=== PATIENT | male | born 1960 | race Native Hawaiian/Other Pacific Islander ===

== ENCOUNTER → 2017-01-10 | Outpatient (CLI) | payer OTHER ==
[2017-01-10 09:11] LABS: Basophils # (A) 0.1 k/uL (0-0.2); Basophils % (A) 1 %; CH 29.6; CHCM 32.8; Eosinophils # (A) 0.1 k/uL (0-0.7); Eosinophils % (A) 1 %; HCT 44.1 % (39.0-53.0); HDW 2.19; HGB 14.7 gm/dL (13.0-17.5); Luc # (Auto) 0.15; Luc % (Auto) 1; Lymphocytes # (A) 1.6 k/uL (1.0-4.8); Lymphocytes % (A) 13 %; MCH 30.2 pg (25.0-35.0); MCHC 33.3 g/dL (31.0-37.0); MCV 90.7 fL (80.0-100.0); Mean Platelet Volume 6.6; Monocytes # (A) 0.6 k/uL (0-1.0); Monocytes % (A) 5 %; Neutrophils # (A) 10.2 k/uL (1.3-7.7); Neutrophils % (A) 80 %; RBC 4.86 m/uL (4.30-5.90); RDW 13.6 % (11.5-15.5); WBC 12.8 k/uL (3.8-10.6); WBC (Perox) 13.84
[2017-01-10 10:08] LABS: ALT 27 U/L (21-72); AST 25 U/L (17-59); Alkaline Phosphatase 64 U/L (38-126); Anion Gap 11 mmol/L; Blood Urea Nitrogen 10 mg/dL (9-20); Calcium 9.9 mg/dL (8.4-10.2); Carbon Dioxide 27 mmol/L (22-30); Chloride 100 mmol/L (98-107); Cholesterol 191 mg/dL (<200); Glucose 92 mg/dL (74-99); HDL Cholesterol 82 mg/dL (40-60); Non-African American GFR(MDRD) >60 (>60 ml/min/1.73 sqM); Potassium 3.9 mmol/L (3.5-5.1); Sodium 138 mmol/L (137-145); Total Bilirubin 0.6 mg/dL (0.2-1.3); Total Protein 6.7 g/dL (6.3-8.2)
[2017-01-10 11:53] LABS: Hemoglobin A1C 6.3 % (4.2-6.1)
[2017-01-10 13:07] LABS: Prostate Specific Antigen 0.34 ng/mL (0.00-4.00)
== END | disposition home or self-care (01) ==
LOC: LABWHC1 08:35
PROVIDERS: ATTEND Family Medicine
DX: Z00.01 Encounter for general adult medical examination with abnormal findings (principal)
CPT/HCPCS: 36415; 80053; 80061; 82306; 83036; 84153; 84443; 85025

== ENCOUNTER → 2017-04-15 | Outpatient (CLI) | payer OTHER ==
[2017-04-15 10:57] LABS: Basophils # (A) 0.1 k/uL (0-0.2); Basophils % (A) 1 %; CH 29.4; CHCM 32.3; Eosinophils # (A) 0.2 k/uL (0-0.7); Eosinophils % (A) 3 %; HCT 43.5 % (39.0-53.0); HGB 13.8 gm/dL (13.0-17.5); Luc # (Auto) 0.07; Luc % (Auto) 1; Lymphocytes # (A) 2.3 k/uL (1.0-4.8); Lymphocytes % (A) 31 %; MCH 29.1 pg (25.0-35.0); MCHC 31.8 g/dL (31.0-37.0); MCV 91.5 fL (80.0-100.0); Mean Platelet Volume 7.3; Monocytes # (A) 0.5 k/uL (0-1.0); Monocytes % (A) 6 %; Neutrophils # (A) 4.2 k/uL (1.3-7.7); Neutrophils % (A) 57 %; RBC 4.76 m/uL (4.30-5.90); RDW 13.7 % (11.5-15.5); WBC 7.3 k/uL (3.8-10.6); WBC (Perox) 7.47
[2017-04-15 11:11] LABS: ALT 46 U/L (21-72); AST 25 U/L (17-59); Alkaline Phosphatase 92 U/L (38-126); Anion Gap 5 mmol/L; Blood Urea Nitrogen 11 mg/dL (9-20); Carbon Dioxide 30 mmol/L (22-30); Chloride 101 mmol/L (98-107); Glucose 99 mg/dL (74-99); Non-African American GFR(MDRD) >60 (>60 ml/min/1.73 sqM); Potassium 5.1 mmol/L (3.5-5.1); Sodium 136 mmol/L (137-145); Total Bilirubin 0.8 mg/dL (0.2-1.3); Total Protein 6.5 g/dL (6.3-8.2)
== END | disposition home or self-care (01) ==
LOC: LABWHC1 10:07
PROVIDERS: ATTEND Family Medicine
DX: E11.9 Type 2 diabetes mellitus without complications (principal)
CPT/HCPCS: 36415; 80053; 83036; 85025

== ENCOUNTER → 2017-08-12 | Outpatient (CLI) | payer OTHER ==
[2017-08-12 11:10] LABS: Basophils # (A) 0.1 k/uL (0-0.2); Basophils % (A) 1 %; Eosinophils # (A) 0.2 k/uL (0-0.7); Eosinophils % (A) 4 %; HCT 39.5 % (39.0-53.0); Lymphocytes # (A) 1.9 k/uL (1.0-4.8); Lymphocytes % (A) 30 %; MCH 28.8 pg (25.0-35.0); MCHC 32.9 g/dL (31.0-37.0); MCV 87.7 fL (80.0-100.0); Mean Platelet Volume 7.6; Monocytes # (A) 0.5 k/uL (0-1.0); Monocytes % (A) 7 %; Neutrophils # (A) 3.6 k/uL (1.3-7.7); Neutrophils % (A) 56 %; Platelet Count 183 k/uL (150-450); RBC 4.51 m/uL (4.30-5.90); RDW 13.2 % (11.5-15.5); WBC 6.4 k/uL (3.8-10.6)
[2017-08-12 11:17] LABS: ALT 39 U/L (21-72); AST 45 U/L (17-59); Alkaline Phosphatase 67 U/L (38-126); Anion Gap 11 mmol/L; Blood Urea Nitrogen 11 mg/dL (9-20); Calcium 9.5 mg/dL (8.4-10.2); Carbon Dioxide 31 mmol/L (22-30); Chloride 99 mmol/L (98-107); Cholesterol 177 mg/dL (<200); Glucose 121 mg/dL (74-99); HDL Cholesterol 75 mg/dL (40-60); LDL Cholesterol,Calculated 76 mg/dL (0-99); Potassium 4.5 mmol/L (3.5-5.1); Sodium 141 mmol/L (137-145); Total Bilirubin 0.6 mg/dL (0.2-1.3); Total Protein 6.5 g/dL (6.3-8.2); Triglycerides 128 mg/dL (<150)
[2017-08-12 11:45] LABS: Prostate Specific Antigen 0.43 ng/mL (0.00-4.00)
== END | disposition home or self-care (01) ==
LOC: LABWHC1 10:32
PROVIDERS: ATTEND Family Medicine
DX: Z00.01 Encounter for general adult medical examination with abnormal findings (principal)
CPT/HCPCS: 36415; 80053; 80061; 82306; 84153; 85025

== ENCOUNTER 2018-04-11 09:41 | Inpatient (IN) | payer MEDICARE, OTHER ==
[2018-04-11] MEDS ORDERED: SODIUM CHLORIDE 0.9% 1,000 ML IV ONE ×3 (09:49→11:18)
[2018-04-11] MEDS ORDERED: LORazepam 2 MG/ML INJ IV STA ×3 (09:59→16:08)
--- NOTE | 2018-04-11 10:14 | ED ---
Altered Mental Status HPI - General Source: patient, EMS, RN notes reviewed Mode of arrival: EMS Limitations: altered mental status <Brian Humphreys - Last Filed: 04/11/18 11:19> <Alejandro Melgoza - Last Filed: 04/12/18 07:34> - General Stated Complaint: altered Time Seen by Provider: 04/11/18 09:48 - History of Present Illness Initial Comments: This a 57-year-old male presents emergency department via EMS for altered mental status. Information is very limited in primary given by EMS. They were called to his residency by family for mL behavior. Patient is repetitive stating that he needs air he does have a history of diabetes, alcoholism. Patient denies any areas or complaint including pain. Patient has had no recent illnesses. No obvious injuries. Unclear patient takes any medications currently unclear if he has meant drugs or alcohol on board. After being in the ER for shortness the time. Patient decided be more responsive. Patient states that he's been sick for last few days with he goes the flu. Patient states that nausea vomiting diarrhea. He complains of abdominal pain. Patient states has not drank alcohol in one month. It no history of seizures. Patient states that his family called 911. (Brian Humphreys) - Related Data Home Medications Medication Instructions Recorded Confirmed Omeprazole [PriLOSEC] 20 mg PO AC-BID 01/20/14 04/11/18 Escitalopram [Lexapro] 20 mg PO BID 04/11/18 04/11/18 Gabapentin [Neurontin] 200 mg PO TID 04/11/18 04/11/18 Metoprolol Tartrate [Lopressor] 50 mg PO BID 04/11/18 04/11/18 Pioglitazone HCl [Actos] 15 mg PO DAILY 04/11/18 04/11/18 metFORMIN HCL [Glucophage] 1,000 mg PO AC-BID 04/11/18 04/11/18 Allergies Allergy/AdvReac Type Severity Reaction Status Date / Time codeine AdvReac Nausea & Verified 08/05/15 09:25 Vomiting Review of Systems ROS Other: All systems not noted in ROS Statement are negative. <Brian Humphreys - Last Filed: 04/11/18 11:19> ROS Other: All systems not noted in ROS Statement are negative. <Alejandro Melgoza - Last Filed: 04/12/18 07:34> ROS Statement: Those systems with pertinent positive or pertinent negative responses have been documented in the HPI. Past Medical History Past Medical History: Diabetes Mellitus, GERD/Reflux, Hypertension History of Any Multi-Drug Resistant Organisms: None Reported Past Surgical History: No Surgical Hx Reported Past Anesthesia/Blood Transfusion Reactions: No Reported Reaction Past Psychological History: Anxiety, Depression Smoking Status: Current every day smoker Past Alcohol Use History: None Reported Past Drug Use History: None Reported <Brian Humphreys - Last Filed: 04/11/18 11:19> - Past Family History Father Family Medical History: Cancer, Diabetes Mellitus, Eye Disorder Additional Family Medical History / Comment(s): Father had stomach cancer. He was a diabetic and was blind. He had amputations. Mother Family Medical History: Musculoskeletal Disorder, Neurologic Disorder Additional Family Medical History / Comment(s): Mother is . She had parkinson's and neuropathies. <Alejandro Melgoza - Last Filed: 04/12/18 07:34> General Exam Limitations: altered mental status General appearance: alert, in no apparent distress Head exam: Present: atraumatic, normocephalic, normal inspection Eye exam: Present: normal appearance, PERRL, EOMI. Absent: scleral icterus, conjunctival injection, periorbital swelling ENT exam: Present: normal exam, normal oropharynx, mucous membranes moist, TM's normal bilaterally Neck exam: Present: normal inspection, full ROM. Absent: tenderness, meningismus, lymphadenopathy Respiratory exam: Present: normal lung sounds bilaterally. Absent: respiratory distress, wheezes, rales, rhonchi, stridor Cardiovascular Exam: Present: regular rate, normal rhythm, normal heart sounds. Absent: systolic murmur, diastolic murmur, rubs, gallop, clicks GI/Abdominal exam: Present: soft, tenderness, normal bowel sounds. Absent: distended, guarding, rebound, rigid Neurological exam: Present: alert, oriented X3 Skin exam: Present: warm, dry, intact, normal color. Absent: rash <Brian Humphreys - Last Filed: 04/11/18 11:19> Limitations: altered mental status General appearance: alert, appears intoxicated, anxious, in distress Head exam: Present: atraumatic, normocephalic, normal inspection Eye exam: Present: normal appearance, PERRL, EOMI. Absent: scleral icterus, conjunctival injection, periorbital swelling ENT exam: Present: normal exam, mucous membranes moist Neck exam: Present: normal inspection. Absent: tenderness, meningismus, lymphadenopathy Respiratory exam: Present: normal lung sounds bilaterally. Absent: respiratory distress, wheezes, rales, rhonchi, stridor Cardiovascular Exam: Present: regular rate, normal rhythm, normal heart sounds. Absent: systolic murmur, diastolic murmur, rubs, gallop, clicks GI/Abdominal exam: Present: soft, normal bowel sounds. Absent: distended, tenderness, guarding, rebound, rigid Extremities exam: Present: normal inspection, full ROM, normal capillary refill. Absent: tenderness, pedal edema, joint swelling, calf tenderness Back exam: Present: normal inspection Neurological exam: Present: alert, oriented X3, CN II-XII intact Psychiatric exam: Present: normal affect, agitated, anxious Skin exam: Present: warm, dry, intact, normal color. Absent: rash <Alejandro Melgoza - Last Filed: 04/12/18 07:34> Course <Brian Humphreys - Last Filed: 04/11/18 11:19> <Alejandro Melgoza - Last Filed: 04/12/18 07:34> Vital Signs 04/11/18 04/11/18 04/11/18 09:50 10:00 10:10 Temperature Pulse Rate 60 62 Respiratory 22 24 Rate Blood Pressure 156/76 95/77 80/65 O2 Sat by Pulse 95 Oximetry 04/11/18 04/11/18 04/11/18 10:20 10:30 10:40 Temperature Pulse Rate 63 64 Respiratory 24 24 Rate Blood Pressure 80/65 48/31 58/40 O2 Sat by Pulse Oximetry 04/11/18 04/11/18 04/11/18 10:50 11:00 11:30 Temperature Pulse Rate 66 64 66 Respiratory 24 21 15 Rate Blood Pressure 59/41 58/38 53/31 O2 Sat by Pulse 69 L 97 Oximetry 04/11/18 04/11/18 04/11/18 11:40 11:50 12:00 Temperature Pulse Rate 64 64 66 Respiratory 14 14 14 Rate Blood Pressure 56/36 73/51 89/59 O2 Sat by Pulse Oximetry 04/11/18 04/11/18 04/11/18 12:10 12:30 12:40 Temperature Pulse Rate 69 69 69 Respiratory 14 20 20 Rate Blood Pressure 95/61 93/61 94/66 O2 Sat by Pulse Oximetry 04/11/18 04/11/18 04/11/18 12:50 13:00 13:10 Temperature Pulse Rate 74 72 72 Respiratory 20 20 20 Rate Blood Pressure 112/92 100/65 95/62 O2 Sat by Pulse Oximetry 04/11/18 04/11/18 04/11/18 13:20 14:00 14:10 Temperature Pulse Rate 72 73 73 Respiratory 20 22 20 Rate Blood Pressure 93/61 93/61 93/61 O2 Sat by Pulse Oximetry 04/11/18 04/11/18 04/11/18 14:20 14:30 14:40 Temperature Pulse Rate 73 76 Respiratory 20 20 20 Rate Blood Pressure 93/61 88/62 83/61 O2 Sat by Pulse Oximetry 04/11/18 04/11/18 04/11/18 14:50 15:00 15:10 Temperature Pulse Rate 73 73 77 Respiratory 20 20 20 Rate Blood Pressure 96/64 94/60 92/55 O2 Sat by Pulse Oximetry 04/11/18 04/11/18 04/11/18 15:20 15:30 15:40 Temperature Pulse Rate 75 80 Respiratory 20 20 20 Rate Blood Pressure 91/57 93/60 97/63 O2 Sat by Pulse Oximetry 04/11/18 04/11/18 04/11/18 15:50 16:00 16:10 Temperature Pulse Rate 78 78 84 Respiratory 20 23 20 Rate Blood Pressure 95/61 87/58 112/72 O2 Sat by Pulse 100 100 Oximetry 04/11/18 04/11/18 04/11/18 16:20 16:30 16:45 Temperature Pulse Rate 82 79 78 Respiratory 21 20 20 Rate Blood Pressure 97/62 90/62 89/54 O2 Sat by Pulse Oximetry 04/11/18 04/11/18 04/11/18 17:00 17:15 17:30 Temperature Pulse Rate 78 78 84 Respiratory 20 20 20 Rate Blood Pressure 86/55 92/62 94/58 O2 Sat by Pulse Oximetry 04/11/18 04/11/18 04/11/18 17:45 18:00 18:01 Temperature 95.6 F L Pulse Rate 89 81 81 Respiratory 27 H 30 H 20 Rate Blood Pressure 123/88 88/51 95/59 O2 Sat by Pulse 99 100 Oximetry 04/11/18 18:15 Temperature Pulse Rate 81 Respiratory 30 H Rate Blood Pressure 90/60 O2 Sat by Pulse 100 Oximetry - Reevaluation(s) Reevaluation #1: 04/11/18 10:38 Upon initial vitals unable to obtain temp rectal temp was attempted with no success. Patient is cool to the touch. Warming will be started at this time. Concern as he is hypotensive which is worsening. Patient is given 2 L of IV fluids. Second peripheral line was ordered though central line will be placed secondary to hypotension. Celeste was ordered to assess urinary output. Labs were obtained. Rocephin will be ordered for concerns for infection causing hypotension. (Brian Humphreys) Reevaluation #2: 04/11/18 11:19 Critical labs were reported at this time with lactic acidosis 22.5, white count 25, critically low CO2 with an elevated ammonia. 30 mL/kg fluid bolus is initiated on 3 L. (Brian Humphreys) Reevaluation #3: 04/11/18 13:06 Patient significantly low blood pressure low temperature and bradycardic, central line was placed, patient does have blood pressure medication added, left -sided, patient given significant fluid bolus, multiple antibiotics, patient intubated for airway and sedation as well as patient safety, (Alejandro Melgoza) Reevaluation #4: 04/11/18 17:[address] Peace for nephrology after Dr. Casey for she was evaluated patient, patient will be scheduled for dialysis, we will obtain vascular consult by Dr. Harvey for emergent dialysis. 04/11/18 17:05 (Alejandro Melgoza) Reevaluation #5: 04/11/18 17:01 Patient is still not made urine despite significant amounts of IV fluid, pressure control drugs, patient will continue on IV antibiotics, started on bicarb drip secondary severe acidosis (Alejandro Melgoza) Procedures - Central Line Placement Right IJ Consent Obtained: emergent situation Time Out Performed: Yes Patient Placed on Monitor/Pulse Ox: Yes MD Prep: mask, gown, gloves Central Line Prep: Chlorhexidine scrub Ultrasound Used for Placement: Yes Central Line Lumen Inserted: triple Bloods Obtained for Lab: Yes Central Line Position: good blood return Dressing Applied: Tegaderm Post Procedure X-Ray: tip of catheter in good position Patient Tolerated Procedure: well Complications: none <Alejandro Melgoza - Last Filed: 04/12/18 07:34> Medical Decision Making - Lab Data Result diagrams: 04/11/18 10:29 <Brian Humphreys - Last Filed: 04/11/18 11:19> - Lab Data Result diagrams: 04/12/18 03:18 04/12/18 03:18 - EKG Data -: EKG Interpreted by Me (EKG shows sinus rhythm rate of 74, AR 240, QRS 06, QTc 621) - Radiology Data Radiology results: report reviewed (CT brain negative chest x-rays negative), image reviewed <Alejandro Melgoza - Last Filed: 04/12/18 07:34> - Medical Decision Making 57 male the ER with altered mental status, multifactorial cardiopulmonary collapse, patient bradycardic hypotensive hypothermic, placed on antibiotics central line in abated secondary to acute respiratory failure. Patient be admitted for ICU treatment and care (Alejandro Melgoza) - Lab Data Lab Results 04/11/18 04/11/18 04/11/18 Range/Units 10:29 10:29 10:29 WBC 25.6 H (3.8-10.6) k/uL RBC 4.16 L (4.30-5.90) m/uL Hgb 12.5 L (13.0-17.5) gm/dL Hct 38.8 L (39.0-53.0) % MCV 93.3 (80.0-100.0) fL MCH 30.0 (25.0-35.0) pg MCHC 32.1 (31.0-37.0) g/dL RDW 13.2 (11.5-15.5) % Plt Count 382 (150-450) k/uL Neutrophils % 83 % Lymphocytes % 13 % Monocytes % 3 % Eosinophils % 0 % Basophils % 0 % Neutrophils # 21.2 H (1.3-7.7) k/uL Lymphocytes # 3.2 (1.0-4.8) k/uL Monocytes # 0.8 (0-1.0) k/uL Eosinophils # 0.0 (0-0.7) k/uL Basophils # 0.1 (0-0.2) k/uL Manual Slide Review Performed PT (9.0-12.0) sec INR (<1.2) APTT (22.0-30.0) sec Sample Site ABG pH (7.35-7.45) ABG pCO2 (35-45) mmHg ABG pO2 (83-108) mmHg ABG HCO3 (21-25) mmol/L ABG Total CO2 (19-24) mmol/L ABG O2 Saturation (94-97) % ABG Base Excess mmol/L Tyler Test FiO2 % Sodium (137-145) mmol/L Potassium (3.5-5.1) mmol/L Chloride (98-107) mmol/L Carbon Dioxide (22-30) mmol/L Anion Gap mmol/L BUN (9-20) mg/dL Creatinine (0.66-1.25) mg/dL Est GFR (CKD-EPI)AfAm (>60 ml/min/1.73 sqM) Est GFR (CKD-EPI)NonAf (>60 ml/min/1.73 sqM) Glucose (74-99) mg/dL POC Glucose (mg/dL) (75-99) mg/dL POC Glu Head Of Loss Prevention ID Estimated Ave Glu mg/dL Hemoglobin A1c (4.0-6.0) % Lactic Ac Sepsis Rflx Plasma Lactic Acid Marvin 22.5 H* (0.7-2.0) mmol/L Calcium (8.4-10.2) mg/dL Total Bilirubin (0.2-1.3) mg/dL AST (17-59) U/L ALT (21-72) U/L Alkaline Phosphatase (38-126) U/L Ammonia 71 H (<30) umol/L Total Creatine Kinase 50 L (55-170) U/L CK-MB (CK-2) 1.4 (0.0-2.4) ng/mL CK-MB (CK-2) Rel Index 2.8 Troponin I 0.019 (0.000-0.034) ng/mL Total Protein (6.3-8.2) g/dL Albumin (3.5-5.0) g/dL Serum Alcohol mg/dL 04/11/18 04/11/18 04/11/18 Range/Units 10:29 10:29 10:29 WBC (3.8-10.6) k/uL RBC (4.30-5.90) m/uL Hgb (13.0-17.5) gm/dL Hct (39.0-53.0) % MCV (80.0-100.0) fL MCH (25.0-35.0) pg MCHC (31.0-37.0) g/dL RDW (11.5-15.5) % Plt Count (150-450) k/uL Neutrophils % % Lymphocytes % % Monocytes % % Eosinophils % % Basophils % % Neutrophils # (1.3-7.7) k/uL Lymphocytes # (1.0-4.8) k/uL Monocytes # (0-1.0) k/uL Eosinophils # (0-0.7) k/uL Basophils # (0-0.2) k/uL Manual Slide Review PT 11.0 (9.0-12.0) sec INR 1.1 (<1.2) APTT 33.0 H (22.0-30.0) sec Sample Site ABG pH (7.35-7.45) ABG pCO2 (35-45) mmHg ABG pO2 (83-108) mmHg ABG HCO3 (21-25) mmol/L ABG Total CO2 (19-24) mmol/L ABG O2 Saturation (94-97) % ABG Base Excess mmol/L Tyler Test FiO2 % Sodium 120 L (137-145) mmol/L Potassium 3.4 L (3.5-5.1) mmol/L Chloride 72 L* (98-107) mmol/L Carbon Dioxide <5 L* (22-30) mmol/L Anion Gap mmol/L BUN 56 H (9-20) mg/dL Creatinine 9.37 H* (0.66-1.25) mg/dL Est GFR (CKD-EPI)AfAm 6 (>60 ml/min/1.73 sqM) Est GFR (CKD-EPI)NonAf 6 (>60 ml/min/1.73 sqM) Glucose 222 H (74-99) mg/dL POC Glucose (mg/dL) (75-99) mg/dL POC Glu Head Of Loss Prevention ID Estimated Ave Glu mg/dL 151 Hemoglobin A1c 6.9 H (4.0-6.0) % Lactic Ac Sepsis Rflx Plasma Lactic Acid Marvin (0.7-2.0) mmol/L Calcium 8.9 (8.4-10.2) mg/dL Total Bilirubin 0.5 (0.2-1.3) mg/dL AST 58 (17-59) U/L ALT 56 (21-72) U/L Alkaline Phosphatase 60 (38-126) U/L Ammonia (<30) umol/L Total Creatine Kinase (55-170) U/L CK-MB (CK-2) (0.0-2.4) ng/mL CK-MB (CK-2) Rel Index Troponin I (0.000-0.034) ng/mL Total Protein 6.2 L (6.3-8.2) g/dL Albumin 3.9 (3.5-5.0) g/dL Serum Alcohol <10 mg/dL 04/11/18 04/11/18 04/11/18 Range/Units 11:16 11:55 12:42 WBC (3.8-10.6) k/uL RBC (4.30-5.90) m/uL Hgb (13.0-17.5) gm/dL Hct (39.0-53.0) % MCV (80.0-100.0) fL MCH (25.0-35.0) pg MCHC (31.0-37.0) g/dL RDW (11.5-15.5) % Plt Count (150-450) k/uL Neutrophils % % Lymphocytes % % Monocytes % % Eosinophils % % Basophils % % Neutrophils # (1.3-7.7) k/uL Lymphocytes # (1.0-4.8) k/uL Monocytes # (0-1.0) k/uL Eosinophils # (0-0.7) k/uL Basophils # (0-0.2) k/uL Manual Slide Review PT (9.0-12.0) sec INR (<1.2) APTT (22.0-30.0) sec Sample Site rbrach ABG pH 7.01 L* (7.35-7.45) ABG pCO2 18 L* (35-45) mmHg ABG pO2 >400 H (83-108) mmHg ABG HCO3 5 L* (21-25) mmol/L ABG Total CO2 5 L (19-24) mmol/L ABG O2 Saturation 100.0 H (94-97) % ABG Base Excess -26.7 mmol/L Tyler Test Yes FiO2 100 % Sodium (137-145) mmol/L Potassium (3.5-5.1) mmol/L Chloride (98-107) mmol/L Carbon Dioxide (22-30) mmol/L Anion Gap mmol/L BUN (9-20) mg/dL Creatinine (0.66-1.25) mg/dL Est GFR (CKD-EPI)AfAm (>60 ml/min/1.73 sqM) Est GFR (CKD-EPI)NonAf (>60 ml/min/1.73 sqM) Glucose (74-99) mg/dL POC Glucose (mg/dL) 250 H (75-99) mg/dL POC Glu Head Of Loss Prevention ID Jorge Kirkland Estimated Ave Glu mg/dL Hemoglobin A1c (4.0-6.0) % Lactic Ac Sepsis Rflx Y Plasma Lactic Acid Marvin (0.7-2.0) mmol/L Calcium (8.4-10.2) mg/dL Total Bilirubin (0.2-1.3) mg/dL AST (17-59) U/L ALT (21-72) U/L Alkaline Phosphatase (38-126) U/L Ammonia (<30) umol/L Total Creatine Kinase (55-170) U/L CK-MB (CK-2) (0.0-2.4) ng/mL CK-MB (CK-2) Rel Index Troponin I (0.000-0.034) ng/mL Total Protein (6.3-8.2) g/dL Albumin (3.5-5.0) g/dL Serum Alcohol mg/dL Critical Care Time Critical Care Time: Yes Total Critical Care Time: 95 <Alejandro Melgoza - Last Filed: 04/12/18 07:34> Disposition <Brian Humphreys - Last Filed: 04/11/18 11:19> Is patient prescribed a controlled substance at d/c from ED?: No <Alejandro Melgoza - Last Filed: 04/12/18 07:34> Clinical Impression: Altered mental status, Delirium due to general medical condition, Lactic acidosis, Acute renal failure, Alcohol abuse, Hyperglycemia, Acute respiratory failure, Drug overdose, Hypovolemic shock Disposition: ADMITTED IP TO THIS HOSP Condition: Critical
[2018-04-11] MEDS ORDERED: NALOXONE 0.4 MG/ML 1 ML VIAL IV STA (10:38)
[2018-04-11] MEDS ORDERED: HYDROCORTISONE SUCCINATE 100 MG/2 ML VIAL IV STA (10:41)
[2018-04-11 10:47] LABS: Basophils # (A) 0.1 k/uL (0-0.2); Basophils % (A) 0 %; Eosinophils % (A) 0 %; HCT 38.8 % (39.0-53.0); HGB 12.5 gm/dL (13.0-17.5); Lymphocytes # (A) 3.2 k/uL (1.0-4.8); Lymphocytes % (A) 13 %; MCHC 32.1 g/dL (31.0-37.0); MCV 93.3 fL (80.0-100.0); Mean Platelet Volume 7.1; Monocytes # (A) 0.8 k/uL (0-1.0); Monocytes % (A) 3 %; Neutrophils # (A) 21.2 k/uL (1.3-7.7); Neutrophils % (A) 83 %; Platelet Count 382 k/uL (150-450); RBC 4.16 m/uL (4.30-5.90); RDW 13.2 % (11.5-15.5); WBC 25.6 k/uL (3.8-10.6)
[2018-04-11] MEDS ORDERED: fentaNYL (PF) 50 MCG/ML 2 ML AMP IV STA ×2 (10:50→13:45)
[2018-04-11 10:57] LABS: INR 1.1 (<1.2)
[2018-04-11 11:02] LABS: ALT 56 U/L (21-72); AST 58 U/L (17-59); Albumin 3.9 g/dL (3.5-5.0); Alcohol <10 mg/dL; Alkaline Phosphatase 60 U/L (38-126); Blood Urea Nitrogen 56 mg/dL (9-20); Calcium 8.9 mg/dL (8.4-10.2); Glucose 222 mg/dL (74-99); Potassium 3.4 mmol/L (3.5-5.1); Sodium 120 mmol/L (137-145); Total Bilirubin 0.5 mg/dL (0.2-1.3); Total Protein 6.2 g/dL (6.3-8.2)
[2018-04-11] MEDS ORDERED: MIDAZOLAM 1 MG/ML 5 ML VIAL IV STA ×5 (11:13→16:21)
[2018-04-11 11:16] LABS: Lactic Acid, Venous 22.5 mmol/L (0.7-2.0)
[2018-04-11 11:22] LABS: Creatine Kinase MB 1.4 ng/mL (0.0-2.4); Troponin I 0.019 ng/mL (0.000-0.034)
[2018-04-11] MEDS ORDERED: SUCCINYLCHOLINE CHLORIDE VIAL 200 MG/10 ML VIAL IV STA (11:23)
[2018-04-11 11:28] LABS: Carbon Dioxide <5 mmol/L (22-30)
[2018-04-11 11:31] LABS: Chloride 72 mmol/L (98-107)
[2018-04-11] MEDS: NOREPINEPHRINE 4 MG in SODIUM CHLORIDE 0.9% 250 ML IV ONE ×2 (11:45→19:51)
[2018-04-11] MEDS ORDERED: SODIUM CHLORIDE 0.9% 1,000 ML IV STA ×2 (11:52)
[2018-04-11] MEDS ORDERED: PIPERACILLIN-TAZOBACTAM 3.375 GM in SODIUM CHLORIDE 0.9% 100 ML IVPB STA (11:52)
[2018-04-11] MEDS ORDERED: VANCOMYCIN IV PER PHARMACY 1 EACH MISC MISCELLANE PRN (11:52)
[2018-04-11] MEDS ORDERED: SODIUM CHLORIDE 0.9% 500 ML 500 ML IV STA (11:52)
[2018-04-11] MEDS ORDERED: SODIUM BICARB 8.4% 50 ML SYR (1 MEQ/ML) IV ONE ×2 (11:53)
[2018-04-11 11:58] LABS: ABG Base Excess -26.7 mmol/L; ABG PO2 >400 mmHg (83-108); ABG TCO2 5 mmol/L (19-24)
[2018-04-11] MEDS ORDERED: VANCOMYCIN 1,750 MG in SODIUM CHLORIDE 0.9% 500 ML 500 ML IVPB STA (12:01)
[2018-04-11 12:04] LABS: ABG HCO3 5 mmol/L (21-25); ABG PCO2 18 mmHg (35-45); ABG PH 7.01 (7.35-7.45)
--- NOTE | 2018-04-11 12:46 | XR ---
EXAMINATION TYPE: XR chest 1V portable DATE OF EXAM: 04/11/2018 COMPARISON: 02/12/2011 INDICATION: Pain, line placement TECHNIQUE: Single frontal view of the chest is obtained. FINDINGS: The heart size is normal. The pulmonary vasculature is normal. The lungs are clear. There is placement of a right central venous catheter with tip in the proximal right atrium. No pneum othorax. Endotracheal tube tip above dasha. Nasogastric tube present with tip in the proximal the ab domen. IMPRESSION: 1. No pneumothorax post line placement. Tip is in the proximal right atrium. 2. Additional lines and catheters discussed above. Nasogastric tube could be advanced approximately 3 cm for more typical for placement.
[2018-04-11 12:58] LABS: Glucose,Whole Blood 250 mg/dL (75-99)
[2018-04-11] MEDS ORDERED: NALOXONE 0.4 MG/ML 1 ML VIAL IV PRN (13:08)
[2018-04-11] MEDS ORDERED: LACTATED RINGERS 1,000 ML IV SCH (13:15)
--- NOTE | 2018-04-11 13:58 | CT ---
EXAMINATION TYPE: CT brain wo con DATE OF EXAM: 04/11/2018 COMPARISON: NONE HISTORY: Altered mental status changes CT DLP: 1179.4 mGycm. Automated Exposure Control for Dose Reduction was Utilized. TECHNIQUE: CT scan of the head is performed without contrast. FINDINGS: Punctate basal ganglia calcification is seen on the left. There is no acute intracranial h emorrhage or midline shift identified. There is diffuse ventricular and sulcal prominence consistent with diffuse age-related cerebral atrophy. There are a few patchy areas of hypoattenuation in the pe riventricular white matter most commonly related to chronic small vessel ischemic change. The globes are intact and the visualized sinuses are clear. IMPRESSION: No acute intracranial hemorrhage, mass effect, or midline shift is seen. No acute intrac ranial process.
[2018-04-11] MEDS ORDERED: MORPHINE SULFATE 2 MG/ML SYRINGE IVP PRN (14:08)
[2018-04-11] MEDS ORDERED: ONDANSETRON 4 MG/2 ML VIAL IVP PRN (14:08)
[2018-04-11 14:26] LABS: ABG Base Excess -23.6 mmol/L; ABG Oxygen Saturation 99.6 % (94-97); ABG PO2 208 mmHg (83-108); ABG TCO2 7 mmol/L (19-24)
[2018-04-11 14:46] LABS: ABG HCO3 6 mmol/L (21-25); ABG PCO2 19 mmHg (35-45); ABG PH 7.11 (7.35-7.45)
[2018-04-11] MEDS ORDERED: MIDAZOLAM HCL 100 MG in SODIUM CHLORIDE 0.9% 80 ML IV SCH (15:00)
[2018-04-11] MEDS ORDERED: fentaNYL (PF) 50 MCG/ML 2 ML AMP IV PRN (15:12)
[2018-04-11] MEDS ORDERED: DEXTROSE 5% IN WATER 1,000 ML with SODIUM BICARB (1 MEQ/ML) 150 ML IV SCH (15:15)
[2018-04-11] MEDS: DEXTROSE 5% IN WATER 1,000 ML with SODIUM BICARB (1 MEQ/ML) 100 ML IV SCH (15:22)
--- NOTE | 2018-04-11 16:00 | P.HPIM ---
History of Present Illness H&P Date: 04/11/18 Chief Complaint: Altered mental status Patient was seen and evaluated by me in the emergency room. Patient is intubated and unable to provide any history. Most of the history was obtained by chart review and nursing staff report. This is a 57-year-old male was brought into the emergency room by EMS today for altered mental status and confusion. Apparently patient lives by himself and was found by his relatives today when they went to check on him on the floor confused and was saying that he needs air. EMS were called and patient was brought into the emergency room. Patient was awake and very agitated on presentation. He denies any alcohol abuse. Patient was noted to be hypothermic on presentation with temperature of 92.5. He was also tachycardic with a blood pressure of 70/40. Patient had multiple IV fluid boluses. Initial lab work showed evidence of acute kidney failure with acute metabolic acidosis. Patient was eventually started on IV pressors and was intubated and started on mechanical ventilation. Computed tomography scan of the brain in the emergency room showed no acute findings. When I saw him, patient has just returned from computed tomography scan of the brain. He was intubated but not sedated. He was very agitated. He already received 3 L of fluid with normal saline 0.9. Patient is currently anuric. He has a bear hugger and his temperature is 90.3. Broad-spectrum antibiotic ordered. Review of Systems Unable to review other systems as patient is intubated Past Medical History Past Medical History: Diabetes Mellitus, GERD/Reflux, GI Bleed, Hypertension, Liver Disease, Skin Disorder Additional Past Medical History / Comment(s): Barretts esophagus, gastritis, upper GI bleed, ETOH abuse, alcoholic hepatitis, pancytopenia, NIDDM type II, neuropathy bilateral feet, chronic low back pain, bulging disces, gout bilateral knees and ankles, UTI History of Any Multi-Drug Resistant Organisms: None Reported Past Surgical History: Orthopedic Surgery Additional Past Surgical History / Comment(s): EGDs, colonoscopies, R knee arthroscopy Past Anesthesia/Blood Transfusion Reactions: No Reported Reaction Smoking Status: Current every day smoker - Past Family History Father Family Medical History: Cancer, Diabetes Mellitus, Eye Disorder Additional Family Medical History / Comment(s): Father had stomach cancer. He was a diabetic and was blind. He had amputations. Mother Family Medical History: Musculoskeletal Disorder, Neurologic Disorder Additional Family Medical History / Comment(s): Mother is . She had parkinson's and neuropathies. Medications and Allergies Home Medications Medication Instructions Recorded Confirmed Type Omeprazole [PriLOSEC] 20 mg PO AC-BID 01/20/14 04/11/18 History Escitalopram [Lexapro] 20 mg PO BID 04/11/18 04/11/18 History Gabapentin [Neurontin] 200 mg PO TID 04/11/18 04/11/18 History Metoprolol Tartrate [Lopressor] 50 mg PO BID 04/11/18 04/11/18 History Pioglitazone HCl [Actos] 15 mg PO DAILY 04/11/18 04/11/18 History metFORMIN HCL [Glucophage] 1,000 mg PO AC-BID 04/11/18 04/11/18 History Allergies Allergy/AdvReac Type Severity Reaction Status Date / Time codeine AdvReac Nausea & Verified 08/05/15 09:25 Vomiting Physical Exam Vitals: Vital Signs Pulse Resp BP Pulse Ox 04/11/18 12:10 69 14 95/61 04/11/18 12:00 66 14 89/59 04/11/18 11:50 64 14 73/51 04/11/18 11:40 64 14 56/36 04/11/18 11:30 66 15 53/31 04/11/18 11:00 64 21 58/38 97 04/11/18 10:50 66 24 59/41 69 L 04/11/18 10:40 58/40 04/11/18 10:30 64 24 48/31 04/11/18 10:20 63 24 80/65 04/11/18 10:10 62 24 80/65 04/11/18 10:00 60 22 95/77 95 04/11/18 09:50 156/76 Intake and Output 04/11/18 04/11/18 04/11/18 06:59 14:59 22:59 Intake Total 1.875 1.061 Balance 1.875 1.061 Intake: Intake, IV Titration 1.875 1.061 Amount Midazolam HCl 100 mg In 1.061 Sodium Chloride 0.9% 80 ml @ 0.02 MG/KG/HR 1.99 mls/hr IV .Q24H [facility] Rx#: [id number] Norepinephrine 4 mg In 1.875 Sodium Chloride 0.9% 250 ml @ Titrate IV .Q0M ONE Rx#:[id number] Other: Weight 86.636 kg General: The patient is intubated. He appeared agitated and uncomfortable Eye: there is normal conjunctiva bilaterally. Cardiovascular: Normal S1-S2, no S3-S4, no murmurs. Respiratory: Lungs clear to anterior chest auscultation bilaterally With ventilator sounds Gastrointestinal: Abdomen is soft, nontender Musculoskeletal: There is no pedal edema. Skin: Skin is warm and dry Results CBC & Chem 7: 04/11/18 10:29 04/11/18 10:29 Labs: Abnormal Lab Results - Last 24 Hours (Table) 04/11/18 04/11/18 04/11/18 Range/Units 10:29 10:29 10:29 WBC 25.6 H (3.8-10.6) k/uL RBC 4.16 L (4.30-5.90) m/uL Hgb 12.5 L (13.0-17.5) gm/dL Hct 38.8 L (39.0-53.0) % Neutrophils # 21.2 H (1.3-7.7) k/uL APTT (22.0-30.0) sec ABG pH (7.35-7.45) ABG pCO2 (35-45) mmHg ABG pO2 (83-108) mmHg ABG HCO3 (21-25) mmol/L ABG Total CO2 (19-24) mmol/L ABG O2 Saturation (94-97) % Sodium (137-145) mmol/L Potassium (3.5-5.1) mmol/L Chloride (98-107) mmol/L Carbon Dioxide (22-30) mmol/L BUN (9-20) mg/dL Creatinine (0.66-1.25) mg/dL Glucose (74-99) mg/dL POC Glucose (mg/dL) (75-99) mg/dL Plasma Lactic Acid Marvin 22.5 H* (0.7-2.0) mmol/L Ammonia 71 H (<30) umol/L Total Creatine Kinase 50 L (55-170) U/L Total Protein (6.3-8.2) g/dL 04/11/18 04/11/1804/11/18 Range/Units 10:29 10:29 11:55 WBC (3.8-10.6) k/uL RBC (4.30-5.90) m/uL Hgb (13.0-17.5) gm/dL Hct (39.0-53.0) % Neutrophils # (1.3-7.7) k/uL APTT 33.0 H (22.0-30.0) sec ABG pH 7.01 L* (7.35-7.45) ABG pCO2 18 L* (35-45) mmHg ABG pO2 >400 H (83-108) mmHg ABG HCO3 5 L* (21-25) mmol/L ABG Total CO2 5 L (19-24) mmol/L ABG O2 Saturation 100.0 H (94-97) % Sodium 120 L (137-145) mmol/L Potassium 3.4 L (3.5-5.1) mmol/L Chloride 72 L* (98-107) mmol/L Carbon Dioxide <5 L* (22-30) mmol/L BUN 56 H (9-20) mg/dL Creatinine 9.37 H* (0.66-1.25) mg/dL Glucose 222 H (74-99) mg/dL POC Glucose (mg/dL) (75-99) mg/dL Plasma Lactic Acid Marvin (0.7-2.0) mmol/L Ammonia (<30) umol/L Total Creatine Kinase (55-170) U/L Total Protein 6.2 L (6.3-8.2) g/dL 04/11/18 04/11/18 04/11/18 Range/Units 12:42 14:22 14:27 WBC (3.8-10.6) k/uL RBC (4.30-5.90) m/uL Hgb (13.0-17.5) gm/dL Hct (39.0-53.0) % Neutrophils # (1.3-7.7) k/uL APTT (22.0-30.0) sec ABG pH 7.11 L* (7.35-7.45) ABG pCO2 19 L* (35-45) mmHg ABG pO2 208 H (83-108) mmHg ABG HCO3 6 L* (21-25) mmol/L ABG Total CO2 7 L (19-24) mmol/L ABG O2 Saturation 99.6 H (94-97) % Sodium (137-145) mmol/L Potassium (3.5-5.1) mmol/L Chloride (98-107) mmol/L Carbon Dioxide (22-30) mmol/L BUN (9-20) mg/dL Creatinine (0.66-1.25) mg/dL Glucose (74-99) mg/dL POC Glucose (mg/dL) 250 H (75-99) mg/dL Plasma Lactic Acid Marvin 15.9 H* (0.7-2.0) mmol/L Ammonia (<30) umol/L Total Creatine Kinase (55-170) U/L Total Protein (6.3-8.2) g/dL Thrombosis Risk Factor Assmnt - Choose All That Apply Any of the Below Risk Factors Present?: Yes Each Factor Represents 1 point: Age 41-60 years, Medical pt on bed rest, Serious lung disease incl. pneumonia (< 1month) Other Risk Factors: Yes Each Risk Factor Represents 2 Points: Patient confined to bed Other congenital or acquired thrombophilia - If yes, enter type in comment: No Thrombosis Risk Factor Assessment Total Risk Factor Score: 5 Thrombosis Risk Factor Assessment Level: High Risk Assessment and Plan Assessment: 1. Acute metabolic acidosis: PH of 7.0. I ordered a bicarb drip. Nephrology consulted to evaluate if patient may require acute dialysis. Case discussed by ER staff with nephrology awaiting recommendations. 2. Hypovolemic shock: Lactic acid of 22 on presentation. Patient received 3 L of IV fluid with normal saline. He is currently on levophed 20 g per hour. There is a fourth liter ordered. 3. Acute kidney injury, anuric: We'll continue aggressive IV fluid hydration. Celeste catheter in place for strict urine output measurement 4. History of alcohol abuse. Patient denies any alcohol use on presentation. Alcohol level was negative 5. Significant dehydration 6. Systemic inflammatory response syndrome with no established source of infection This is a 57-year-old male who presented to the emergency room with hypothermia and multiorgan failure. The history is not clear. Apparently he was found at home. It is unclear to me if his house was warm. It is unclear when the patient was last seen normal. No family members at bedside to provide further history. Today, I reviewed his lab work results and medication list. As patient was significantly agitated with the ET tube in place I ordered sedation with IV potassium one time dose and then a drip as well as IV fentanyl when necessary. I started him on a bicarb drip. I ordered repeat ABG that showed slight improvement in his pH. Awaiting recommendation from nephrology regarding possible dialysis as tolerated. Patient will be admitted to the ICU. Tube Closing Machine Operator has been consulted. Central line established. Patient was started on broad-spectrum antibiotic with no established source of infection. Patient's overall prognosis is critical. Time with Patient: Greater than 30
[2018-04-11] MEDS ORDERED: MIDAZOLAM 2 MG/2 ML VIAL IV STA (16:11)
[2018-04-11 16:14] LABS: Calcium 7.3 mg/dL (8.4-10.2); Potassium 3.3 mmol/L (3.5-5.1)
--- NOTE | 2018-04-11 16:52 | P.CNPUL ---
History of Present Illness Consult date: 04/11/18 Requesting physician: Walker Mckeon Reason for consult: other (Acute respiratory failure) Chief complaint: Altered mental status and shortness of breath History of present illness: This is a 57-year-old white male supposedly has history of hypertension, diabetes, liver disease, and previous history of GI bleeding, history of Asencio esophagus, gastritis, alcoholic hepatitis, neuropathy related to diabetes, chronic back pain, gouty arthritis, patient presented to the ER by EMS were in he was found to have altered mental status and confusion. Patient apparently lives by himself, and he was found by his relatives confused, and complaining of shortness of breath asking for more air. Upon arrival to the ER , patient was in extreme respiratory distress, he was hypothermic, temperature was 92.5, tachycardic, blood pressure was 70/40, patient was basically intubated upon arrival to the ER, multiple fluid boluses were given, patient was also started on norepinephrine, presently at 20 mcg/m, patient was given multiple fluid boluses, he was found to have profound severe metabolic acidosis , and acute kidney injury. Celeste catheter was placed and there was no urine output whatsoever. Patient was seen by the ER physician, some of the workup is still pending, I saw the patient in the ER, and I recommended immediate stat nephrology consultation, patient may have a presentation of acute ethylene glycol toxicity. Patient may require hemodialysis, and nephrology will be notified by the ER physician. CT of the brain was unremarkable. Patient is presently on Versed drip, dose was adjusted to 5 mg per hour, he was noted to be agitated, and trying to pull out his endotracheal tube. Initial ABG showed a pO2 of 400 pCO2 of 18 pH of 7.01 follow-up ABG showed a pO2 of 28 pCO2 of 19 pH of 7.11 his initial lactic acid was 15.9. BUN was 54 creatinine 7.80 bicarb was 6. Sodium was 124. Patient was also noted to have leukocytosis with WBC count of 25.6, hemoglobin is 12.5. Chest x-ray was noted to have adequate placement of right central line, no evidence of acute pulmonary process noted. Review of Systems ROS unobtainable: due to endotracheal tube Past Medical History Past Medical History: Diabetes Mellitus, GERD/Reflux, GI Bleed, Hypertension, Liver Disease, Skin Disorder Additional Past Medical History / Comment(s): Barretts esophagus, gastritis, upper GI bleed, ETOH abuse, alcoholic hepatitis, pancytopenia, NIDDM type II, neuropathy bilateral feet, chronic low back pain, bulging disces, gout bilateral knees and ankles, UTI History of Any Multi-Drug Resistant Organisms: None Reported Past Surgical History: Orthopedic Surgery Additional Past Surgical History / Comment(s): EGDs, colonoscopies, R knee arthroscopy Past Anesthesia/Blood Transfusion Reactions: No Reported Reaction Smoking Status: Current every day smoker - Past Family History Father Family Medical History: Cancer, Diabetes Mellitus, Eye Disorder Additional Family Medical History / Comment(s): Father had stomach cancer. He was a diabetic and was blind. He had amputations. Mother Family Medical History: Musculoskeletal Disorder, Neurologic Disorder Additional Family Medical History / Comment(s): Mother is . She had parkinson's and neuropathies. Medications and Allergies Home Medications Medication Instructions Recorded Confirmed Type Omeprazole [PriLOSEC] 20 mg PO AC-BID 01/20/14 04/11/18 History Escitalopram [Lexapro] 20 mg PO BID 04/11/18 04/11/18 History Gabapentin [Neurontin] 200 mg PO TID 04/11/18 04/11/18 History Metoprolol Tartrate [Lopressor] 50 mg PO BID 04/11/18 04/11/18 History Pioglitazone HCl [Actos] 15 mg PO DAILY 04/11/18 04/11/18 History metFORMIN HCL [Glucophage] 1,000 mg PO AC-BID 04/11/18 04/11/18 History Allergies Allergy/AdvReac Type Severity Reaction Status Date / Time codeine AdvReac Nausea & Verified 08/05/15 09:25 Vomiting Physical Exam Vitals: Vital Signs Pulse Resp BP Pulse Ox 04/11/18 16:30 79 20 90/62 04/11/18 16:20 82 21 97/62 04/11/18 16:10 84 20 112/72 04/11/18 16:00 78 23 87/58 100 04/11/18 15:50 78 20 95/61 100 04/11/18 15:40 80 20 97/63 04/11/18 15:30 20 93/60 04/11/18 15:20 75 20 91/57 04/11/18 15:10 77 20 92/55 04/11/18 15:00 73 20 94/60 04/11/18 14:50 73 20 96/64 04/11/18 14:40 20 83/61 04/11/18 14:30 76 20 88/62 04/11/18 14:20 73 20 93/61 04/11/18 14:10 73 20 93/61 04/11/18 14:00 73 22 93/61 04/11/18 13:20 72 20 93/61 04/11/18 13:10 72 20 95/62 04/11/18 13:00 72 20 100/65 04/11/18 12:50 74 20 112/92 04/11/18 12:40 69 20 94/66 04/11/18 12:30 69 20 93/61 04/11/18 12:10 69 14 95/61 04/11/18 12:00 66 14 89/59 04/11/18 11:50 64 14 73/51 04/11/18 11:40 64 14 56/36 04/11/18 11:30 66 15 53/31 04/11/18 11:00 64 21 58/38 97 04/11/18 10:50 66 24 59/41 69 L 04/11/18 10:40 58/40 04/11/18 10:30 64 24 48/31 04/11/18 10:20 63 24 80/65 04/11/18 10:10 62 24 80/65 04/11/18 10:00 60 22 95/77 95 04/11/18 09:50 156/76 Intake and Output 04/11/18 04/11/18 04/11/18 06:59 14:59 22:59 Intake Total 1.875 2.706 Balance 1.875 2.706 Intake: Intake, IV Titration 1.875 2.706 Amount Midazolam HCl 100 mg In 2.706 Sodium Chloride 0.9% 80 ml @ 0.02 MG/KG/HR 1.99 mls/hr IV .Q24H [facility] Rx#: [id number] Norepinephrine 4 mg In 1.875 Sodium Chloride 0.9% 250 ml @ Titrate IV .Q0M [facility] Rx#:[id number] Other: Weight 86.636 kg Physical Exam: Revealed a 57-year-old white male on mechanical ventilation, restless agitated on the ventilator. Hence more Versed was given. Head: Atraumatic, normocephalic. HEENT:[Neck is supple.] [No neck masses.] [No thyromegaly.] [No JVD.] Chest: [Clear throughout, no crackles, no rhonchi, no wheezes.] Cardiac Exam: [Normal S1 and S2, no S3 gallop, no murmur.] Abdomen: [Soft, nontender, no megaly, no rebound, no guarding, normal bowel sounds.] Extremities: [No clubbing, no edema, no cyanosis.] Neurological Exam: Cannot be assessed, patient is agitated, but seems to follow simple instructions. Psychiatric could not be assessed. Skin: No rashes. Warm and dry. No cyanosis. Results - Laboratory Findings CBC and BMP: 04/11/18 10:29 04/11/18 15:37 ABG ABG pH 7.11 (7.35-7.45) L* 04/11/18 14:22 ABG pCO2 19 mmHg (35-45) L* 04/11/18 14:22 ABG pO2 208 mmHg (83-108) H 04/11/18 14:22 ABG O2 Saturation 99.6 % (94-97) H 04/11/18 14:22 PT/INR, D-dimer PT 11.0 sec (9.0-12.0) 04/11/18 10:29 INR 1.1 (<1.2) 04/11/18 10:29 Abnormal lab findings: Abnormal Labs 04/11/18 04/11/18 04/11/18 10:29 10:29 10:29 WBC 25.6 H RBC 4.16 L Hgb 12.5 L Hct 38.8 L Neutrophils # 21.2 H APTT ABG pH ABG pCO2 ABG pO2 ABG HCO3 ABG Total CO2 ABG O2 Saturation Sodium Potassium Chloride Carbon Dioxide BUN Creatinine Glucose POC Glucose (mg/dL) Plasma Lactic Acid Marvin 22.5 H* Calcium Ammonia 71 H Creatine Kinase Total Creatine Kinase 50 L Total Protein 04/11/18 04/11/18 04/11/18 10:29 10:29 11:55 WBC RBC Hgb Hct Neutrophils # APTT 33.0 H ABG pH 7.01 L* ABG pCO2 18 L* ABG pO2 >400 H ABG HCO3 5 L* ABG Total CO2 5 L ABG O2 Saturation 100.0 H Sodium 120 L Potassium 3.4 L Chloride 72 L* Carbon Dioxide <5 L* BUN 56 H Creatinine 9.37 H* Glucose 222 H POC Glucose (mg/dL) Plasma Lactic Acid Marvin Calcium Ammonia Creatine Kinase Total Creatine Kinase Total Protein 6.2 L 04/11/18 04/11/18 04/11/18 12:42 14:22 14:27 WBC RBC Hgb Hct Neutrophils # APTT ABG pH 7.11 L* ABG pCO2 19 L* ABG pO2 208 H ABG HCO3 6 L* ABG Total CO2 7 L ABG O2 Saturation 99.6 H Sodium Potassium Chloride Carbon Dioxide BUN Creatinine Glucose POC Glucose (mg/dL) 250 H Plasma Lactic Acid Marvin 15.9 H* Calcium Ammonia Creatine Kinase Total Creatine Kinase Total Protein 04/11/18 15:37 WBC RBC Hgb Hct Neutrophils # APTT ABG pH ABG pCO2 ABG pO2 ABG HCO3 ABG Total CO2 ABG O2 Saturation Sodium 124 L Potassium 3.3 L Chloride 83 L Carbon Dioxide 6 L* BUN 54 H Creatinine 7.80 H* Glucose 214 H POC Glucose (mg/dL) Plasma Lactic Acid Marvin Calcium 7.3 L Ammonia Creatine Kinase 351 H Total Creatine Kinase Total Protein - Diagnostic Findings Chest x-ray: image reviewed Assessment and Plan Assessment: Impression: 1 acute respiratory failure, not hypoxic and not hypercapnic in nature however it is mostly related to severe profound metabolic acidosis. Considering the presentation and considering the patient has known history of alcoholism with negative alcohol level in the blood, I'm strongly suspecting that we may be dealing with acute acid and glycol toxicity. Hence I recommended a stat immediate consultation with nephrology, patient may require immediate hemodialysis. If not the patient could be placed on fomipazole, in the meantime I recommended continuation of sodium bicarb, continue mechanical ventilation, ordered serum osmolality, urine and check for calcium oxalate crystals, apparently no urine output when the Celeste catheter was placed, 2 acute septic shock is not entirely ruled out, but felt to be less likely. 3 severe acute lactic acidosis 4 acute kidney injury and renal failure. 5 history of alcoholism. 6 hypothermia on presentation, being addressed accordingly. Recommendation: Continue present supportive care measures, again I recommended immediate stat nephrology consultation, in the meantime we'll continue antibiotics empirically, will add serum cortisol and possibly start the patient on hydrocortisone continue pressors, continue IV fluids, will follow closely. Patient is critically ill, and I evaluated the patient in the ER. Discussed his condition with the ER physician on the case. Time with Patient: Greater than 30
[2018-04-11 17:48] LABS: T4, Free (Free Thyroxine) 1.69 ng/dL (0.78-2.19)
[2018-04-11 19:04] LABS: Glucose,Whole Blood 229 mg/dL (75-99)
[2018-04-11] MEDS: IPRATROPIUM-ALBUTEROL 3 ML NEB INHALATION SCH ×2 (19:23→20:35)
[2018-04-11 19:55] LABS: ABG Base Excess -19.7 mmol/L; ABG Oxygen Saturation 99.3 % (94-97); ABG PCO2 20 mmHg (35-45); ABG PH 7.21 (7.35-7.45); ABG PO2 145 mmHg (83-108); ABG TCO2 9 mmol/L (19-24)
[2018-04-11 19:57] LABS: ABG HCO3 8 mmol/L (21-25)
[2018-04-11] MEDS: SODIUM CHLORIDE 0.9% 1,000 ML IV SCH ×2 (20:16→20:26)
[2018-04-11 20:24] LABS: Glucose,Whole Blood 228 mg/dL (75-99)
[2018-04-11] MEDS: LACTATED RINGERS 500 ML IV SCH ×2 (20:27→20:28)
[2018-04-11] MEDS: PIPERACILLIN-TAZOBACTAM 3.375 GM in SODIUM CHLORIDE 0.9% 100 ML IVPB SCH (20:31)
[2018-04-11] MEDS ORDERED: SODIUM BICARB 8.4% 50 ML SYR (1 MEQ/ML) IV STA (20:41)
[2018-04-11] MEDS: INSULIN ASPART 100 UNIT/ML 1 ML 10 ML VIAL SQ SCH ×2 (20:57→22:33)
[2018-04-11] MEDS: HYDROCORTISONE SUCCINATE 100 MG/2 ML VIAL IV SCH (20:59)
[2018-04-11] MEDS ORDERED: fentaNYL (PF) 2,500 MCG in SODIUM CHLORIDE 0.9% 200 ML IV SCH (21:00)
[2018-04-11] MEDS: PROPOFOL 1,000 MG in EMPTY BAG 1 BAG IV SCH (21:04)
--- NOTE | 2018-04-11 21:46 | CONS ---
CONSULTATION REASON FOR CONSULT: Renal failure and acidosis. HISTORY OF PRESENT ILLNESS: Patient is a 57-year-old male who has a previous history of alcohol abuse. He was admitted to the hospital. He also has a history of hypertension, type 2 diabetes. When patient initially came in, he was in respiratory distress. He was hypothermic with a temperature of 92.5 degrees Fahrenheit, he was also hypotensive. The patient was intubated and he was started on Levophed which was up to about 20 mcg. LABS: Revealed a serum creatinine of 9.3 mg/dL. CO2 of less than 5 and serum sodium of 120. The alcohol level was less than 10. Blood sugar was not significantly elevated. The patient has been started on bicarb drip and toxicology for alcohol poisoning, currently pending. Plasma lactic acid was elevated at 22.5 and it is down to 9.9 now. There is concern for possible ingestion of ethylene glycol. Patient's anion gap was as high as 35. The vascular surgery has been consulted and patient will be dialyzed tonight. PAST MEDICAL HISTORY: Obtained from chart review, significant for type 2 diabetes, gastroesophageal reflux disease, hypertension, chronic liver disease, history of Asencio's esophagus, chronic back pain. Osteoarthritis. PAST SURGICAL HISTORY: EGD, colonoscopy, knee arthroscopy. SOCIAL HISTORY: Positive for alcohol abuse and the patient is a smoker. MEDICATIONS: Medications at home prior to admission include Prilosec, Lexapro, Neurontin, Lopressor, Actos, Glucophage. ALLERGIES: INCLUDE CODEINE WHICH CAUSES NAUSEA AND VOMITING. REVIEW OF SYSTEMS: As per HPI. Other systems negative. There was no ongoing bleeding noted. No fever is noted. EXAMINATION: Patient is currently sedated. He is on the vent. Blood pressure was 94/60, heart rate 83 per minute, temperature is up to 95.7. Examination of the heart S1, S2. Examination of the lungs bilateral breath sounds are heard. Abdomen is soft, nontender. Examination of lower extremities shows no evidence of edema. CAMP COOK exam cannot be performed. LABORATORY DATA: Labs show sodium 124, potassium 3.3, chloride 83, CO2 was 6, creatinine 7.8, and lactic acid was down to 9.9. Cortisol more than 123, TSH 0.369, CK 351. Alcohol level less than 10. A uric acid of 6.8. ASSESSMENT: 1. Acute kidney injury, acute tubular necrosis, currently oliguric with evidence of uremia and mental status changes, we will proceed with hemodialysis given the severe acidosis. 2. Metabolic acidosis and anion gap multifactorial secondary to lactic acidosis, which could be also related to Glucophage and secondary to hypotension and hypoperfusion. Need to rule out other alcohol poisoning. The toxicology screen is currently pending. We will proceed with dialysis. Continue with bicarb drip. 3. Hypokalemia, which is unexpected given the severe acidosis and the advanced renal failure. Need to rule out hypomagnesemia as patient has history of EtOH abuse as well as the fact that he has been on proton pump inhibitors. 4. Mental status changes, multifactorial. Expect improvement with improvement in metabolic derangements. 5. Hyponatremia, which is mainly hypovolemic. Expect improvement with the saline resuscitation and dialysis. 6. Lactic acidosis secondary to the hypotension hypoperfusion as well as metformin. PLAN: Aggressive IV hydration, hemodialysis tonight. Await toxicology screen. Check magnesium levels. Continue with the bicarb drip for now and repeat labs in a.m. Avoid nephrotoxic agents. Thank you for this consultation. We will continue to follow the patient with you during his hospitalization. MMODL / IJN: [id number] /
[2018-04-11] MEDS: CHLORHEXIDINE GLUCONATE 15 ML CUP MUCOUS MEM SCH (21:48)
[2018-04-11 22:00] LABS: Glucose,Whole Blood 268 mg/dL (75-99)
[2018-04-11 23:24] LABS: Glucose,Whole Blood 204 mg/dL (75-99)
[2018-04-12 00:02] LABS: Glucose,Whole Blood 147 mg/dL (75-99)
[2018-04-12] MEDS: DEXTROSE 5% IN WATER 1,000 ML with SODIUM BICARB (1 MEQ/ML) 100 ML IV SCH ×2 (02:17→09:43)
[2018-04-12] MEDS: NOREPINEPHRINE 16 MG in SODIUM CHLORIDE 0.9% 250 ML IV SCH ×2 (02:17→12:00)
[2018-04-12] MEDS: HYDROCORTISONE SUCCINATE 100 MG/2 ML VIAL IV SCH ×3 (02:25→20:19)
[2018-04-12 02:43] LABS: Hemoglobin A1C 6.9 % (4.0-6.0)
[2018-04-12 03:34] LABS: MCH 30.8 pg (25.0-35.0)
[2018-04-12 03:45] LABS: HCT 32.7 % (39.0-53.0); HGB 11.7 gm/dL (13.0-17.5); MCHC 35.7 g/dL (31.0-37.0); Mean Platelet Volume 6.5; Platelet Count 325 k/uL (150-450); RBC 3.79 m/uL (4.30-5.90); RDW 13.1 % (11.5-15.5); WBC 34.1 k/uL (3.8-10.6)
[2018-04-12 03:47] LABS: MCV 86.2 fL (80.0-100.0)
[2018-04-12 03:56] LABS: Albumin 2.8 g/dL (3.5-5.0); Calcium 7.2 mg/dL (8.4-10.2); Magnesium 1.5 mg/dL (1.6-2.3); Phosphorus 3.8 mg/dL (2.5-4.5); Total Bilirubin 0.5 mg/dL (0.2-1.3)
[2018-04-12 04:19] LABS: Potassium 2.6 mmol/L (3.5-5.1)
[2018-04-12 04:30] LABS: Lymphocytes # (M) 2.39 k/uL (1.0-4.8); Monocytes # (M) 0.34 k/uL (0-1.0); Neutrophils # (M) 31.37 k/uL (1.3-7.7); Neutrophils % (M) 92 %; Nucleated Red Blood Cells 0 /100 WBC (0-0); Total Cells Counted 100
[2018-04-12] MEDS: POTASSIUM CHLORIDE 20 MEQ in WATER FOR INJECTION 1 100ML.BAG IVPB SCH ×4 (04:51→16:52)
[2018-04-12 07:05] LABS: ABG HCO3 22 mmol/L (21-25); ABG Oxygen Saturation 98.9 % (94-97); ABG PCO2 33 mmHg (35-45); ABG PH 7.44 (7.35-7.45); ABG PO2 124 mmHg (83-108); ABG TCO2 23 mmol/L (19-24)
[2018-04-12] MEDS: IPRATROPIUM-ALBUTEROL 3 ML NEB INHALATION SCH ×4 (07:08→20:47)
[2018-04-12] MEDS: INSULIN ASPART 100 UNIT/ML 1 ML 10 ML VIAL SQ SCH ×3 (07:08→20:21)
[2018-04-12 07:10] LABS: Glucose,Whole Blood 119 mg/dL (75-99)
--- NOTE | 2018-04-12 07:27 | XR ---
EXAMINATION TYPE: XR chest 1V DATE OF EXAM: 04/12/2018 CLINICAL HISTORY: Difficulty breathing progress study. TECHNIQUE: Single AP portable upright view of the chest is obtained. COMPARISON: Chest x-ray from one day earlier. FINDINGS: An endotracheal tube, orogastric tube, and right internal jugular central venous catheter are stable in appearance. Lungs remain clear without pneumothorax seen bilaterally. Suspect small to tiny left pleural effusion. Cardiac silhouette size is stable and upper limits of normal. Osseous str uctures are intact. IMPRESSION: Small to tiny left pleural effusion is suspected.
[2018-04-12 07:29] LABS: Ethylene Glycol Negative (Negative)
[2018-04-12] MEDS: ENOXAPARIN 30 MG/0.3 ML SYRINGE SQ SCH (08:10)
[2018-04-12] MEDS: PIPERACILLIN-TAZOBACTAM 3.375 GM in SODIUM CHLORIDE 0.9% 100 ML IVPB SCH ×2 (08:14→20:20)
[2018-04-12] MEDS: CHLORHEXIDINE GLUCONATE 15 ML CUP MUCOUS MEM SCH ×2 (08:14→20:20)
[2018-04-12] MEDS: PANTOPRAZOLE 40 MG/10 ML VIAL IV SCH (08:15)
[2018-04-12] MEDS: PROPOFOL 1,000 MG in EMPTY BAG 1 BAG IV SCH ×3 (08:15→19:47)
[2018-04-12 09:03] LABS: Ethanol Negative (Negative); Isopropanol Negative (Negative)
--- NOTE | 2018-04-12 09:59 | CONS ---
DATE OF CONSULTATION: 04/12/2018 This is a 57 -year-old gentleman. I was called in the emergency room for urgent placement of dialysis catheter. The patient has acute kidney failure and acute metabolic acidosis. The patient has been intubated. The patient had a stroke workup. CT scan of the brain was negative. MEDICAL HISTORY: Diabetes mellitus, hypertension, and liver disease. PHYSICAL EXAMINATION: Patient is seen in the room. Patient has been intubated. NECK: Supple. The patient has a bilateral of the lung bases. ABDOMEN: Soft, nontender. VASCULAR: Brachial, radial femoral pulses are present. PLAN: Placement of urgent dialysis catheter. Risks and complications discussed. Thank you for this consultation. MMODL / IJN: [id number] / EMMA
--- NOTE | 2018-04-12 10:08 | PCN ---
PROCEDURE NOTE PREOP DIAGNOSIS: Acute on chronic renal failure. PROCEDURE PERFORMED: Placement of dialysis catheter, right femoral approach. DESCRIPTION OF PROCEDURE: The patient was seen in the emergency room. Right groin was prepped and drapes applied in a sterile manner. 1% lidocaine infiltrated into the right groin area. Micropuncture introduced into the right common femoral vein. Micropuncture guidewire was passed and 4 Georgian dilator advanced on the top of the guidewire. After that, we passed a regular guidewire and then we placed the dilator and then placed a 15 cm dialysis catheter on top of the guidewire. The guidewire was removed, flushed with heparin saline and secured with 3-0 nylon. Hep-Lock was placed and dressing applied. Patient tolerated the procedure well. MMISRAL / VIRGENN: [id number] /
[2018-04-12 11:20] LABS: Hepatitis B Surface AB- Quant 3.5 mIU/mL
[2018-04-12 11:53] LABS: Glucose,Whole Blood 243 mg/dL (75-99)
[2018-04-12] MEDS ORDERED: INSULIN ASPART 100 UNIT/ML 1 ML 10 ML VIAL SQ SCH (12:00)
[2018-04-12 12:28] LABS: Amphetamine Screen,Urine Not Detected (NotDetected); Barbiturate Screen,Urine Not Detected (NotDetected); Benzodiazepines Screen,Urine Not Detected (NotDetected); Cocaine Screen,Urine Not Detected (NotDetected); Methadone Screen, Urine Not Detected (NotDetected); Opiate Screen,Urine Not Detected (NotDetected); Oxycodone Screen, Urine Not Detected (NotDetected); Phencyclidine Screen,Urine Not Detected (NotDetected); Tricyclic Antidepressant,Urine Not Detected (NotDetected); Urn Cannabinoid Scrn Not Detected (NotDetected)
--- NOTE | 2018-04-12 12:35 | P.PN ---
Subjective Progress Note Date: 04/12/18 Principal diagnosis: Acute respiratory failure not hypoxic and not hypercapnic, however it secondary to severe and profound metabolic acidosis, exact etiology is unclear at this point. This is a 57-year-old white male supposedly has history of hypertension, diabetes, liver disease, and previous history of GI bleeding, history of Asencio esophagus, gastritis, alcoholic hepatitis, neuropathy related to diabetes, chronic back pain, gouty arthritis, patient presented to the ER by EMS were in he was found to have altered mental status and confusion. Patient apparently lives by himself, and he was found by his relatives confused, and complaining of shortness of breath asking for more air. Upon arrival to the ER , patient was in extreme respiratory distress, he was hypothermic, temperature was 92.5, tachycardic, blood pressure was 70/40, patient was basically intubated upon arrival to the ER, multiple fluid boluses were given, patient was also started on norepinephrine, presently at 20 mcg/m, patient was given multiple fluid boluses, he was found to have profound severe metabolic acidosis , and acute kidney injury. Celeste catheter was placed and there was no urine output whatsoever. Patient was seen by the ER physician, some of the workup is still pending, I saw the patient in the ER, and I recommended immediate stat nephrology consultation, patient may have a presentation of acute ethylene glycol toxicity. Patient may require hemodialysis, and nephrology will be notified by the ER physician. CT of the brain was unremarkable. Patient is presently on Versed drip, dose was adjusted to 5 mg per hour, he was noted to be agitated, and trying to pull out his endotracheal tube. Initial ABG showed a pO2 of 400 pCO2 of 18 pH of 7.01 follow-up ABG showed a pO2 of 28 pCO2 of 19 pH of 7.11 his initial lactic acid was 15.9. BUN was 54 creatinine 7.80 bicarb was 6. Sodium was 124. Patient was also noted to have leukocytosis with WBC count of 25.6, hemoglobin is 12.5. Chest x-ray was noted to have adequate placement of right central line, no evidence of acute pulmonary process noted. Patient was reevaluated today on 04/12/2018, remains on mechanical ventilation, his tidal volume is 500 assist control rate is 20 PEEP is 5 and FiO2 is 40%. His drips include norepinephrine at 19 mcg/m, propofol at 20 mcg/kg/m, and fentanyl at 25 g per hour. He is also on a sodium bicarb drip which I cut down today because of improvement in his metabolic acidosis. Patient underwent hemodialysis yesterday, and he may be hemodialyzed again depending on the welding pantograph operator recommendation. Patient is arousable, opens eyes, but does not seem to follow instructions. ABG today showed a pO2 of 124 pCO2 of 33 pH of 7.44. His electrolytes were reviewed potassium is low being corrected as per protocol. Sodium is up to 128. WBC count is 34.1 hemoglobin is 11.7. Cultures remain nondiagnostic at this point. Patient is empirically on antibiotics. Family is at bedside, and the information I was able to get from the family that the patient is a heavy alcoholic, and he drinks most of the time throughout the whole day. However on this admission the patient had a negative alcohol level in his system. Objective - Vital Signs Vital signs: Vital Signs Temp 98.0 F 04/12/18 12:00 Pulse 68 04/12/18 12:00 Resp 20 04/12/18 12:00 BP 103/62 04/12/18 12:00 Pulse Ox 99 04/12/18 12:00 Intake & Output 04/11/18 04/12/18 04/12/18 18:59 06:59 18:59 Intake Total 188.239 9387.763 862.214 Output Total 27 5 Balance 504.339 8202.763 857.214 Weight 86.636 kg 91.7 kg 91.7 kg Intake: IV 4460 625 Dextrose 5% in Water 1, 1660 525 000 ml @ 75 mls/hr IV . [id number] GREG with Sodium Bicarb (1 Meq/ml) 100 ml Rx#:[id number] Piperacillin-Tazobactam 3 100 100 .375 gm In Sodium Chloride 0.9% 100 ml @ 25 mls/hr IVPB ONCE STA Rx# :[id number] Potassium Chloride 20 meq 200 In Water For Injection 1 100ml.bag @ 50 mls/hr IVPB Q2H GREG Rx#: [id number] Sodium Chloride 0.9% 1, 2000 000 ml @ 999 mls/hr IV . Q1H1M ONE Rx#:[id number] Vancomycin 1,750 mg In 500 Sodium Chloride 0.9% 500 ml 500 ml @ 167 mls/hr IVPB ONCE STA Rx#: [id number] Intake, IV Titration 512.411 3811.763 237.214 Amount Dextrose 5% in Water 1, 80 000 ml @ 75 mls/hr IV . [id number] GREG with Sodium Bicarb (1 Meq/ml) 100 ml Rx#:[id number] Midazolam HCl 100 mg In 9.927 Sodium Chloride 0.9% 80 ml @ 0.02 MG/KG/HR 1.99 mls/hr IV .Q24H GREG Rx#: [id number] Norepinephrine 16 mg In 50.938 124.122 Sodium Chloride 0.9% 250 ml @ Titrate IV .Q0M GREG Rx#:[id number] Norepinephrine 4 mg In 250.000 Sodium Chloride 0.9% 250 ml @ Titrate IV .Q0M ONE Rx#:[id number] Propofol 1,000 mg In 10.742 113.092 Empty Bag 1 bag @ Titrate IV .Q0M GREG Rx#: [id number] Sodium Chloride 0.9% 1, 1000 000 ml @ 999 mls/hr IV . Q1H1M GREG Rx#:[id number] Sodium Chloride 0.9% 1, 100 000 ml @ 999 mls/hr IV . Q1H1M STA Rx#:[id number] Vancomycin 1,750 mg In 500 Sodium Chloride 0.9% 500 ml 500 ml @ 167 mls/hr IVPB ONCE STA Rx#: [id number] fentaNYL (PF) 2,500 mcg 0.083 In Sodium Chloride 0.9% 200 ml @ 100 MCG/HR 10 mls/hr IV .Q24H GREG Rx#: [id number] Output: Urine 27 5 Other: Voiding Method Indwelling Catheter Indwelling Catheter - Exam Physical Exam: Revealed a 57-year-old white male on mechanical ventilation, calm however he is on propofol and he is on fentanyl drip. Head: Atraumatic, normocephalic. HEENT:[Neck is supple.] [No neck masses.] [No thyromegaly.] [No JVD.] Chest: [Clear throughout, no crackles, no rhonchi, no wheezes.] Cardiac Exam: [Normal S1 and S2, no S3 gallop, no murmur.] Abdomen: [Soft, nontender, no megaly, no rebound, no guarding, normal bowel sounds.] Extremities: [No clubbing, no edema, no cyanosis.] Neurological Exam: Opens eyes, but does not follow any instructions. Psychiatric could not be assessed. Skin: No rashes. Warm and dry. No cyanosis. - Labs CBC & Chem 7: 04/12/18 03:18 04/12/18 03:18 Labs: Abnormal Lab Results - Last 24 Hours (Table) 04/11/18 04/11/18 04/11/18 Range/Units 10:29 12:42 14:22 WBC (3.8-10.6) k/uL RBC (4.30-5.90) m/uL Hgb (13.0-17.5) gm/dL Hct (39.0-53.0) % Neutrophils # (Manual) (1.3-7.7) k/uL ABG pH 7.11 L* (7.35-7.45) ABG pCO2 19 L* (35-45) mmHg ABG pO2 208 H (83-108) mmHg ABG HCO3 6 L* (21-25) mmol/L ABG Total CO2 7 L (19-24) mmol/L ABG O2 Saturation 99.6 H (94-97) % Sodium (137-145) mmol/L Potassium (3.5-5.1) mmol/L Chloride (98-107) mmol/L Carbon Dioxide (22-30) mmol/L BUN (9-20) mg/dL Creatinine (0.66-1.25) mg/dL Glucose (74-99) mg/dL POC Glucose (mg/dL) 250 H (75-99) mg/dL Hemoglobin A1c 6.9 H (4.0-6.0) % Plasma Lactic Acid Marvin (0.7-2.0) mmol/L Calcium (8.4-10.2) mg/dL Magnesium (1.6-2.3) mg/dL Creatine Kinase (55-170) U/L Total Protein (6.3-8.2) g/dL Albumin (3.5-5.0) g/dL TSH (0.465-4.680) mIU/L 04/11/18 04/11/18 04/11/18 Range/Units 14:27 15:37 15:37 WBC (3.8-10.6) k/uL RBC (4.30-5.90) m/uL Hgb (13.0-17.5) gm/dL Hct (39.0-53.0) % Neutrophils # (Manual) (1.3-7.7) k/uL ABG pH (7.35-7.45) ABG pCO2 (35-45) mmHg ABG pO2 (83-108) mmHg ABG HCO3 (21-25) mmol/L ABG Total CO2 (19-24) mmol/L ABG O2 Saturation (94-97) % Sodium 124 L (137-145) mmol/L Potassium 3.3 L (3.5-5.1) mmol/L Chloride 83 L (98-107) mmol/L Carbon Dioxide 6 L* (22-30) mmol/L BUN 54 H (9-20) mg/dL Creatinine 7.80 H* (0.66-1.25) mg/dL Glucose 214 H (74-99) mg/dL POC Glucose (mg/dL) (75-99) mg/dL Hemoglobin A1c (4.0-6.0) % Plasma Lactic Acid Marvin 15.9 H* (0.7-2.0) mmol/L Calcium 7.3 L (8.4-10.2) mg/dL Magnesium (1.6-2.3) mg/dL Creatine Kinase 351 H (55-170) U/L Total Protein (6.3-8.2) g/dL Albumin (3.5-5.0) g/dL TSH 0.369 L (0.465-4.680) mIU/L 04/11/18 04/11/18 04/11/18 Range/Units 18:44 19:15 19:50 WBC (3.8-10.6) k/uL RBC (4.30-5.90) m/uL Hgb (13.0-17.5) gm/dL Hct (39.0-53.0) % Neutrophils # (Manual) (1.3-7.7) k/uL ABG pH 7.21 L (7.35-7.45) ABG pCO2 20 L (35-45) mmHg ABG pO2 145 H (83-108) mmHg ABG HCO3 8 L* (21-25) mmol/L ABG Total CO2 9 L (19-24) mmol/L ABG O2 Saturation 99.3 H (94-97) % Sodium (137-145) mmol/L Potassium (3.5-5.1) mmol/L Chloride (98-107) mmol/L Carbon Dioxide (22-30) mmol/L BUN (9-20) mg/dL Creatinine (0.66-1.25) mg/dL Glucose (74-99) mg/dL POC Glucose (mg/dL) 229 H (75-99) mg/dL Hemoglobin A1c (4.0-6.0) % Plasma Lactic Acid Marvin 9.9 H* (0.7-2.0) mmol/L Calcium (8.4-10.2) mg/dL Magnesium (1.6-2.3) mg/dL Creatine Kinase (55-170) U/L Total Protein (6.3-8.2) g/dL Albumin (3.5-5.0) g/dL TSH (0.465-4.680) mIU/L 04/11/18 04/11/18 04/11/18 Range/Units 20:11 21:56 22:16 WBC (3.8-10.6) k/uL RBC (4.30-5.90) m/uL Hgb (13.0-17.5) gm/dL Hct (39.0-53.0) % Neutrophils # (Manual) (1.3-7.7) k/uL ABG pH (7.35-7.45) ABG pCO2 (35-45) mmHg ABG pO2 (83-108) mmHg ABG HCO3 (21-25) mmol/L ABG Total CO2 (19-24) mmol/L ABG O2 Saturation (94-97) % Sodium (137-145) mmol/L Potassium (3.5-5.1) mmol/L Chloride (98-107) mmol/L Carbon Dioxide (22-30) mmol/L BUN (9-20) mg/dL Creatinine (0.66-1.25) mg/dL Glucose (74-99) mg/dL POC Glucose (mg/dL) 228 H 268 H (75-99) mg/dL Hemoglobin A1c (4.0-6.0) % Plasma Lactic Acid Marvni 6.9 H* (0.7-2.0) mmol/L Calcium (8.4-10.2) mg/dL Magnesium (1.6-2.3) mg/dL Creatine Kinase (55-170) U/L Total Protein (6.3-8.2) g/dL Albumin (3.5-5.0) g/dL TSH (0.465-4.680) mIU/L 04/11/18 04/11/18 04/12/18 Range/Units 22:59 23:59 03:18 WBC 34.1 H (3.8-10.6) k/uL RBC 3.79 L (4.30-5.90) m/uL Hgb 11.7 L (13.0-17.5) gm/dL Hct 32.7 L (39.0-53.0) % Neutrophils # (Manual) 31.37 H (1.3-7.7) k/uL ABG pH (7.35-7.45) ABG pCO2 (35-45) mmHg ABG pO2 (83-108) mmHg ABG HCO3 (21-25) mmol/L ABG Total CO2 (19-24) mmol/L ABG O2 Saturation (94-97) % Sodium (137-145) mmol/L Potassium (3.5-5.1) mmol/L Chloride (98-107) mmol/L Carbon Dioxide (22-30) mmol/L BUN (9-20) mg/dL Creatinine (0.66-1.25) mg/dL Glucose (74-99) mg/dL POC Glucose (mg/dL) 204 H 147 H (75-99) mg/dL Hemoglobin A1c (4.0-6.0) % Plasma Lactic Acid Marvin (0.7-2.0) mmol/L Calcium (8.4-10.2) mg/dL Magnesium (1.6-2.3) mg/dL Creatine Kinase (55-170) U/L Total Protein (6.3-8.2) g/dL Albumin (3.5-5.0) g/dL TSH (0.465-4.680) mIU/L 04/12/18 04/12/18 04/12/18 Range/Units 03:18 06:59 07:07 WBC (3.8-10.6) k/uL RBC (4.30-5.90) m/uL Hgb (13.0-17.5) gm/dL Hct (39.0-53.0) % Neutrophils # (Manual) (1.3-7.7) k/uL ABG pH (7.35-7.45) ABG pCO2 33 L (35-45) mmHg ABG pO2 124 H (83-108) mmHg ABG HCO3 (21-25) mmol/L ABG Total CO2 (19-24) mmol/L ABG O2 Saturation 98.9 H (94-97) % Sodium 128 L (137-145) mmol/L Potassium 2.6 L* (3.5-5.1) mmol/L Chloride 93 L (98-107) mmol/L Carbon Dioxide 17 L (22-30) mmol/L BUN 34 H (9-20) mg/dL Creatinine 5.31 H (0.66-1.25) mg/dL Glucose (74-99) mg/dL POC Glucose (mg/dL) 119 H (75-99) mg/dL Hemoglobin A1c (4.0-6.0) % Plasma Lactic Acid Marvin (0.7-2.0) mmol/L Calcium 7.2 L (8.4-10.2) mg/dL Magnesium 1.5 L (1.6-2.3) mg/dL Creatine Kinase (55-170) U/L Total Protein 5.0 L (6.3-8.2) g/dL Albumin 2.8 L (3.5-5.0) g/dL TSH (0.465-4.680) mIU/L 04/12/18 Range/Units 11:39 WBC (3.8-10.6) k/uL RBC (4.30-5.90) m/uL Hgb (13.0-17.5) gm/dL Hct (39.0-53.0) % Neutrophils # (Manual) (1.3-7.7) k/uL ABG pH (7.35-7.45) ABG pCO2 (35-45) mmHg ABG pO2 (83-108) mmHg ABG HCO3 (21-25) mmol/L ABG Total CO2 (19-24) mmol/L ABG O2 Saturation (94-97) % Sodium (137-145) mmol/L Potassium (3.5-5.1) mmol/L Chloride (98-107) mmol/L Carbon Dioxide (22-30) mmol/L BUN (9-20) mg/dL Creatinine (0.66-1.25) mg/dL Glucose (74-99) mg/dL POC Glucose (mg/dL) 243 H (75-99) mg/dL Hemoglobin A1c (4.0-6.0) % Plasma Lactic Acid Marvin (0.7-2.0) mmol/L Calcium (8.4-10.2) mg/dL Magnesium (1.6-2.3) mg/dL Creatine Kinase (55-170) U/L Total Protein (6.3-8.2) g/dL Albumin (3.5-5.0) g/dL TSH (0.465-4.680) mIU/L Microbiology - Last 24 Hours (Table) 04/11/18 22:42 Urine Culture - Preliminary Urine,Voided 04/12/18 00:48 Sputum Culture - Preliminary Sputum Assessment and Plan Assessment: Impression: 1 acute respiratory failure, not hypoxic and not hypercapnic in nature however it is mostly related to severe profound metabolic acidosis. Considering the presentation and considering the patient has known history of alcoholism with negative alcohol level in the blood, I'm strongly suspecting that we may be dealing with acute ethylene glycol toxicity. Hence I recommended a stat immediate consultation with nephrology, patient may require immediate hemodialysis. Patient was dialyzed yesterday, and his numbers are looking a lot better, however the major concern is whether his renal functioning will improve and his kidneys will function again. Apparently the patient used to be on metformin, clearly that metabolic acidosis could be metformin related. Family is not aware of any history of him drinking any windshield fluid, but according to them it would not surprise him if he does. Again no previous history of such thing. 2 acute septic shock is not entirely ruled out, but felt to be less likely. Continue empiric antibiotics until all the cultures become available and negative. 3 severe acute lactic acidosis, again it could be related to a combination of things including metformin, seizures, sepsis, and of course I'm still concerned about the possibility of ethylene glycol toxicity. 4 acute kidney injury and renal failure. 5 history of alcoholism. 6 hypothermia on presentation, being addressed accordingly. Cortisol level was normal hence I will go ahead and cut down on his Solu-Cortef. Recommendation: Continue present supportive care measures, continue ventilatory support, hemodynamic support, nutritional support, renal support and dialysis, close monitoring of his renal status, continue GI and DVT prophylaxis, discussed his condition with a lot of family members available at bedside. All their questions were answered to their satisfaction, and they would likely addressed the same questions with the welding pantograph operator who is supposed to be seeing the patient today. We'll continue to follow. Critical care time is 40 minutes. Time with Patient: Greater than 30
[2018-04-12 12:36] LABS: Amorphous Sediment,Urine Rare /hpf; Appearance,Urine Cloudy (Clear); Bilirubin,Urine Negative (Negative); Blood,Urine Moderate (Negative); Color,Urine Yellow; Glucose,Urine (UA) Negative (Negative); Ketones,Urine Negative (Negative); Leukocyte Esterase,Urine Large (Negative); Nitrite,Urine Negative (Negative); PH, Urine 5.5 (5.0-8.0); Protein,Urine 1+ (Negative); RBC,Urine 139 /hpf (0-5); Specific Gravity,Urine 1.008 (1.001-1.035); Squamous Epithelial Cell,Urine <1 /hpf (0-4); Urobilinogen,Urine <2.0 mg/dL (<2.0); WBC,Urine 51 /hpf (0-5)
--- NOTE | 2018-04-12 13:03 | P.PN ---
Subjective Progress Note Date: 04/12/18 Seen and examined for the follow-up of acute kidney injury. Admitted with elevated creatinine severe metabolic acidosis and oliguria. He was also hypotensive started on levofloxacin drip yesterday. He had dialysis yesterday and still oliguric. Still on bicarb drip. Objective - Vital Signs Vital signs: Vital Signs Temp 98.0 F 04/12/18 12:00 Pulse 68 04/12/18 12:00 Resp 20 04/12/18 12:00 BP 103/62 04/12/18 12:00 Pulse Ox 99 04/12/18 12:00 Intake & Output 04/11/18 04/12/18 04/12/18 18:59 06:59 18:59 Intake Total 048.837 3913.763 862.214 Output Total 27 5 Balance 602.571 4835.763 857.214 Weight 86.636 kg 91.7 kg 91.7 kg Intake: IV 4460 625 Dextrose 5% in Water 1, 1660 525 000 ml @ 75 mls/hr IV . [id number] GREG with Sodium Bicarb (1 Meq/ml) 100 ml Rx#:[id number] Piperacillin-Tazobactam 3 100 100 .375 gm In Sodium Chloride 0.9% 100 ml @ 25 mls/hr IVPB ONCE STA Rx# :[id number] Potassium Chloride 20 meq 200 In Water For Injection 1 100ml.bag @ 50 mls/hr IVPB Q2H GREG Rx#: [id number] Sodium Chloride 0.9% 1, 2000 000 ml @ 999 mls/hr IV . Q1H1M ONE Rx#:[id number] Vancomycin 1,750 mg In 500 Sodium Chloride 0.9% 500 ml 500 ml @ 167 mls/hr IVPB ONCE STA Rx#: [id number] Intake, IV Titration 279.928 4557.763 237.214 Amount Dextrose 5% in Water 1, 80 000 ml @ 75 mls/hr IV . [id number] GREG with Sodium Bicarb (1 Meq/ml) 100 ml Rx#:[id number] Midazolam HCl 100 mg In 9.927 Sodium Chloride 0.9% 80 ml @ 0.02 MG/KG/HR 1.99 mls/hr IV .Q24H GREG Rx#: [id number] Norepinephrine 16 mg In 50.938 124.122 Sodium Chloride 0.9% 250 ml @ Titrate IV .Q0M GREG Rx#:[id number] Norepinephrine 4 mg In 250.000 Sodium Chloride 0.9% 250 ml @ Titrate IV .Q0M ONE Rx#:[id number] Propofol 1,000 mg In 10.742 113.092 Empty Bag 1 bag @ Titrate IV .Q0M GREG Rx#: [id number] Sodium Chloride 0.9% 1, 1000 000 ml @ 999 mls/hr IV . Q1H1M GREG Rx#:[id number] Sodium Chloride 0.9% 1, 100 000 ml @ 999 mls/hr IV . Q1H1M STA Rx#:[id number] Vancomycin 1,750 mg In 500 Sodium Chloride 0.9% 500 ml 500 ml @ 167 mls/hr IVPB ONCE STA Rx#: [id number] fentaNYL (PF) 2,500 mcg 0.083 In Sodium Chloride 0.9% 200 ml @ 100 MCG/HR 10 mls/hr IV .Q24H GREG Rx#: [id number] Output: Urine 27 5 Other: Voiding Method Indwelling Catheter Indwelling Catheter - Exam Intubated on a ventilator S1 S2 heard No edema - Labs CBC & Chem 7: 04/12/18 03:18 04/12/18 03:18 Labs: Abnormal Lab Results - Last 24 Hours (Table) 04/11/18 04/11/18 04/11/18 Range/Units 10:29 12:42 14:22 WBC (3.8-10.6) k/uL RBC (4.30-5.90) m/uL Hgb (13.0-17.5) gm/dL Hct (39.0-53.0) % Neutrophils # (Manual) (1.3-7.7) k/uL ABG pH 7.11 L* (7.35-7.45) ABG pCO2 19 L* (35-45) mmHg ABG pO2 208 H (83-108) mmHg ABG HCO3 6 L* (21-25) mmol/L ABG Total CO2 7 L (19-24) mmol/L ABG O2 Saturation 99.6 H (94-97) % Sodium (137-145) mmol/L Potassium (3.5-5.1) mmol/L Chloride (98-107) mmol/L Carbon Dioxide (22-30) mmol/L BUN (9-20) mg/dL Creatinine (0.66-1.25) mg/dL Glucose (74-99) mg/dL POC Glucose (mg/dL) 250 H (75-99) mg/dL Hemoglobin A1c 6.9 H (4.0-6.0) % Plasma Lactic Acid Marvin (0.7-2.0) mmol/L Calcium (8.4-10.2) mg/dL Magnesium (1.6-2.3) mg/dL Creatine Kinase (55-170) U/L Total Protein (6.3-8.2) g/dL Albumin (3.5-5.0) g/dL TSH (0.465-4.680) mIU/L Urine Protein (Negative) Urine Blood (Negative) Ur Leukocyte Esterase (Negative) Urine RBC (0-5) /hpf Urine WBC (0-5) /hpf Urine WBC Clumps (None) /hpf Amorphous Sediment (None) /hpf 04/11/18 04/11/18 04/11/18 Range/Units 14:27 15:37 15:37 WBC (3.8-10.6) k/uL RBC (4.30-5.90) m/uL Hgb (13.0-17.5) gm/dL Hct (39.0-53.0) % Neutrophils # (Manual) (1.3-7.7) k/uL ABG pH (7.35-7.45) ABG pCO2 (35-45) mmHg ABG pO2 (83-108) mmHg ABG HCO3 (21-25) mmol/L ABG Total CO2 (19-24) mmol/L ABG O2 Saturation (94-97) % Sodium 124 L (137-145) mmol/L Potassium 3.3 L (3.5-5.1) mmol/L Chloride 83 L (98-107) mmol/L Carbon Dioxide 6 L* (22-30) mmol/L BUN 54 H (9-20) mg/dL Creatinine 7.80 H* (0.66-1.25) mg/dL Glucose 214 H (74-99) mg/dL POC Glucose (mg/dL) (75-99) mg/dL Hemoglobin A1c (4.0-6.0) % Plasma Lactic Acid Marvin 15.9 H* (0.7-2.0) mmol/L Calcium 7.3 L (8.4-10.2) mg/dL Magnesium (1.6-2.3) mg/dL Creatine Kinase 351 H (55-170) U/L Total Protein (6.3-8.2) g/dL Albumin (3.5-5.0) g/dL TSH 0.369 L (0.465-4.680) mIU/L Urine Protein (Negative) Urine Blood (Negative) Ur Leukocyte Esterase (Negative) Urine RBC (0-5) /hpf Urine WBC (0-5) /hpf Urine WBC Clumps (None) /hpf Amorphous Sediment (None) /hpf 04/11/18 04/11/18 04/11/18 Range/Units 18:44 19:15 19:50 WBC (3.8-10.6) k/uL RBC (4.30-5.90) m/uL Hgb (13.0-17.5) gm/dL Hct (39.0-53.0) % Neutrophils # (Manual) (1.3-7.7) k/uL ABG pH 7.21 L (7.35-7.45) ABG pCO2 20 L (35-45) mmHg ABG pO2 145 H (83-108) mmHg ABG HCO3 8 L* (21-25) mmol/L ABG Total CO2 9 L (19-24) mmol/L ABG O2 Saturation 99.3 H (94-97) % Sodium (137-145) mmol/L Potassium (3.5-5.1) mmol/L Chloride (98-107) mmol/L Carbon Dioxide (22-30) mmol/L BUN (9-20) mg/dL Creatinine (0.66-1.25) mg/dL Glucose (74-99) mg/dL POC Glucose (mg/dL) 229 H (75-99) mg/dL Hemoglobin A1c (4.0-6.0) % Plasma Lactic Acid Marvin 9.9 H* (0.7-2.0) mmol/L Calcium (8.4-10.2) mg/dL Magnesium (1.6-2.3) mg/dL Creatine Kinase (55-170) U/L Total Protein (6.3-8.2) g/dL Albumin (3.5-5.0) g/dL TSH (0.465-4.680) mIU/L Urine Protein (Negative) Urine Blood (Negative) Ur Leukocyte Esterase (Negative) Urine RBC (0-5) /hpf Urine WBC (0-5) /hpf Urine WBC Clumps (None) /hpf Amorphous Sediment (None) /hpf 04/11/18 04/11/18 04/11/18 Range/Units 20:11 21:56 22:16 WBC (3.8-10.6) k/uL RBC (4.30-5.90) m/uL Hgb (13.0-17.5) gm/dL Hct (39.0-53.0) % Neutrophils # (Manual) (1.3-7.7) k/uL ABG pH (7.35-7.45) ABG pCO2 (35-45) mmHg ABG pO2 (83-108) mmHg ABG HCO3 (21-25) mmol/L ABG Total CO2 (19-24) mmol/L ABG O2 Saturation (94-97) % Sodium (137-145) mmol/L Potassium (3.5-5.1) mmol/L Chloride (98-107) mmol/L Carbon Dioxide (22-30) mmol/L BUN (9-20) mg/dL Creatinine (0.66-1.25) mg/dL Glucose (74-99) mg/dL POC Glucose (mg/dL) 228 H 268 H (75-99) mg/dL Hemoglobin A1c (4.0-6.0) % Plasma Lactic Acid Marvin 6.9 H* (0.7-2.0) mmol/L Calcium (8.4-10.2) mg/dL Magnesium (1.6-2.3) mg/dL Creatine Kinase (55-170) U/L Total Protein (6.3-8.2) g/dL Albumin (3.5-5.0) g/dL TSH (0.465-4.680) mIU/L Urine Protein (Negative) Urine Blood (Negative) Ur Leukocyte Esterase (Negative) Urine RBC (0-5) /hpf Urine WBC (0-5) /hpf Urine WBC Clumps (None) /hpf Amorphous Sediment (None) /hpf 04/11/18 04/11/18 04/12/18 Range/Units 22:59 23:59 03:18 WBC 34.1 H (3.8-10.6) k/uL RBC 3.79 L (4.30-5.90) m/uL Hgb 11.7 L (13.0-17.5) gm/dL Hct 32.7 L (39.0-53.0) % Neutrophils # (Manual) 31.37 H (1.3-7.7) k/uL ABG pH (7.35-7.45) ABG pCO2 (35-45) mmHg ABG pO2 (83-108) mmHg ABG HCO3 (21-25) mmol/L ABG Total CO2 (19-24) mmol/L ABG O2 Saturation (94-97) % Sodium (137-145) mmol/L Potassium (3.5-5.1) mmol/L Chloride (98-107) mmol/L Carbon Dioxide (22-30) mmol/L BUN (9-20) mg/dL Creatinine (0.66-1.25) mg/dL Glucose (74-99) mg/dL POC Glucose (mg/dL) 204 H 147 H (75-99) mg/dL Hemoglobin A1c (4.0-6.0) % Plasma Lactic Acid Marvin (0.7-2.0) mmol/L Calcium (8.4-10.2) mg/dL Magnesium (1.6-2.3) mg/dL Creatine Kinase (55-170) U/L Total Protein (6.3-8.2) g/dL Albumin (3.5-5.0) g/dL TSH (0.465-4.680) mIU/L Urine Protein (Negative) Urine Blood (Negative) Ur Leukocyte Esterase (Negative) Urine RBC (0-5) /hpf Urine WBC (0-5) /hpf Urine WBC Clumps (None) /hpf Amorphous Sediment (None) /hpf 04/12/18 04/12/18 04/12/18 Range/Units 03:18 06:59 07:07 WBC (3.8-10.6) k/uL RBC (4.30-5.90) m/uL Hgb (13.0-17.5) gm/dL Hct (39.0-53.0) % Neutrophils # (Manual) (1.3-7.7) k/uL ABG pH (7.35-7.45) ABG pCO2 33 L (35-45) mmHg ABG pO2 124 H (83-108) mmHg ABG HCO3 (21-25) mmol/L ABG Total CO2 (19-24) mmol/L ABG O2 Saturation 98.9 H (94-97) % Sodium 128 L (137-145) mmol/L Potassium 2.6 L* (3.5-5.1) mmol/L Chloride 93 L (98-107) mmol/L Carbon Dioxide 17 L (22-30) mmol/L BUN 34 H (9-20) mg/dL Creatinine 5.31 H (0.66-1.25) mg/dL Glucose (74-99) mg/dL POC Glucose (mg/dL) 119 H (75-99) mg/dL Hemoglobin A1c (4.0-6.0) % Plasma Lactic Acid Marvin (0.7-2.0) mmol/L Calcium 7.2 L (8.4-10.2) mg/dL Magnesium 1.5 L (1.6-2.3) mg/dL Creatine Kinase (55-170) U/L Total Protein 5.0 L (6.3-8.2) g/dL Albumin 2.8 L (3.5-5.0) g/dL TSH (0.465-4.680) mIU/L Urine Protein (Negative) Urine Blood (Negative) Ur Leukocyte Esterase (Negative) Urine RBC (0-5) /hpf Urine WBC (0-5) /hpf Urine WBC Clumps (None) /hpf Amorphous Sediment (None) /hpf 04/12/18 04/12/18 Range/Units 11:39 11:58 WBC (3.8-10.6) k/uL RBC (4.30-5.90) m/uL Hgb (13.0-17.5) gm/dL Hct (39.0-53.0) % Neutrophils # (Manual) (1.3-7.7) k/uL ABG pH (7.35-7.45) ABG pCO2 (35-45) mmHg ABG pO2 (83-108) mmHg ABG HCO3 (21-25) mmol/L ABG Total CO2 (19-24) mmol/L ABG O2 Saturation (94-97) % Sodium (137-145) mmol/L Potassium (3.5-5.1) mmol/L Chloride (98-107) mmol/L Carbon Dioxide (22-30) mmol/L BUN (9-20) mg/dL Creatinine (0.66-1.25) mg/dL Glucose (74-99) mg/dL POC Glucose (mg/dL) 243 H (75-99) mg/dL Hemoglobin A1c (4.0-6.0) % Plasma Lactic Acid Marvin (0.7-2.0) mmol/L Calcium (8.4-10.2) mg/dL Magnesium (1.6-2.3) mg/dL Creatine Kinase (55-170) U/L Total Protein (6.3-8.2) g/dL Albumin (3.5-5.0) g/dL TSH (0.465-4.680) mIU/L Urine Protein 1+ H (Negative) Urine Blood Moderate H (Negative) Ur Leukocyte Esterase Large H (Negative) Urine RBC 139 H (0-5) /hpf Urine WBC 51 H (0-5) /hpf Urine WBC Clumps Moderate H (None) /hpf Amorphous Sediment Rare H (None) /hpf Microbiology - Last 24 Hours (Table) 04/12/18 00:48 Gram Stain - Preliminary Sputum Sputum Culture - Preliminary 04/11/18 22:42 Urine Culture - Preliminary Urine,Voided Assessment and Plan Assessment: #1 oliguric acute kidney jury secondary to hemodynamic ATN. Currently on the Levophed drip. #2 severe metabolic acidosis secondary to acute kidney injury #3 hypokalemia #4 hyponatremia #5 vent-dependent respiratory failure #6 lactic acidosis Plan: #1 plan hemodialysis today with 0 UF 4K bath. r/o toxic alcohol ingestion. #2 check serology with hematuria on urine analysis #3 strict ins and outs. #4 replace potassium #5 labs in the morning Discussed plan of care with the son.
--- NOTE | 2018-04-12 13:35 | P.PN ---
Subjective Progress Note Date: 04/12/18 Patient is sedated and intubated. No acute events overnight. Patient had hemodialysis yesterday and scheduled for today. Objective - Vital Signs Vital signs: Vital Signs Temp 98.0 F 04/12/18 12:00 Pulse 67 04/12/18 13:00 Resp 20 04/12/18 13:00 BP 102/64 04/12/18 13:00 Pulse Ox 99 04/12/18 13:00 Intake & Output 04/11/18 04/12/18 04/12/18 18:59 06:59 18:59 Intake Total 969.476 3734.763 862.214 Output Total 27 5 Balance 603.976 1901.763 857.214 Weight 86.636 kg 91.7 kg 91.7 kg Intake: IV 4460 625 Dextrose 5% in Water 1, 1660 525 000 ml @ 75 mls/hr IV . [id number] GREG with Sodium Bicarb (1 Meq/ml) 100 ml Rx#:[id number] Piperacillin-Tazobactam 3 100 100 .375 gm In Sodium Chloride 0.9% 100 ml @ 25 mls/hr IVPB ONCE STA Rx# :[id number] Potassium Chloride 20 meq 200 In Water For Injection 1 100ml.bag @ 50 mls/hr IVPB Q2H GREG Rx#: [id number] Sodium Chloride 0.9% 1, 2000 000 ml @ 999 mls/hr IV . Q1H1M ONE Rx#:[id number] Vancomycin 1,750 mg In 500 Sodium Chloride 0.9% 500 ml 500 ml @ 167 mls/hr IVPB ONCE STA Rx#: [id number] Intake, IV Titration 088.232 0455.763 237.214 Amount Dextrose 5% in Water 1, 80 000 ml @ 75 mls/hr IV . [id number] GREG with Sodium Bicarb (1 Meq/ml) 100 ml Rx#:[id number] Midazolam HCl 100 mg In 9.927 Sodium Chloride 0.9% 80 ml @ 0.02 MG/KG/HR 1.99 mls/hr IV .Q24H GREG Rx#: [id number] Norepinephrine 16 mg In 50.938 124.122 Sodium Chloride 0.9% 250 ml @ Titrate IV .Q0M GREG Rx#:[id number] Norepinephrine 4 mg In 250.000 Sodium Chloride 0.9% 250 ml @ Titrate IV .Q0M ONE Rx#:[id number] Propofol 1,000 mg In 10.742 113.092 Empty Bag 1 bag @ Titrate IV .Q0M GREG Rx#: [id number] Sodium Chloride 0.9% 1, 1000 000 ml @ 999 mls/hr IV . Q1H1M GREG Rx#:[id number] Sodium Chloride 0.9% 1, 100 000 ml @ 999 mls/hr IV . Q1H1M STA Rx#:[id number] Vancomycin 1,750 mg In 500 Sodium Chloride 0.9% 500 ml 500 ml @ 167 mls/hr IVPB ONCE STA Rx#: [id number] fentaNYL (PF) 2,500 mcg 0.083 In Sodium Chloride 0.9% 200 ml @ 100 MCG/HR 10 mls/hr IV .Q24H GREG Rx#: [id number] Output: Urine 27 5 Other: Voiding Method Indwelling Catheter Indwelling Catheter - Exam General: The patient is sedated and intubated Eye: there is normal conjunctiva bilaterally. Cardiovascular: Normal S1-S2, no S3-S4, no murmurs. Respiratory: Lungs with mechanical ventilator sounds Gastrointestinal: Abdomen is soft, and nondistended Musculoskeletal: There is no pedal edema. Skin: Skin is warm and dry - Labs CBC & Chem 7: 04/12/18 03:18 04/12/18 03:18 Labs: Abnormal Lab Results - Last 24 Hours (Table) 04/11/18 04/11/18 04/11/18 Range/Units 10:29 14:22 14:27 WBC (3.8-10.6) k/uL RBC (4.30-5.90) m/uL Hgb (13.0-17.5) gm/dL Hct (39.0-53.0) % Neutrophils # (Manual) (1.3-7.7) k/uL ABG pH 7.11 L* (7.35-7.45) ABG pCO2 19 L* (35-45) mmHg ABG pO2 208 H (83-108) mmHg ABG HCO3 6 L* (21-25) mmol/L ABG Total CO2 7 L (19-24) mmol/L ABG O2 Saturation 99.6 H (94-97) % Sodium (137-145) mmol/L Potassium (3.5-5.1) mmol/L Chloride (98-107) mmol/L Carbon Dioxide (22-30) mmol/L BUN (9-20) mg/dL Creatinine (0.66-1.25) mg/dL Glucose (74-99) mg/dL POC Glucose (mg/dL) (75-99) mg/dL Hemoglobin A1c 6.9 H (4.0-6.0) % Plasma Lactic Acid Marvin 15.9 H* (0.7-2.0) mmol/L Calcium (8.4-10.2) mg/dL Magnesium (1.6-2.3) mg/dL Creatine Kinase (55-170) U/L Total Protein (6.3-8.2) g/dL Albumin (3.5-5.0) g/dL TSH (0.465-4.680) mIU/L Urine Protein (Negative) Urine Blood (Negative) Ur Leukocyte Esterase (Negative) Urine RBC (0-5) /hpf Urine WBC (0-5) /hpf Urine WBC Clumps (None) /hpf Amorphous Sediment (None) /hpf 04/11/18 04/11/18 04/11/18 Range/Units 15:37 15:37 18:44 WBC (3.8-10.6) k/uL RBC (4.30-5.90) m/uL Hgb (13.0-17.5) gm/dL Hct (39.0-53.0) % Neutrophils # (Manual) (1.3-7.7) k/uL ABG pH (7.35-7.45) ABG pCO2 (35-45) mmHg ABG pO2 (83-108) mmHg ABG HCO3 (21-25) mmol/L ABG Total CO2 (19-24) mmol/L ABG O2 Saturation (94-97) % Sodium 124 L (137-145) mmol/L Potassium 3.3 L (3.5-5.1) mmol/L Chloride 83 L (98-107) mmol/L Carbon Dioxide 6 L* (22-30) mmol/L BUN 54 H (9-20) mg/dL Creatinine 7.80 H* (0.66-1.25) mg/dL Glucose 214 H (74-99) mg/dL POC Glucose (mg/dL) 229 H (75-99) mg/dL Hemoglobin A1c (4.0-6.0) % Plasma Lactic Acid Marvin (0.7-2.0) mmol/L Calcium 7.3 L (8.4-10.2) mg/dL Magnesium (1.6-2.3) mg/dL Creatine Kinase 351 H (55-170) U/L Total Protein (6.3-8.2) g/dL Albumin (3.5-5.0) g/dL TSH 0.369 L (0.465-4.680) mIU/L Urine Protein (Negative) Urine Blood (Negative) Ur Leukocyte Esterase (Negative) Urine RBC (0-5) /hpf Urine WBC (0-5) /hpf Urine WBC Clumps (None) /hpf Amorphous Sediment (None) /hpf 04/11/18 04/11/18 04/11/18 Range/Units 19:15 19:50 20:11 WBC (3.8-10.6) k/uL RBC (4.30-5.90) m/uL Hgb (13.0-17.5) gm/dL Hct (39.0-53.0) % Neutrophils # (Manual) (1.3-7.7) k/uL ABG pH 7.21 L (7.35-7.45) ABG pCO2 20 L (35-45) mmHg ABG pO2 145 H (83-108) mmHg ABG HCO3 8 L* (21-25) mmol/L ABG Total CO2 9 L (19-24) mmol/L ABG O2 Saturation 99.3 H (94-97) % Sodium (137-145) mmol/L Potassium (3.5-5.1) mmol/L Chloride (98-107) mmol/L Carbon Dioxide (22-30) mmol/L BUN (9-20) mg/dL Creatinine (0.66-1.25) mg/dL Glucose (74-99) mg/dL POC Glucose (mg/dL) 228 H (75-99) mg/dL Hemoglobin A1c (4.0-6.0) % Plasma Lactic Acid Marvin 9.9 H* (0.7-2.0) mmol/L Calcium (8.4-10.2) mg/dL Magnesium (1.6-2.3) mg/dL Creatine Kinase (55-170) U/L Total Protein (6.3-8.2) g/dL Albumin (3.5-5.0) g/dL TSH (0.465-4.680) mIU/L Urine Protein (Negative) Urine Blood (Negative) Ur Leukocyte Esterase (Negative) Urine RBC (0-5) /hpf Urine WBC (0-5) /hpf Urine WBC Clumps (None) /hpf Amorphous Sediment (None) /hpf 04/11/18 04/11/18 04/11/18 Range/Units 21:56 22:16 22:59 WBC (3.8-10.6) k/uL RBC (4.30-5.90) m/uL Hgb (13.0-17.5) gm/dL Hct (39.0-53.0) % Neutrophils # (Manual) (1.3-7.7) k/uL ABG pH (7.35-7.45) ABG pCO2 (35-45) mmHg ABG pO2 (83-108) mmHg ABG HCO3 (21-25) mmol/L ABG Total CO2 (19-24) mmol/L ABG O2 Saturation (94-97) % Sodium (137-145) mmol/L Potassium (3.5-5.1) mmol/L Chloride (98-107) mmol/L Carbon Dioxide (22-30) mmol/L BUN (9-20) mg/dL Creatinine (0.66-1.25) mg/dL Glucose (74-99) mg/dL POC Glucose (mg/dL) 268 H 204 H (75-99) mg/dL Hemoglobin A1c (4.0-6.0) % Plasma Lactic Acid Marvin 6.9 H* (0.7-2.0) mmol/L Calcium (8.4-10.2) mg/dL Magnesium (1.6-2.3) mg/dL Creatine Kinase (55-170) U/L Total Protein (6.3-8.2) g/dL Albumin (3.5-5.0) g/dL TSH (0.465-4.680) mIU/L Urine Protein (Negative) Urine Blood (Negative) Ur Leukocyte Esterase (Negative) Urine RBC (0-5) /hpf Urine WBC (0-5) /hpf Urine WBC Clumps (None) /hpf Amorphous Sediment (None) /hpf 04/11/18 04/12/18 04/12/18 Range/Units 23:59 03:18 03:18 WBC 34.1 H (3.8-10.6) k/uL RBC 3.79 L (4.30-5.90) m/uL Hgb 11.7 L (13.0-17.5) gm/dL Hct 32.7 L (39.0-53.0) % Neutrophils # (Manual) 31.37 H (1.3-7.7) k/uL ABG pH (7.35-7.45) ABG pCO2 (35-45) mmHg ABG pO2 (83-108) mmHg ABG HCO3 (21-25) mmol/L ABG Total CO2 (19-24) mmol/L ABG O2 Saturation (94-97) % Sodium 128 L (137-145) mmol/L Potassium 2.6 L* (3.5-5.1) mmol/L Chloride 93 L (98-107) mmol/L Carbon Dioxide 17 L (22-30) mmol/L BUN 34 H (9-20) mg/dL Creatinine 5.31 H (0.66-1.25) mg/dL Glucose (74-99) mg/dL POC Glucose (mg/dL) 147 H (75-99) mg/dL Hemoglobin A1c (4.0-6.0) % Plasma Lactic Acid Marvin (0.7-2.0) mmol/L Calcium 7.2 L (8.4-10.2) mg/dL Magnesium 1.5 L (1.6-2.3) mg/dL Creatine Kinase (55-170) U/L Total Protein 5.0 L (6.3-8.2) g/dL Albumin 2.8 L (3.5-5.0) g/dL TSH (0.465-4.680) mIU/L Urine Protein (Negative) Urine Blood (Negative) Ur Leukocyte Esterase (Negative) Urine RBC (0-5) /hpf Urine WBC (0-5) /hpf Urine WBC Clumps (None) /hpf Amorphous Sediment (None) /hpf 04/12/18 04/12/18 04/12/18 Range/Units 06:59 07:07 11:39 WBC (3.8-10.6) k/uL RBC (4.30-5.90) m/uL Hgb (13.0-17.5) gm/dL Hct (39.0-53.0) % Neutrophils # (Manual) (1.3-7.7) k/uL ABG pH (7.35-7.45) ABG pCO2 33 L (35-45) mmHg ABG pO2 124 H (83-108) mmHg ABG HCO3 (21-25) mmol/L ABG Total CO2 (19-24) mmol/L ABG O2 Saturation 98.9 H (94-97) % Sodium (137-145) mmol/L Potassium (3.5-5.1) mmol/L Chloride (98-107) mmol/L Carbon Dioxide (22-30) mmol/L BUN (9-20) mg/dL Creatinine (0.66-1.25) mg/dL Glucose (74-99) mg/dL POC Glucose (mg/dL) 119 H 243 H (75-99) mg/dL Hemoglobin A1c (4.0-6.0) % Plasma Lactic Acid Marvin (0.7-2.0) mmol/L Calcium (8.4-10.2) mg/dL Magnesium (1.6-2.3) mg/dL Creatine Kinase (55-170) U/L Total Protein (6.3-8.2) g/dL Albumin (3.5-5.0) g/dL TSH (0.465-4.680) mIU/L Urine Protein (Negative) Urine Blood (Negative) Ur Leukocyte Esterase (Negative) Urine RBC (0-5) /hpf Urine WBC (0-5) /hpf Urine WBC Clumps (None) /hpf Amorphous Sediment (None) /hpf 04/12/18 Range/Units 11:58 WBC (3.8-10.6) k/uL RBC (4.30-5.90) m/uL Hgb (13.0-17.5) gm/dL Hct (39.0-53.0) % Neutrophils # (Manual) (1.3-7.7) k/uL ABG pH (7.35-7.45) ABG pCO2 (35-45) mmHg ABG pO2 (83-108) mmHg ABG HCO3 (21-25) mmol/L ABG Total CO2 (19-24) mmol/L ABG O2 Saturation (94-97) % Sodium (137-145) mmol/L Potassium (3.5-5.1) mmol/L Chloride (98-107) mmol/L Carbon Dioxide (22-30) mmol/L BUN (9-20) mg/dL Creatinine (0.66-1.25) mg/dL Glucose (74-99) mg/dL POC Glucose (mg/dL) (75-99) mg/dL Hemoglobin A1c (4.0-6.0) % Plasma Lactic Acid Marvin (0.7-2.0) mmol/L Calcium (8.4-10.2) mg/dL Magnesium (1.6-2.3) mg/dL Creatine Kinase (55-170) U/L Total Protein (6.3-8.2) g/dL Albumin (3.5-5.0) g/dL TSH (0.465-4.680) mIU/L Urine Protein 1+ H (Negative) Urine Blood Moderate H (Negative) Ur Leukocyte Esterase Large H (Negative) Urine RBC 139 H (0-5) /hpf Urine WBC 51 H (0-5) /hpf Urine WBC Clumps Moderate H (None) /hpf Amorphous Sediment Rare H (None) /hpf Microbiology - Last 24 Hours (Table) 04/12/18 00:48 Gram Stain - Preliminary Sputum Sputum Culture - Preliminary 04/11/18 22:42 Urine Culture - Preliminary Urine,Voided Assessment and Plan Assessment: 1. Acute metabolic acidosis 2. Hypovolemic shock: Lactic acid of 22 on presentation. Still requiring vasopressors 3. Acute kidney injury, anuric: Secondary to ATN 4. History of alcohol abuse. Patient denies any alcohol use on presentation. Alcohol level was negative. Toxic alcohol screen was negative 5. Significant dehydration 6. Systemic inflammatory response syndrome with no established source of infection 7. Electrolyte derangement with hypokalemia and hyponatremia 8. Acute respiratory failure requiring intubation and mechanical ventilation This is a 57-year-old male who presented to the emergency room with hypothermia and multiorgan failure. The history is not clear. Apparently he was found at home. It is unclear to me if his house was warm. It is unclear when the patient was last seen normal. Patient has a history of alcohol abuse but alcohol level on presentation was negative. Toxic alcohol ingestion screening test was negative. Today, I reviewed his lab work results and medication list. Patient's lab work results is improving gradually. PH is back to normal. Scheduled for dialysis again today. Deepak roa. Appreciate [employer] consultant's recommendations. Patient was seen by the layer out plate glass and nephrology. We will replace his potassium. Continue strict urine output monitoring. Celeste catheter in place. Wean off pressors as tolerated for MAP > 60-65. Continue ICU care. Repeat lab work in the morning
[2018-04-12] MEDS ORDERED: VANCOMYCIN 1,500 MG in SODIUM CHLORIDE 0.9% 250 ML IVPB ONE (16:00)
[2018-04-12 17:18] LABS: Glucose,Whole Blood 103 mg/dL (75-99)
[2018-04-12 20:13] LABS: Glucose,Whole Blood 152 mg/dL (75-99)
[2018-04-12] MEDS: SENNOSIDES 8.6 MG TAB PO SCH (20:20)
[2018-04-13 00:26] LABS: Glucose,Whole Blood 169 mg/dL (75-99)
[2018-04-13] MEDS: PROPOFOL 1,000 MG in EMPTY BAG 1 BAG IV SCH (00:43)
[2018-04-13 01:54] LABS: Glucose,Whole Blood 238 mg/dL (75-99)
[2018-04-13] MEDS: INSULIN ASPART 100 UNIT/ML 1 ML 10 ML VIAL SQ SCH ×6 (01:54→21:29)
[2018-04-13] MEDS: DEXTROSE 5% IN WATER 1,000 ML with SODIUM BICARB (1 MEQ/ML) 100 ML IV SCH ×2 (01:54→12:45)
[2018-04-13 04:10] LABS: Glucose,Whole Blood 191 mg/dL (75-99)
[2018-04-13 04:21] LABS: Glucose,Whole Blood 215 mg/dL (75-99)
[2018-04-13 04:30] LABS: Basophils % (A) 0 %; Eosinophils % (A) 0 %; HCT 31.5 % (39.0-53.0); HGB 10.9 gm/dL (13.0-17.5); Lymphocytes # (A) 1.4 k/uL (1.0-4.8); Lymphocytes % (A) 8 %; MCH 30.4 pg (25.0-35.0); MCHC 34.5 g/dL (31.0-37.0); MCV 88.2 fL (80.0-100.0); Mean Platelet Volume 7.2; Monocytes % (A) 6 %; Neutrophils # (A) 14.1 k/uL (1.3-7.7); Neutrophils % (A) 85 %; Platelet Count 300 k/uL (150-450); RBC 3.57 m/uL (4.30-5.90); RDW 13.8 % (11.5-15.5); WBC 16.6 k/uL (3.8-10.6)
[2018-04-13] MEDS: HYDROCORTISONE SUCCINATE 100 MG/2 ML VIAL IV SCH ×3 (04:32→21:29)
[2018-04-13 04:58] LABS: Calcium 7.7 mg/dL (8.4-10.2); Magnesium 1.5 mg/dL (1.6-2.3); Phosphorus 3.1 mg/dL (2.5-4.5); Potassium 3.2 mmol/L (3.5-5.1)
[2018-04-13 05:03] LABS: Vancomycin,Random 27.3 ug/mL
[2018-04-13] MEDS: POTASSIUM CHLORIDE 20 MEQ in WATER FOR INJECTION 1 100ML.BAG IVPB SCH ×2 (07:08→09:43)
[2018-04-13 07:23] LABS: ABG Base Excess 0.6 mmol/L; ABG HCO3 24 mmol/L (21-25); ABG PCO2 32 mmHg (35-45); ABG PH 7.49 (7.35-7.45); ABG PO2 171 mmHg (83-108); ABG TCO2 25 mmol/L (19-24)
[2018-04-13] MEDS: IPRATROPIUM-ALBUTEROL 3 ML NEB INHALATION SCH ×4 (07:28→19:31)
--- NOTE | 2018-04-13 07:38 | OP ---
OPERATIVE REPORT OPERATION: Placement of a left radial arterial line. PREOPERATIVE DIAGNOSIS: Acute respiratory failure and hypotension. POSTOPERATIVE DIAGNOSIS: Acute respiratory failure and hypotension. ANESTHESIA: None deployed. PROCEDURE: The patient was placed in a supine position, the left wrist was placed on a table and prepared in a sterile fashion, drapes were applied. The left radial artery was palpated, cannulated, and a guidewire was placed. A Cook catheter was inserted over the guidewire, and the guidewire was removed. Good blood flow, and good waveform were noted, no evidence of any immediate complications. The line was secured using 3.0 silk sutures. MMODL / IJN: [id number] /
--- NOTE | 2018-04-13 07:41 | XR ---
EXAMINATION TYPE: XR chest 1V DATE OF EXAM: 04/13/2018 COMPARISON: 04/12/2018 HISTORY: SOB, Follow Up FINDINGS: Indwelling tubes and catheters are unchanged. No change in bibasilar opacities. Stable appearance of the cardio-mediastinal structures at this time. IMPRESSION: 1. Stable portable chest. Clinical correlation and follow up until resolution is recommended.
[2018-04-13 08:34] LABS: Glucose,Whole Blood 126 mg/dL (75-99)
[2018-04-13] MEDS: CHLORHEXIDINE GLUCONATE 15 ML CUP MUCOUS MEM SCH (08:44)
[2018-04-13] MEDS: PANTOPRAZOLE 40 MG/10 ML VIAL IV SCH (08:44)
[2018-04-13] MEDS: ENOXAPARIN 30 MG/0.3 ML SYRINGE SQ SCH (08:44)
[2018-04-13] MEDS: PIPERACILLIN-TAZOBACTAM 3.375 GM in SODIUM CHLORIDE 0.9% 100 ML IVPB SCH ×2 (08:46→16:32)
[2018-04-13 12:04] LABS: Glucose,Whole Blood 193 mg/dL (75-99)
--- NOTE | 2018-04-13 12:15 | P.PN ---
Subjective Progress Note Date: 04/13/18 Patient is awake and alert today. Sedation was turned off earlier. Patient is sitting up in the bed. He is still intubated. Urine output is not improving and is still minimal 5 ml per hour. His son is at bedside. Objective - Vital Signs Vital signs: Vital Signs Temp 97.9 F 04/13/18 04:00 Pulse 74 04/13/18 11:29 Resp 18 04/13/18 11:00 BP 99/74 04/13/18 10:00 Pulse Ox 99 04/13/18 11:00 Intake & Output 04/12/18 04/13/18 04/13/18 18:59 06:59 18:59 Intake Total 2366.006 6905.230 4640.426 Output Total 13 30 38 Balance 2353.006 0902.288 3402.426 Weight 91.7 kg 95.9 kg Intake: IV 1781 936 365 Dextrose 5% in Water 1, 975 900 350 000 ml @ 50 mls/hr IV . Q22H [facility] with Sodium Bicarb (1 Meq/ml) 100 ml Rx#:[id number] Piperacillin-Tazobactam 3 100 .375 gm In Sodium Chloride 0.9% 100 ml @ 25 mls/hr IVPB ONCE STA Rx# :[id number] Potassium Chloride 20 meq 200 In Water For Injection 1 100ml.bag @ 50 mls/hr IVPB Q2H [facility] Rx#: [id number] Vancomycin 1,750 mg In 500 Sodium Chloride 0.9% 500 ml 500 ml @ 167 mls/hr IVPB ONCE STA Rx#: [id number] pressure bag 6 36 15 Intake, IV Titration 415.006 253.948 494.426 Amount Norepinephrine 16 mg In 225.748 53.948 94.426 Sodium Chloride 0.9% 250 ml @ Titrate IV .Q0M [facility] Rx#:[id number] Piperacillin-Tazobactam 3 100 .375 gm In Sodium Chloride 0.9% 100 ml @ 25 mls/hr IVPB Q12HR [facility] Rx #:[id number] Potassium Chloride 20 meq 200 In Water For Injection 1 100ml.bag @ 62.5 mls/hr IVPB Q2H [facility] Rx#: [id number] Propofol 1,000 mg In 189.258 200 100 Empty Bag 1 bag @ Titrate IV .Q0M [facility] Rx#: [id number] Tube Feeding 140 420 200 Other 30 90 30 Output: Urine 13 30 38 Other: Voiding Method Indwelling Catheter Indwelling Catheter # Voids 0 ABP, PAP, CO, CI - Last Documented Arterial Blood Pressure 91/55 - Exam General: The patient is awake and intubated Eye: there is normal conjunctiva bilaterally. Cardiovascular: Normal S1-S2, no S3-S4, no murmurs. Respiratory: Lungs with mechanical ventilator sounds Gastrointestinal: Abdomen is soft, and nondistended Musculoskeletal: There is no pedal edema. Skin: Skin is warm and dry - Labs CBC & Chem 7: 04/13/18 04:20 04/13/18 04:20 Labs: Abnormal Lab Results - Last 24 Hours (Table) 04/12/18 04/12/18 04/12/18 Range/Units 11:58 13:00 17:15 WBC (3.8-10.6) k/uL RBC (4.30-5.90) m/uL Hgb (13.0-17.5) gm/dL Hct (39.0-53.0) % Neutrophils # (1.3-7.7) k/uL ABG pH (7.35-7.45) ABG pCO2 (35-45) mmHg ABG pO2 (83-108) mmHg ABG Total CO2 (19-24) mmol/L ABG O2 Saturation (94-97) % Sodium (137-145) mmol/L Potassium 2.7 L* (3.5-5.1) mmol/L Chloride (98-107) mmol/L Creatinine (0.66-1.25) mg/dL Glucose (74-99) mg/dL POC Glucose (mg/dL) 103 H (75-99) mg/dL Calcium (8.4-10.2) mg/dL Magnesium (1.6-2.3) mg/dL Urine Protein 1+ H (Negative) Urine Blood Moderate H (Negative) Ur Leukocyte Esterase Large H (Negative) Urine RBC 139 H (0-5) /hpf Urine WBC 51 H (0-5) /hpf Urine WBC Clumps Moderate H (None) /hpf Amorphous Sediment Rare H (None) /hpf 04/12/18 04/12/18 04/13/18 Range/Units 20:00 20:00 00:13 WBC (3.8-10.6) k/uL RBC (4.30-5.90) m/uL Hgb (13.0-17.5) gm/dL Hct (39.0-53.0) % Neutrophils # (1.3-7.7) k/uL ABG pH (7.35-7.45) ABG pCO2 (35-45) mmHg ABG pO2 (83-108) mmHg ABG Total CO2 (19-24) mmol/L ABG O2 Saturation (94-97) % Sodium (137-145) mmol/L Potassium 3.3 L (3.5-5.1) mmol/L Chloride (98-107) mmol/L Creatinine (0.66-1.25) mg/dL Glucose (74-99) mg/dL POC Glucose (mg/dL) 152 H 169 H (75-99) mg/dL Calcium (8.4-10.2) mg/dL Magnesium (1.6-2.3) mg/dL Urine Protein (Negative) Urine Blood (Negative) Ur Leukocyte Esterase (Negative) Urine RBC (0-5) /hpf Urine WBC (0-5) /hpf Urine WBC Clumps (None) /hpf Amorphous Sediment (None) /hpf 04/13/18 04/13/18 04/13/18 Range/Units 01:51 03:57 04:19 WBC (3.8-10.6) k/uL RBC (4.30-5.90) m/uL Hgb (13.0-17.5) gm/dL Hct (39.0-53.0) % Neutrophils # (1.3-7.7) k/uL ABG pH (7.35-7.45) ABG pCO2 (35-45) mmHg ABG pO2 (83-108) mmHg ABG Total CO2 (19-24) mmol/L ABG O2 Saturation (94-97) % Sodium (137-145) mmol/L Potassium (3.5-5.1) mmol/L Chloride (98-107) mmol/L Creatinine (0.66-1.25) mg/dL Glucose (74-99) mg/dL POC Glucose (mg/dL) 238 H 191 H 215 H (75-99) mg/dL Calcium (8.4-10.2) mg/dL Magnesium (1.6-2.3) mg/dL Urine Protein (Negative) Urine Blood (Negative) Ur Leukocyte Esterase (Negative) Urine RBC (0-5) /hpf Urine WBC (0-5) /hpf Urine WBC Clumps (None) /hpf Amorphous Sediment (None) /hpf 04/13/18 04/13/18 04/13/18 Range/Units 04:20 04:20 07:19 WBC 16.6 H (3.8-10.6) k/uL RBC 3.57 L (4.30-5.90) m/uL Hgb 10.9 L (13.0-17.5) gm/dL Hct 31.5 L (39.0-53.0) % Neutrophils # 14.1 H (1.3-7.7) k/uL ABG pH 7.49 H (7.35-7.45) ABG pCO2 32 L (35-45) mmHg ABG pO2 171 H (83-108) mmHg ABG Total CO2 25 H (19-24) mmol/L ABG O2 Saturation 100.0 H (94-97) % Sodium 128 L (137-145) mmol/L Potassium 3.2 L (3.5-5.1) mmol/L Chloride 94 L (98-107) mmol/L Creatinine 3.61 H (0.66-1.25) mg/dL Glucose 195 H (74-99) mg/dL POC Glucose (mg/dL) (75-99) mg/dL Calcium 7.7 L (8.4-10.2) mg/dL Magnesium 1.5 L (1.6-2.3) mg/dL Urine Protein (Negative) Urine Blood (Negative) Ur Leukocyte Esterase (Negative) Urine RBC (0-5) /hpf Urine WBC (0-5) /hpf Urine WBC Clumps (None) /hpf Amorphous Sediment (None) /hpf 04/13/18 04/13/18 Range/Units 08:21 12:02 WBC (3.8-10.6) k/uL RBC (4.30-5.90) m/uL Hgb (13.0-17.5) gm/dL Hct (39.0-53.0) % Neutrophils # (1.3-7.7) k/uL ABG pH (7.35-7.45) ABG pCO2 (35-45) mmHg ABG pO2 (83-108) mmHg ABG Total CO2 (19-24) mmol/L ABG O2 Saturation (94-97) % Sodium (137-145) mmol/L Potassium (3.5-5.1) mmol/L Chloride (98-107) mmol/L Creatinine (0.66-1.25) mg/dL Glucose (74-99) mg/dL POC Glucose (mg/dL) 126 H 193 H (75-99) mg/dL Calcium (8.4-10.2) mg/dL Magnesium (1.6-2.3) mg/dL Urine Protein (Negative) Urine Blood (Negative) Ur Leukocyte Esterase (Negative) Urine RBC (0-5) /hpf Urine WBC (0-5) /hpf Urine WBC Clumps (None) /hpf Amorphous Sediment (None) /hpf Microbiology - Last 24 Hours (Table) 04/12/18 08:06 Blood Culture - Preliminary Blood No Growth after 24 hours 04/11/18 22:42 Urine Culture - Final Urine,Voided 04/12/18 00:48 Gram Stain - Preliminary Sputum Sputum Culture - Preliminary 04/12/18 11:58 Urine Culture - Preliminary Urine,Catheterized 04/11/18 10:29 Blood Culture - Preliminary Blood No Growth after 24 hours Assessment and Plan Assessment: This is a 57-year-old male who presented to the emergency room with hypothermia and multiorgan failure. The history is not clear. Apparently he was found confused at home. It is unclear to me if his house was warm. It is unclear when the patient was last seen normal. Patient has a history of alcohol abuse but alcohol level on presentation was negative. Toxic alcohol ingestion screening test was negative. Patient was admitted to the ICU and has been treated aggressively for the below mentioned medical problems 1. Acute metabolic acidosis: Improved significantly. Now on bicarb drip at 50 mL per hour 2. Hypovolemic shock: Lactic acid of 22 on presentation. Still requiring vasopressors added low-dose 3. Acute kidney injury, anuric: Secondary to ATN. Requiring hemodialysis. Nephrology following closely. Minimal urine output at 5 mL per hour 4. History of alcohol abuse. Patient denies any alcohol use on presentation. Alcohol level was negative. Toxic alcohol screen was negative 5. Significant dehydration 6. Systemic inflammatory response syndrome with no established source of infection: Maintained on broad-spectrum antibiotic. Culture negative to date. 7. Electrolyte derangement with hypokalemia and hyponatremia: Being replaced 8. Acute respiratory failure requiring intubation and mechanical ventilation Today, I reviewed his lab work results and medication list. Patient's lab work results is improving gradually. PH is back to normal. Continue bicarb drip at 50 per hour and add normal saline at 50 mL per hour to improve fluid status. Magnesium sulfate 2 g 1 time dose ordered. Appreciate ent consultant's recommendations. Dialysis per nephrology. Patient was seen by the cold roller and nephrology. Continue strict urine output monitoring. Celeste catheter in place. Wean off pressors as tolerated for MAP > 60-65. Continue ICU care. Repeat lab work in the morning Patient and his son at bedside were updated about current critical condition. All of their questions answered to their satisfaction.
[2018-04-13] MEDS: SODIUM CHLORIDE 0.9% 1,000 ML IV SCH (12:45)
[2018-04-13] MEDS: MAGNESIUM SULFATE-D5W PMX 1 GM in DEXTROSE/WATER 1 100ML.BAG IVPB SCH ×2 (12:46→14:04)
[2018-04-13] MEDS ORDERED: POTASSIUM CHLORIDE 20 MEQ in WATER FOR INJECTION 1 100ML.BAG IVPB SCH (13:00)
[2018-04-13] MEDS: NOREPINEPHRINE 16 MG in SODIUM CHLORIDE 0.9% 250 ML IV SCH (14:03)
--- NOTE | 2018-04-13 14:10 | P.PN ---
Subjective Progress Note Date: 04/13/18 Seen and examined for the follow-up of acute kidney injury. Admitted with elevated creatinine severe metabolic acidosis and oliguria. He was also hypotensive started on levophed. He had dialysis for the last 2 days and still oliguric, on bicarb drip. Extubated. Objective - Vital Signs Vital signs: Vital Signs Temp 97.9 F 04/13/18 12:00 Pulse 72 04/13/18 13:45 Resp 22 04/13/18 13:45 BP 77/52 04/13/18 12:30 Pulse Ox 98 04/13/18 13:45 Intake & Output 04/12/18 04/13/18 04/13/18 18:59 06:59 18:59 Intake Total 2366.006 3294.176 2872.426 Output Total 13 30 57 Balance 2353.006 5150.937 5965.426 Weight 91.7 kg 95.9 kg Intake: IV 1781 936 571 Dextrose 5% in Water 1, 975 900 450 000 ml @ 50 mls/hr IV . Q22H [facility] with Sodium Bicarb (1 Meq/ml) 100 ml Rx#:[id number] Piperacillin-Tazobactam 3 100 .375 gm In Sodium Chloride 0.9% 100 ml @ 25 mls/hr IVPB ONCE STA Rx# :[id number] Potassium Chloride 20 meq 200 In Water For Injection 1 100ml.bag @ 50 mls/hr IVPB Q2H [facility] Rx#: [id number] Sodium Chloride 0.9% 1, 100 000 ml @ 50 mls/hr IV . Q20H [facility] Rx#:[id number] Vancomycin 1,750 mg In 500 Sodium Chloride 0.9% 500 ml 500 ml @ 167 mls/hr IVPB ONCE STA Rx#: [id number] pressure bag 6 36 21 Intake, IV Titration 415.006 253.948 494.426 Amount Norepinephrine 16 mg In 225.748 53.948 94.426 Sodium Chloride 0.9% 250 ml @ Titrate IV .Q0M [facility] Rx#:[id number] Piperacillin-Tazobactam 3 100 .375 gm In Sodium Chloride 0.9% 100 ml @ 25 mls/hr IVPB Q12HR [facility] Rx #:[id number] Potassium Chloride 20 meq 200 In Water For Injection 1 100ml.bag @ 62.5 mls/hr IVPB Q2H [facility] Rx#: [id number] Propofol 1,000 mg In 189.258 200 100 Empty Bag 1 bag @ Titrate IV .Q0M [facility] Rx#: [id number] Tube Feeding 140 420 250 Other 30 90 30 Output: Urine 13 30 57 Other: Voiding Method Indwelling Catheter Indwelling Catheter # Voids 0 ABP, PAP, CO, CI - Last Documented Arterial Blood Pressure 104/63 - Exam Sitting comfortable in no acute distress S1 S2 heard No edema - Labs CBC & Chem 7: 04/13/18 04:20 04/13/18 12:35 Labs: Abnormal Lab Results - Last 24 Hours (Table) 04/12/18 04/12/18 04/12/18 Range/Units 13:00 17:15 20:00 WBC (3.8-10.6) k/uL RBC (4.30-5.90) m/uL Hgb (13.0-17.5) gm/dL Hct (39.0-53.0) % Neutrophils # (1.3-7.7) k/uL ABG pH (7.35-7.45) ABG pCO2 (35-45) mmHg ABG pO2 (83-108) mmHg ABG Total CO2 (19-24) mmol/L ABG O2 Saturation (94-97) % Sodium (137-145) mmol/L Potassium 2.7 L* (3.5-5.1) mmol/L Chloride (98-107) mmol/L Creatinine (0.66-1.25) mg/dL Glucose (74-99) mg/dL POC Glucose (mg/dL) 103 H 152 H (75-99) mg/dL Plasma Lactic Acid Marvin (0.7-2.0) mmol/L Calcium (8.4-10.2) mg/dL Magnesium (1.6-2.3) mg/dL 04/12/18 04/13/18 04/13/18 Range/Units 20:00 00:13 01:51 WBC (3.8-10.6) k/uL RBC (4.30-5.90) m/uL Hgb (13.0-17.5) gm/dL Hct (39.0-53.0) % Neutrophils # (1.3-7.7) k/uL ABG pH (7.35-7.45) ABG pCO2 (35-45) mmHg ABG pO2 (83-108) mmHg ABG Total CO2 (19-24) mmol/L ABG O2 Saturation (94-97) % Sodium (137-145) mmol/L Potassium 3.3 L (3.5-5.1) mmol/L Chloride (98-107) mmol/L Creatinine (0.66-1.25) mg/dL Glucose (74-99) mg/dL POC Glucose (mg/dL) 169 H 238 H (75-99) mg/dL Plasma Lactic Acid Marvin (0.7-2.0) mmol/L Calcium (8.4-10.2) mg/dL Magnesium (1.6-2.3) mg/dL 04/13/18 04/13/18 04/13/18 Range/Units 03:57 04:19 04:20 WBC 16.6 H (3.8-10.6) k/uL RBC 3.57 L (4.30-5.90) m/uL Hgb 10.9 L (13.0-17.5) gm/dL Hct 31.5 L (39.0-53.0) % Neutrophils # 14.1 H (1.3-7.7) k/uL ABG pH (7.35-7.45) ABG pCO2 (35-45) mmHg ABG pO2 (83-108) mmHg ABG Total CO2 (19-24) mmol/L ABG O2 Saturation (94-97) % Sodium (137-145) mmol/L Potassium (3.5-5.1) mmol/L Chloride (98-107) mmol/L Creatinine (0.66-1.25) mg/dL Glucose (74-99) mg/dL POC Glucose (mg/dL) 191 H 215 H (75-99) mg/dL Plasma Lactic Acid Marvin (0.7-2.0) mmol/L Calcium (8.4-10.2) mg/dL Magnesium (1.6-2.3) mg/dL 04/13/18 04/13/18 04/13/18 Range/Units 04:20 07:19 08:21 WBC (3.8-10.6) k/uL RBC (4.30-5.90) m/uL Hgb (13.0-17.5) gm/dL Hct (39.0-53.0) % Neutrophils # (1.3-7.7) k/uL ABG pH 7.49 H (7.35-7.45) ABG pCO2 32 L (35-45) mmHg ABG pO2 171 H (83-108) mmHg ABG Total CO2 25 H (19-24) mmol/L ABG O2 Saturation 100.0 H (94-97) % Sodium 128 L (137-145) mmol/L Potassium 3.2 L (3.5-5.1) mmol/L Chloride 94 L (98-107) mmol/L Creatinine 3.61 H (0.66-1.25) mg/dL Glucose 195 H (74-99) mg/dL POC Glucose (mg/dL) 126 H (75-99) mg/dL Plasma Lactic Acid Marvin (0.7-2.0) mmol/L Calcium 7.7 L (8.4-10.2) mg/dL Magnesium 1.5 L (1.6-2.3) mg/dL 04/13/18 04/13/18 Range/Units 12:02 12:35 WBC (3.8-10.6) k/uL RBC (4.30-5.90) m/uL Hgb (13.0-17.5) gm/dL Hct (39.0-53.0) % Neutrophils # (1.3-7.7) k/uL ABG pH (7.35-7.45) ABG pCO2 (35-45) mmHg ABG pO2 (83-108) mmHg ABG Total CO2 (19-24) mmol/L ABG O2 Saturation (94-97) % Sodium (137-145) mmol/L Potassium (3.5-5.1) mmol/L Chloride (98-107) mmol/L Creatinine (0.66-1.25) mg/dL Glucose (74-99) mg/dL POC Glucose (mg/dL) 193 H (75-99) mg/dL Plasma Lactic Acid Marvin 4.1 H* (0.7-2.0) mmol/L Calcium (8.4-10.2) mg/dL Magnesium (1.6-2.3) mg/dL Microbiology - Last 24 Hours (Table) 04/12/18 08:06 Blood Culture - Preliminary Blood No Growth after 24 hours 04/11/18 22:42 Urine Culture - Final Urine,Voided 04/12/18 00:48 Gram Stain - Preliminary Sputum Sputum Culture - Preliminary 04/12/18 11:58 Urine Culture - Preliminary Urine,Catheterized 04/11/18 10:29 Blood Culture - Preliminary Blood No Growth after 24 hours Assessment and Plan Assessment: #1 oliguric acute kidney jury secondary to hemodynamic ATN. Currently on the Levophed drip. #2 severe metabolic acidosis secondary to acute kidney injury #3 hypokalemia #4 hyponatremia secondary to hypervolemia #5 vent-dependent respiratory failure status post extubation #6 lactic acidosis Plan: #1 had hemodialysis [id number] for 2 days. Still oliguric around 10-15 ML's an hour. #2 toxic alcohol levels were negative.serology was sent out yesterday to rule out vasculitis. #3 strict ins and outs. #4 replace potassium #5 plan dialysis again tomorrow. Monitor closely for ins and outs for renal recovery.
--- NOTE | 2018-04-13 14:15 | P.PN ---
Subjective Progress Note Date: 04/13/18 Principal diagnosis: Acute respiratory failure secondary to severe and profound metabolic acidosis, exact etiology is unclear at this point. This is a 57-year-old white male supposedly has history of hypertension, diabetes, liver disease, and previous history of GI bleeding, history of Asencio esophagus, gastritis, alcoholic hepatitis, neuropathy related to diabetes, chronic back pain, gouty arthritis, patient presented to the ER by EMS were in he was found to have altered mental status and confusion. Patient apparently lives by himself, and he was found by his relatives confused, and complaining of shortness of breath asking for more air. Upon arrival to the ER , patient was in extreme respiratory distress, he was hypothermic, temperature was 92.5, tachycardic, blood pressure was 70/40, patient was basically intubated upon arrival to the ER, multiple fluid boluses were given, patient was also started on norepinephrine, presently at 20 mcg/m, patient was given multiple fluid boluses, he was found to have profound severe metabolic acidosis , and acute kidney injury. Celeset catheter was placed and there was no urine output whatsoever. Patient was seen by the ER physician, some of the workup is still pending, I saw the patient in the ER, and I recommended immediate stat nephrology consultation, patient may have a presentation of acute ethylene glycol toxicity. Patient may require hemodialysis, and nephrology will be notified by the ER physician. CT of the brain was unremarkable. Patient is presently on Versed drip, dose was adjusted to 5 mg per hour, he was noted to be agitated, and trying to pull out his endotracheal tube. Initial ABG showed a pO2 of 400 pCO2 of 18 pH of 7.01 follow-up ABG showed a pO2 of 28 pCO2 of 19 pH of 7.11 his initial lactic acid was 15.9. BUN was 54 creatinine 7.80 bicarb was 6. Sodium was 124. Patient was also noted to have leukocytosis with WBC count of 25.6, hemoglobin is 12.5. Chest x-ray was noted to have adequate placement of right central line, no evidence of acute pulmonary process noted. Patient was reevaluated today on 04/12/2018, remains on mechanical ventilation, his tidal volume is 500 assist control rate is 20 PEEP is 5 and FiO2 is 40%. His drips include norepinephrine at 19 mcg/m, propofol at 20 mcg/kg/m, and fentanyl at 25 g per hour. He is also on a sodium bicarb drip which I cut down today because of improvement in his metabolic acidosis. Patient underwent hemodialysis yesterday, and he may be hemodialyzed again depending on the delivery driver recommendation. Patient is arousable, opens eyes, but does not seem to follow instructions. ABG today showed a pO2 of 124 pCO2 of 33 pH of 7.44. His electrolytes were reviewed potassium is low being corrected as per protocol. Sodium is up to 128. WBC count is 34.1 hemoglobin is 11.7. Cultures remain nondiagnostic at this point. Patient is empirically on antibiotics. Family is at bedside, and the information I was able to get from the family that the patient is a heavy alcoholic, and he drinks most of the time throughout the whole day. However on this admission the patient had a negative alcohol level in his system. Patient was reevaluated today on 04/13/2018, remains on mechanical ventilation, and I went ahead and discontinued his propofol, patient is still on 7 mcg/m of norepinephrine. His ventilator settings are tidal volume of 500 assist control rate of 20 FiO2 of 35% and PEEP of 5. Remains on a bicarb drip which I cut down into half, patient was receiving dialysis until yesterday, and the next dialysis will be done tomorrow. His bicarb has corrected nicely, but I kept him on a bicarb drip but half of the dose he was on earlier. Patient was awakened, he seems to be following instructions, he was given a trial of IMV pressure support and I will likely proceed with extubating the patient sometime today. He was noted to have episodes of apnea, hence I used a IMV backup rate of 6. Patient was also given a trial of pressure support of 8 and CPAP, but later on switch him to pressure support of 8 and IMV rate of 6. ABG this morning showed a pO2 of 171 pCO2 of 32 pH of 7.49, and this is a 40% FiO2. Electrolytes were reviewed sodium is a bit low at 128 potassium 3.2 and renal profile is still abnormal with creatinine of 3.61. Patient's urine output is less than 5 mL per hour. Objective - Vital Signs Vital signs: Vital Signs Temp 97.9 F 04/13/18 12:00 Pulse 72 04/13/18 13:45 Resp 22 04/13/18 13:45 BP 77/52 04/13/18 12:30 Pulse Ox 98 04/13/18 13:45 Intake & Output 04/12/18 04/13/18 04/13/18 18:59 06:59 18:59 Intake Total 2366.006 1177.218 7043.426 Output Total 13 30 57 Balance 2353.006 9155.226 5156.426 Weight 91.7 kg 95.9 kg Intake: IV 1781 936 571 Dextrose 5% in Water 1, 975 900 450 000 ml @ 50 mls/hr IV . Q22H GREG with Sodium Bicarb (1 Meq/ml) 100 ml Rx#:[id number] Piperacillin-Tazobactam 3 100 .375 gm In Sodium Chloride 0.9% 100 ml @ 25 mls/hr IVPB ONCE STA Rx# :[id number] Potassium Chloride 20 meq 200 In Water For Injection 1 100ml.bag @ 50 mls/hr IVPB Q2H RGEG Rx#: [id number] Sodium Chloride 0.9% 1, 100 000 ml @ 50 mls/hr IV . Q20H GREG Rx#:[id number] Vancomycin 1,750 mg In 500 Sodium Chloride 0.9% 500 ml 500 ml @ 167 mls/hr IVPB ONCE STA Rx#: [id number] pressure bag 6 36 21 Intake, IV Titration 415.006 253.948 494.426 Amount Norepinephrine 16 mg In 225.748 53.948 94.426 Sodium Chloride 0.9% 250 ml @ Titrate IV .Q0M GREG Rx#:[id number] Piperacillin-Tazobactam 3 100 .375 gm In Sodium Chloride 0.9% 100 ml @ 25 mls/hr IVPB Q12HR GREG Rx #:[id number] Potassium Chloride 20 meq 200 In Water For Injection 1 100ml.bag @ 62.5 mls/hr IVPB Q2H GREG Rx#: [id number] Propofol 1,000 mg In 189.258 200 100 Empty Bag 1 bag @ Titrate IV .Q0M GREG Rx#: [id number] Tube Feeding 140 420 250 Other 30 90 30 Output: Urine 13 30 57 Other: Voiding Method Indwelling Catheter Indwelling Catheter # Voids 0 ABP, PAP, CO, CI - Last Documented Arterial Blood Pressure 104/63 - Exam Physical Exam: Revealed a 57-year-old white male on mechanical ventilation, calm , follows all instructions properly. Head: Atraumatic, normocephalic. HEENT:[Neck is supple.] [No neck masses.] [No thyromegaly.] [No JVD.] Chest: [Clear throughout, no crackles, no rhonchi, no wheezes.] Cardiac Exam: [Normal S1 and S2, no S3 gallop, no murmur.] Abdomen: [Soft, nontender, no megaly, no rebound, no guarding, normal bowel sounds.] Extremities: [No clubbing, no edema, no cyanosis.] Neurological Exam: Alert oriented 3, no gross focal neurologic deficits. Psychiatric blunted affect, normal mental status examination, depressed mood Skin: No rashes. Warm and dry. No cyanosis. - Labs CBC & Chem 7: 04/13/18 04:20 04/13/18 12:35 Labs: Abnormal Lab Results - Last 24 Hours (Table) 04/12/18 04/12/18 04/12/18 Range/Units 13:00 17:15 20:00 WBC (3.8-10.6) k/uL RBC (4.30-5.90) m/uL Hgb (13.0-17.5) gm/dL Hct (39.0-53.0) % Neutrophils # (1.3-7.7) k/uL ABG pH (7.35-7.45) ABG pCO2 (35-45) mmHg ABG pO2 (83-108) mmHg ABG Total CO2 (19-24) mmol/L ABG O2 Saturation (94-97) % Sodium (137-145) mmol/L Potassium 2.7 L* (3.5-5.1) mmol/L Chloride (98-107) mmol/L Creatinine (0.66-1.25) mg/dL Glucose (74-99) mg/dL POC Glucose (mg/dL) 103 H 152 H (75-99) mg/dL Plasma Lactic Acid Marvin (0.7-2.0) mmol/L Calcium (8.4-10.2) mg/dL Magnesium (1.6-2.3) mg/dL 04/12/18 04/13/18 04/13/18 Range/Units 20:00 00:13 01:51 WBC (3.8-10.6) k/uL RBC (4.30-5.90) m/uL Hgb (13.0-17.5) gm/dL Hct (39.0-53.0) % Neutrophils # (1.3-7.7) k/uL ABG pH (7.35-7.45) ABG pCO2 (35-45) mmHg ABG pO2 (83-108) mmHg ABG Total CO2 (19-24) mmol/L ABG O2 Saturation (94-97) % Sodium (137-145) mmol/L Potassium 3.3 L (3.5-5.1) mmol/L Chloride (98-107) mmol/L Creatinine (0.66-1.25) mg/dL Glucose (74-99) mg/dL POC Glucose (mg/dL) 169 H 238 H (75-99) mg/dL Plasma Lactic Acid Marvin (0.7-2.0) mmol/L Calcium (8.4-10.2) mg/dL Magnesium (1.6-2.3) mg/dL 04/13/18 04/13/18 04/13/18 Range/Units 03:57 04:19 04:20 WBC 16.6 H (3.8-10.6) k/uL RBC 3.57 L (4.30-5.90) m/uL Hgb 10.9 L (13.0-17.5) gm/dL Hct 31.5 L (39.0-53.0) % Neutrophils # 14.1 H (1.3-7.7) k/uL ABG pH (7.35-7.45) ABG pCO2 (35-45) mmHg ABG pO2 (83-108) mmHg ABG Total CO2 (19-24) mmol/L ABG O2 Saturation (94-97) % Sodium (137-145) mmol/L Potassium (3.5-5.1) mmol/L Chloride (98-107) mmol/L Creatinine (0.66-1.25) mg/dL Glucose (74-99) mg/dL POC Glucose (mg/dL) 191 H 215 H (75-99) mg/dL Plasma Lactic Acid Marvin (0.7-2.0) mmol/L Calcium (8.4-10.2) mg/dL Magnesium (1.6-2.3) mg/dL 04/13/18 04/13/18 04/13/18 Range/Units 04:20 07:19 08:21 WBC (3.8-10.6) k/uL RBC (4.30-5.90) m/uL Hgb (13.0-17.5) gm/dL Hct (39.0-53.0) % Neutrophils # (1.3-7.7) k/uL ABG pH 7.49 H (7.35-7.45) ABG pCO2 32 L (35-45) mmHg ABG pO2 171 H (83-108) mmHg ABG Total CO2 25 H (19-24) mmol/L ABG O2 Saturation 100.0 H (94-97) % Sodium 128 L (137-145) mmol/L Potassium 3.2 L (3.5-5.1) mmol/L Chloride 94 L (98-107) mmol/L Creatinine 3.61 H (0.66-1.25) mg/dL Glucose 195 H (74-99) mg/dL POC Glucose (mg/dL) 126 H (75-99) mg/dL Plasma Lactic Acid Marvin (0.7-2.0) mmol/L Calcium 7.7 L (8.4-10.2) mg/dL Magnesium 1.5 L (1.6-2.3) mg/dL 04/13/18 04/13/18 Range/Units 12:02 12:35 WBC (3.8-10.6) k/uL RBC (4.30-5.90) m/uL Hgb (13.0-17.5) gm/dL Hct (39.0-53.0) % Neutrophils # (1.3-7.7) k/uL ABG pH (7.35-7.45) ABG pCO2 (35-45) mmHg ABG pO2 (83-108) mmHg ABG Total CO2 (19-24) mmol/L ABG O2 Saturation (94-97) % Sodium (137-145) mmol/L Potassium (3.5-5.1) mmol/L Chloride (98-107) mmol/L Creatinine (0.66-1.25) mg/dL Glucose (74-99) mg/dL POC Glucose (mg/dL) 193 H (75-99) mg/dL Plasma Lactic Acid Marvin 4.1 H* (0.7-2.0) mmol/L Calcium (8.4-10.2) mg/dL Magnesium (1.6-2.3) mg/dL Microbiology - Last 24 Hours (Table) 04/12/18 08:06 Blood Culture - Preliminary Blood No Growth after 24 hours 04/11/18 22:42 Urine Culture - Final Urine,Voided 04/12/18 00:48 Gram Stain - Preliminary Sputum Sputum Culture - Preliminary 04/12/18 11:58 Urine Culture - Preliminary Urine,Catheterized 04/11/18 10:29 Blood Culture - Preliminary Blood No Growth after 24 hours Assessment and Plan Assessment: Impression: 1 acute respiratory failure, not hypoxic and not hypercapnic in nature however it is mostly related to severe profound metabolic acidosis. Considering the presentation and considering the patient has known history of alcoholism with negative alcohol level in the blood, I'm strongly suspecting that we may be dealing with acute ethylene glycol toxicity. Hence I recommended a stat immediate consultation with nephrology, patient may require immediate hemodialysis. Patient was dialyzed yesterday, and his numbers are looking a lot better, however the major concern is whether his renal functioning will improve and his kidneys will function again. Apparently the patient used to be on metformin, clearly that metabolic acidosis could be metformin related. Family is not aware of any history of him drinking any windshield fluid, but according to them it would not surprise him if he does. Again no previous history of such thing. 2 acute septic shock is not entirely ruled out, but felt to be less likely. Continue empiric antibiotics until all the cultures become available and negative. 3 severe acute lactic acidosis, again it could be related to a combination of things including metformin, seizures, sepsis, and of course I'm still concerned about the possibility of ethylene glycol toxicity. 4 acute kidney injury and renal failure./Oliguric. 5 history of alcoholism. 6 hypothermia on presentation, being addressed accordingly. Cortisol level was normal hence I will go ahead and cut down on his Solu-Cortef. And likely discontinue. Recommendation: Continue present supportive care measures, continue ventilatory support, hemodynamic support, nutritional support, renal support and dialysis, close monitoring of his renal status, continue GI and DVT prophylaxis, patient will be given trials of weaning, and I would most likely extubate the patient sometime today. Cut down the bicarb drip, continue monitoring renal picture, continue empiric antibiotics, and patient will need to be on alcohol withdrawal protocol. Assuming the patient is extubated today. Critical care time is 40 minutes. Time with Patient: Greater than 30
[2018-04-13] MEDS ORDERED: LORazepam 2 MG/ML INJ IV PRN ×3 (16:23)
[2018-04-13] MEDS: THIAMINE 100 MG/ML 2 ML VIAL IVP SCH (16:32)
[2018-04-13 16:48] LABS: Glucose,Whole Blood 204 mg/dL (75-99)
[2018-04-13 21:25] LABS: Glucose,Whole Blood 280 mg/dL (75-99)
[2018-04-13] MEDS: SENNOSIDES 8.6 MG TAB PO SCH (21:28)
[2018-04-14 02:00] LABS: Glucose,Whole Blood 232 mg/dL (75-99)
[2018-04-14] MEDS: INSULIN ASPART 100 UNIT/ML 1 ML 10 ML VIAL SQ SCH ×6 (02:01→20:34)
[2018-04-14 05:03] LABS: Basophils % (A) 0 %; Eosinophils % (A) 0 %; HCT 29.7 % (39.0-53.0); HGB 10.2 gm/dL (13.0-17.5); Lymphocytes # (A) 0.9 k/uL (1.0-4.8); Lymphocytes % (A) 9 %; MCH 30.5 pg (25.0-35.0); MCHC 34.4 g/dL (31.0-37.0); MCV 88.8 fL (80.0-100.0); Mean Platelet Volume 7.7; Monocytes # (A) 0.6 k/uL (0-1.0); Monocytes % (A) 5 %; Neutrophils # (A) 8.7 k/uL (1.3-7.7); Neutrophils % (A) 85 %; Platelet Count 258 k/uL (150-450); RBC 3.35 m/uL (4.30-5.90); WBC 10.3 k/uL (3.8-10.6)
[2018-04-14 05:14] LABS: Calcium 8.4 mg/dL (8.4-10.2); Magnesium 1.8 mg/dL (1.6-2.3); Phosphorus 2.1 mg/dL (2.5-4.5); Potassium 3.5 mmol/L (3.5-5.1)
[2018-04-14 05:19] LABS: Vancomycin,Random 22.9 ug/mL
[2018-04-14 06:25] LABS: Glucose,Whole Blood 165 mg/dL (75-99)
[2018-04-14] MEDS: IPRATROPIUM-ALBUTEROL 3 ML NEB INHALATION SCH ×4 (07:19→18:43)
[2018-04-14] MEDS: HYDROCORTISONE SUCCINATE 100 MG/2 ML VIAL IV SCH ×2 (08:13→20:34)
[2018-04-14] MEDS: ENOXAPARIN 30 MG/0.3 ML SYRINGE SQ SCH (08:13)
[2018-04-14] MEDS: PANTOPRAZOLE 40 MG/10 ML VIAL IV SCH (08:15)
[2018-04-14] MEDS: THIAMINE 100 MG/ML 2 ML VIAL IVP SCH (08:16)
[2018-04-14] MEDS: PIPERACILLIN-TAZOBACTAM 3.375 GM in SODIUM CHLORIDE 0.9% 100 ML IVPB SCH ×4 (08:21→20:34)
[2018-04-14 09:10] LABS: Complement C3 68.2 mg/dL (80.0-207.0)
--- NOTE | 2018-04-14 10:04 | P.PN ---
Subjective Patient is seen in follow-up for acute kidney injury. His baseline creatinine is 1 and was elevated at 9.37 this admission. Patient was oliguric and subsequently started on hemodialysis. Currently maintained on bicarb drip. He is awake and alert. Oral intake is good. Denies chest pain or shortness of breath. Denies any prior history of kidney disease. Vital signs are stable. General: The patient appeared well nourished and normally developed. HEENT: Head exam is unremarkable. Neck is without jugular venous distension. LUNGS: Lungs are clear to auscultation and percussion. Breath sounds decreased. HEART: Rate and Rhythm are regular. First and second heart sounds normal. No murmurs, rubs or gallops. ABDOMEN: Abdominal exam reveals normal bowel sounds. Non-tender and non- distended. No evidence of peritonitis. EXTREMITITES: No clubbing, cyanosis, or edema. Objective - Vital Signs Vital signs: Vital Signs Temp 97.6 F 04/13/18 20:00 Pulse 74 04/14/18 07:29 Resp 20 04/13/18 23:00 BP 77/52 04/13/18 21:45 Pulse Ox 95 04/13/18 23:15 Intake & Output 04/13/18 04/14/18 04/14/18 18:59 06:59 18:59 Intake Total 2470.426 412 99.239 Output Total 119 68 Balance 2351.426 344 99.239 Intake: IV 1436 412 Dextrose 5% in Water 1, 700 200 000 ml @ 50 mls/hr IV . Q22H GREG with Sodium Bicarb (1 Meq/ml) 100 ml Rx#:[id number] Magnesium Sulfate-D5w Pmx 200 1 gm In Dextrose/Water 1 100ml.bag @ 100 mls/hr IVPB Q1H GREG Rx#: [id number] Piperacillin-Tazobactam 3 50 .375 gm In Sodium Chloride 0.9% 100 ml @ 25 mls/hr IVPB ONCE STA Rx# :[id number] Potassium Chloride 20 meq 100 In Water For Injection 1 100ml.bag @ 50 mls/hr IVPB Q2H GREG Rx#: [id number] Sodium Chloride 0.9% 1, 350 200 000 ml @ 50 mls/hr IV . Q20H GREG Rx#:[id number] pressure bag 36 12 Intake, IV Titration 494.426 99.239 Amount Norepinephrine 16 mg In 94.426 99.239 Sodium Chloride 0.9% 250 ml @ Titrate IV .Q0M GREG Rx#:[id number] Piperacillin-Tazobactam 3 100 .375 gm In Sodium Chloride 0.9% 100 ml @ 25 mls/hr IVPB Q12HR GREG Rx #:[id number] Potassium Chloride 20 meq 200 In Water For Injection 1 100ml.bag @ 62.5 mls/hr IVPB Q2H GREG Rx#: [id number] Propofol 1,000 mg In 100 Empty Bag 1 bag @ Titrate IV .Q0M GREG Rx#: [id number] Oral 260 Tube Feeding 250 Other 30 Output: Urine 119 68 Other: Voiding Method Indwelling Catheter Indwelling Catheter ABP, PAP, CO, CI - Last Documented Arterial Blood Pressure 117/63 - Labs CBC & Chem 7: 04/14/18 04:50 04/14/18 04:50 Labs: Abnormal Lab Results - Last 24 Hours (Table) 04/12/18 04/13/18 04/13/18 Range/Units 17:30 12:02 12:35 RBC (4.30-5.90) m/uL Hgb (13.0-17.5) gm/dL Hct (39.0-53.0) % Neutrophils # (1.3-7.7) k/uL Lymphocytes # (1.0-4.8) k/uL Sodium (137-145) mmol/L Chloride (98-107) mmol/L Creatinine (0.66-1.25) mg/dL Glucose (74-99) mg/dL POC Glucose (mg/dL) 193 H (75-99) mg/dL Plasma Lactic Acid Marvin 4.1 H* (0.7-2.0) mmol/L Phosphorus (2.5-4.5) mg/dL Complement C3 68.2 L (80.0-207.0) mg/dL 04/13/18 04/13/18 04/13/18 Range/Units 16:05 16:35 21:22 RBC (4.30-5.90) m/uL Hgb (13.0-17.5) gm/dL Hct (39.0-53.0) % Neutrophils # (1.3-7.7) k/uL Lymphocytes # (1.0-4.8) k/uL Sodium (137-145) mmol/L Chloride (98-107) mmol/L Creatinine (0.66-1.25) mg/dL Glucose (74-99) mg/dL POC Glucose (mg/dL) 204 H 280 H (75-99) mg/dL Plasma Lactic Acid Marvin 3.3 H* (0.7-2.0) mmol/L Phosphorus (2.5-4.5) mg/dL Complement C3 (80.0-207.0) mg/dL 04/14/18 04/14/18 04/14/18 Range/Units 01:56 04:50 04:50 RBC 3.35 L (4.30-5.90) m/uL Hgb 10.2 L (13.0-17.5) gm/dL Hct 29.7 L (39.0-53.0) % Neutrophils # 8.7 H (1.3-7.7) k/uL Lymphocytes # 0.9 L (1.0-4.8) k/uL Sodium 127 L (137-145) mmol/L Chloride 93 L (98-107) mmol/L Creatinine 4.42 H (0.66-1.25) mg/dL Glucose 184 H (74-99) mg/dL POC Glucose (mg/dL) 232 H (75-99) mg/dL Plasma Lactic Acid Marvin (0.7-2.0) mmol/L Phosphorus 2.1 L (2.5-4.5) mg/dL Complement C3 (80.0-207.0) mg/dL 04/14/18 Range/Units 06:22 RBC (4.30-5.90) m/uL Hgb (13.0-17.5) gm/dL Hct (39.0-53.0) % Neutrophils # (1.3-7.7) k/uL Lymphocytes # (1.0-4.8) k/uL Sodium (137-145) mmol/L Chloride (98-107) mmol/L Creatinine (0.66-1.25) mg/dL Glucose (74-99) mg/dL POC Glucose (mg/dL) 165 H (75-99) mg/dL Plasma Lactic Acid Marvin (0.7-2.0) mmol/L Phosphorus (2.5-4.5) mg/dL Complement C3 (80.0-207.0) mg/dL Microbiology - Last 24 Hours (Table) 04/12/18 11:58 Urine Culture - Final Urine,Catheterized 04/11/18 10:29 Blood Culture - Preliminary Blood No Growth after 48 hours 04/12/18 08:06 Blood Culture - Preliminary Blood No Growth after 24 hours 04/11/18 22:42 Urine Culture - Final Urine,Voided 04/12/18 00:48 Gram Stain - Preliminary Sputum Sputum Culture - Preliminary Assessment and Plan Plan: Assessment: 1. Oliguric acute kidney injury secondary to hemodynamic ATN. Off Levophed at this time. Currently hemodialysis dependent. Baseline creatinine near 1. Patient's noted to have proteinuria as well as RBCs on UA. Hepatitis panel is negative. C3 level is low. 2. Metabolic acidosis maintain on bicarb drip. Improved. Toxic alcohol levels noted to be negative. 3. Hyponatremia secondary to acute kidney injury. 4. History of alcoholism. Plan: Discontinue bicarb drip. Normal saline at 50 mL an hour for maintenance fluids. Encouraged oral intake. Avoid nephrotoxins. Consider stopping vancomycin. Check renal ultrasound. Follow-up serologies. I will also check urine eosinophils and quantify proteinuria. Pending above results, will consider kidney biopsy. Hemodialysis today.
--- NOTE | 2018-04-14 10:34 | P.PN ---
Subjective Progress Note Date: 04/14/18 Principal diagnosis: Acute respiratory failure secondary to severe metabolic acidosis of unclear etiology. This is a 57-year-old white male supposedly has history of hypertension, diabetes, liver disease, and previous history of GI bleeding, history of Asencio esophagus, gastritis, alcoholic hepatitis, neuropathy related to diabetes, chronic back pain, gouty arthritis, patient presented to the ER by EMS were in he was found to have altered mental status and confusion. Patient apparently lives by himself, and he was found by his relatives confused, and complaining of shortness of breath asking for more air. Upon arrival to the ER , patient was in extreme respiratory distress, he was hypothermic, temperature was 92.5, tachycardic, blood pressure was 70/40, patient was basically intubated upon arrival to the ER, multiple fluid boluses were given, patient was also started on norepinephrine, presently at 20 mcg/m, patient was given multiple fluid boluses, he was found to have profound severe metabolic acidosis , and acute kidney injury. Celeste catheter was placed and there was no urine output whatsoever. Patient was seen by the ER physician, some of the workup is still pending, I saw the patient in the ER, and I recommended immediate stat nephrology consultation, patient may have a presentation of acute ethylene glycol toxicity. Patient may require hemodialysis, and nephrology will be notified by the ER physician. CT of the brain was unremarkable. Patient is presently on Versed drip, dose was adjusted to 5 mg per hour, he was noted to be agitated, and trying to pull out his endotracheal tube. Initial ABG showed a pO2 of 400 pCO2 of 18 pH of 7.01 follow-up ABG showed a pO2 of 28 pCO2 of 19 pH of 7.11 his initial lactic acid was 15.9. BUN was 54 creatinine 7.80 bicarb was 6. Sodium was 124. Patient was also noted to have leukocytosis with WBC count of 25.6, hemoglobin is 12.5. Chest x-ray was noted to have adequate placement of right central line, no evidence of acute pulmonary process noted. Patient was reevaluated today on 04/12/2018, remains on mechanical ventilation, his tidal volume is 500 assist control rate is 20 PEEP is 5 and FiO2 is 40%. His drips include norepinephrine at 19 mcg/m, propofol at 20 mcg/kg/m, and fentanyl at 25 g per hour. He is also on a sodium bicarb drip which I cut down today because of improvement in his metabolic acidosis. Patient underwent hemodialysis yesterday, and he may be hemodialyzed again depending on the communication clerk recommendation. Patient is arousable, opens eyes, but does not seem to follow instructions. ABG today showed a pO2 of 124 pCO2 of 33 pH of 7.44. His electrolytes were reviewed potassium is low being corrected as per protocol. Sodium is up to 128. WBC count is 34.1 hemoglobin is 11.7. Cultures remain nondiagnostic at this point. Patient is empirically on antibiotics. Family is at bedside, and the information I was able to get from the family that the patient is a heavy alcoholic, and he drinks most of the time throughout the whole day. However on this admission the patient had a negative alcohol level in his system. Patient was reevaluated today on 04/13/2018, remains on mechanical ventilation, and I went ahead and discontinued his propofol, patient is still on 7 mcg/m of norepinephrine. His ventilator settings are tidal volume of 500 assist control rate of 20 FiO2 of 35% and PEEP of 5. Remains on a bicarb drip which I cut down into half, patient was receiving dialysis until yesterday, and the next dialysis will be done tomorrow. His bicarb has corrected nicely, but I kept him on a bicarb drip but half of the dose he was on earlier. Patient was awakened, he seems to be following instructions, he was given a trial of IMV pressure support and I will likely proceed with extubating the patient sometime today. He was noted to have episodes of apnea, hence I used a IMV backup rate of 6. Patient was also given a trial of pressure support of 8 and CPAP, but later on switch him to pressure support of 8 and IMV rate of 6. ABG this morning showed a pO2 of 171 pCO2 of 32 pH of 7.49, and this is a 40% FiO2. Electrolytes were reviewed sodium is a bit low at 128 potassium 3.2 and renal profile is still abnormal with creatinine of 3.61. Patient's urine output is less than 5 mL per hour. The patient is seen again today 04/14/2018 in follow-up in the intensive care unit. He was successfully extubated yesterday. He is currently awake and alert in no acute distress. He is maintaining good O2 saturations in the 90s on room air. He is currently on a D5W with 2 A of bicarb at 50 MLS per hour. 0.9 normal saline at 50 MLS per hour. The norepinephrine has been weaned off earlier this morning. He is currently on Solu-Cortef. Microbiology negative thus far. White count 10.3. Hemoglobin 10.2. Creatinine 4.42. Sodium 127. Bicarb 24. Making better urine. Remains in a positive balance. He remains on vancomycin and Zosyn. Objective - Vital Signs Vital signs: Vital Signs Temp 97.6 F 04/13/18 20:00 Pulse 77 04/14/18 10:15 Resp 11 L 04/14/18 10:15 BP 89/59 04/14/18 10:15 Pulse Ox 97 04/14/18 08:45 Intake & Output 04/13/18 04/14/18 04/14/18 18:59 06:59 18:59 Intake Total 2470.426 1236 202.239 Output Total 119 284 30 Balance 2351.426 952 172.239 Intake: IV 1436 1236 103 Dextrose 5% in Water 1, 700 600 50 000 ml @ 50 mls/hr IV . Q22H GREG with Sodium Bicarb (1 Meq/ml) 100 ml Rx#:[id number] Magnesium Sulfate-D5w Pmx 200 1 gm In Dextrose/Water 1 100ml.bag @ 100 mls/hr IVPB Q1H [facility]REG Rx#: [id number] Piperacillin-Tazobactam 3 50 .375 gm In Sodium Chloride 0.9% 100 ml @ 25 mls/hr IVPB ONCE STA Rx# :[id number] Potassium Chloride 20 meq 100 In Water For Injection 1 100ml.bag @ 50 mls/hr IVPB Q2H GRGE Rx#: [id number] Sodium Chloride 0.9% 1, 350 600 50 000 ml @ 50 mls/hr IV . Q20H GREG Rx#:[id number] pressure bag 36 36 3 Intake, IV Titration 494.426 99.239 Amount Norepinephrine 16 mg In 94.426 99.239 Sodium Chloride 0.9% 250 ml @ Titrate IV .Q0M GREG Rx#:[id number] Piperacillin-Tazobactam 3 100 .375 gm In Sodium Chloride 0.9% 100 ml @ 25 mls/hr IVPB Q12HR [facility]REG Rx #:[id number] Potassium Chloride 20 meq 200 In Water For Injection 1 100ml.bag @ 62.5 mls/hr IVPB Q2H [facility]REG Rx#: [id number] Propofol 1,000 mg In 100 Empty Bag 1 bag @ Titrate IV .Q0M GREG Rx#: [id number] Oral 260 Tube Feeding 250 Other 30 Output: Urine 119 284 30 Other: Voiding Method Indwelling Catheter Indwelling Catheter ABP, PAP, CO, CI - Last Documented Arterial Blood Pressure 113/66 - Exam GENERAL EXAM: Alert, active, comfortable in no apparent distress. On room air. HEAD: Normocephalic. EYES: Normal reaction of pupils, equal size. NOSE: Clear with pink turbinates. THROAT: No erythema or exudates. NECK: No masses, no JVD. CHEST: No chest wall deformity. LUNGS: Equal air entry with no crackles, wheeze, rhonchi or dullness. CVS: S1 and S2 normal with no audible murmur, regular rhythm. ABDOMEN: No hepatosplenomegaly, normal bowel sounds, no guarding or rigidity. SPINE: No scoliosis or deformity SKIN: No rashes CENTRAL NERVOUS SYSTEM: No focal deficits, tone is normal in all 4 extremities. EXTREMITIES: There is no peripheral edema. No clubbing, no cyanosis. Peripheral pulses are intact. - Labs CBC & Chem 7: 04/14/18 04:50 04/14/18 04:50 Labs: Abnormal Lab Results - Last 24 Hours (Table) 04/12/18 04/13/18 04/13/18 Range/Units 17:30 12:02 12:35 RBC (4.30-5.90) m/uL Hgb (13.0-17.5) gm/dL Hct (39.0-53.0) % Neutrophils # (1.3-7.7) k/uL Lymphocytes # (1.0-4.8) k/uL Sodium (137-145) mmol/L Chloride (98-107) mmol/L Creatinine (0.66-1.25) mg/dL Glucose (74-99) mg/dL POC Glucose (mg/dL) 193 H (75-99) mg/dL Plasma Lactic Acid Marvin 4.1 H* (0.7-2.0) mmol/L Phosphorus (2.5-4.5) mg/dL Complement C3 68.2 L (80.0-207.0) mg/dL 04/13/18 04/13/18 04/13/18 Range/Units 16:05 16:35 21:22 RBC (4.30-5.90) m/uL Hgb (13.0-17.5) gm/dL Hct (39.0-53.0) % Neutrophils # (1.3-7.7) k/uL Lymphocytes # (1.0-4.8) k/uL Sodium (137-145) mmol/L Chloride (98-107) mmol/L Creatinine (0.66-1.25) mg/dL Glucose (74-99) mg/dL POC Glucose (mg/dL) 204 H 280 H (75-99) mg/dL Plasma Lactic Acid Marvin 3.3 H* (0.7-2.0) mmol/L Phosphorus (2.5-4.5) mg/dL Complement C3 (80.0-207.0) mg/dL 04/14/18 04/14/18 04/14/18 Range/Units 01:56 04:50 04:50 RBC 3.35 L (4.30-5.90) m/uL Hgb 10.2 L (13.0-17.5) gm/dL Hct 29.7 L (39.0-53.0) % Neutrophils # 8.7 H (1.3-7.7) k/uL Lymphocytes # 0.9 L (1.0-4.8) k/uL Sodium 127 L (137-145) mmol/L Chloride 93 L (98-107) mmol/L Creatinine 4.42 H (0.66-1.25) mg/dL Glucose 184 H (74-99) mg/dL POC Glucose (mg/dL) 232 H (75-99) mg/dL Plasma Lactic Acid Marvin (0.7-2.0) mmol/L Phosphorus 2.1 L (2.5-4.5) mg/dL Complement C3 (80.0-207.0) mg/dL 04/14/18 Range/Units 06:22 RBC (4.30-5.90) m/uL Hgb (13.0-17.5) gm/dL Hct (39.0-53.0) % Neutrophils # (1.3-7.7) k/uL Lymphocytes # (1.0-4.8) k/uL Sodium (137-145) mmol/L Chloride (98-107) mmol/L Creatinine (0.66-1.25) mg/dL Glucose (74-99) mg/dL POC Glucose (mg/dL) 165 H (75-99) mg/dL Plasma Lactic Acid Marvin (0.7-2.0) mmol/L Phosphorus (2.5-4.5) mg/dL Complement C3 (80.0-207.0) mg/dL Microbiology - Last 24 Hours (Table) 04/12/18 08:06 Blood Culture - Preliminary Blood No Growth after 48 hours 04/12/18 11:58 Urine Culture - Final Urine,Catheterized 04/11/18 10:29 Blood Culture - Preliminary Blood No Growth after 48 hours 04/11/18 22:42 Urine Culture - Final Urine,Voided 04/12/18 00:48 Gram Stain - Preliminary Sputum Sputum Culture - Preliminary Assessment and Plan Assessment: Impression: 1 acute respiratory failure, not hypoxic and not hypercapnic in nature however it is mostly related to severe profound metabolic acidosis. Considering the presentation and considering the patient has known history of alcoholism with negative alcohol level in the blood, suspecting that we may be dealing with acute ethylene glycol toxicity. Hence I recommended a stat immediate consultation with nephrology, patient may require immediate hemodialysis. Patient was dialyzed, and his numbers are looking a lot better, however the major concern is whether his renal functioning will improve and his kidneys will function again. Apparently the patient used to be on metformin, clearly that metabolic acidosis could be metformin related. Currently maintaining good O2 saturations on room air. Creatinine 4.42. 2 acute septic shock is not entirely ruled out, but felt to be less likely. Continue empiric antibiotics until all the cultures become available and negative. 3 severe acute lactic acidosis, again it could be related to a combination of things including metformin, seizures, sepsis, and of course I'm still concerned about the possibility of ethylene glycol toxicity. 4 acute kidney injury and renal failure./Oliguric. 5 history of alcoholism. 6 hypothermia on presentation, being addressed accordingly. Cortisol level was normal hence I will go ahead and cut down on his Solu-Cortef. And likely discontinue. Recommendation: The patient was seen and evaluated by Dr. Marshall. He is currently stable from the pulmonary and critical care standpoint. He is weaned off the norepinephrine earlier this morning. Maintaining good O2 saturations in the 90s on room air. Bicarb recovered. We'll discontinue the bicarb drip. Discontinue the Solu-Cortef. He may be able to transfer out of the intensive care unit later this afternoon. We'll continue to follow make further recommendations based on his clinical status. Critical care time 38 minutes. I, the cosigning physician, performed a history & physical examination of the patient. Lungs sounds with few scattered rhonchi. Maintaining good O2 saturations in the 90s on room air. I discussed the assessment and plan of care with my nurse practitioner, Diana Torres. I attest to the above note as dictated by her.
[2018-04-14] MEDS ORDERED: MAGNESIUM SULFATE-D5W PMX 1 GM in DEXTROSE/WATER 1 100ML.BAG IVPB ONE (11:13)
--- NOTE | 2018-04-14 11:35 | US ---
EXAMINATION TYPE: US kidneys/renal and bladder DATE OF EXAM: 04/14/2018 COMPARISON: NONE CLINICAL HISTORY: . VICKY, exam done portable in ICU. EXAM MEASUREMENTS: Right Kidney: 10.4 x 5.2 x 6.0 cm Left Kidney: 10.9 x 6.7 x 5.8 cm Difficult and limited study due to patient body habitus Right Kidney: 0.4cm echogenic focus mid pole representing a nonobstructing calculus. Left Kidney: 2.5 x 2.4 x 2.7cm hypoechoic area mid/inferior pole demonstrates increased through trans mission compatible with a cyst. Bladder: not fully distended, montgomery catheter There is no evidence for hydronephrosis at this point in time. IMPRESSION: 1. No evidence of hydronephrosis of either kidney. 2. Nonobstructing solitary 4 mm right renal calculus. 3. Benign-appearing cortical left renal cyst.
--- NOTE | 2018-04-14 11:37 | CONS ---
DATE OF CONSULTATION: 04/14/2018 This is a 57-year-old gentleman who was seen by me in the emergency room for placement of urgent dialysis catheter. Patient came with mental status change, confused with high BUN and creatinine. Patient will have dialysis catheter. MEDICAL HISTORY: History of diabetes mellitus, hypertension. PHYSICAL EXAMINATION: On examination, patient was seen in the room. He has been intubated. Chest is clear. Abdomen is soft. Femoral pulses are present. BUN is 56, creatinine is 9.37 and potassium 3.4. PLAN: Placement of the dialysis catheter. Risks and complications discussed. MMODL / IJN: [id number] / [email or web address]
[2018-04-14 12:24] LABS: Glucose,Whole Blood 191 mg/dL (75-99)
[2018-04-14] MEDS: POTASSIUM CHLORIDE ER 20 MEQ TAB.ER PO SCH ×2 (12:26→16:05)
[2018-04-14] MEDS: SODIUM CHLORIDE 0.9% 1,000 ML IV SCH (12:33)
--- NOTE | 2018-04-14 13:19 | PCN ---
PROCEDURE NOTE PREOPERATIVE DIAGNOSIS: Acute on chronic renal failure. PROCEDURE PERFORMED: Placement of a dialysis catheter right femoral approach. DESCRIPTION OF PROCEDURE: The patient was seen in the in the emergency room. Right groin was prepped and draped in usual sterile manner and 1% lidocaine plain infiltrated. Then, micropuncture introduced right femoral vein micropuncture guidewire was passed and 4 Bahamian dilator on the top of the guidewire. Then we passed a regular guidewire and then we placed the dilator on the top of the guidewire. Then, 15 cm dialysis catheter placed on the top of the guidewire, flushed with heparin saline and hep-locked. Incision was checked. No bleeding noted. Secured with 3-0 nylon. Dressing applied. Patient tolerated the procedure well. MMODL / VIRGENN: [id number] /
[2018-04-14 14:32] LABS: C-ANCA <1:20 Titer (<1:20); P-ANCA <1:20 Titer (<1:20)
[2018-04-14 17:16] LABS: Glucose,Whole Blood 235 mg/dL (75-99)
[2018-04-14] MEDS ORDERED: VANCOMYCIN 1,500 MG in SODIUM CHLORIDE 0.9% 250 ML IVPB ONE (18:00)
[2018-04-14] MEDS: DEXTROSE 5% IN WATER 1,000 ML with SODIUM BICARB (1 MEQ/ML) 100 ML IV SCH ×3 (20:27)
[2018-04-14] MEDS: SENNOSIDES 8.6 MG TAB PO SCH (20:35)
[2018-04-14 20:50] LABS: Glucose,Whole Blood 191 mg/dL (75-99)
[2018-04-15 04:32] LABS: Basophils % (A) 0 %; Eosinophils % (A) 0 %; HGB 9.9 gm/dL (13.0-17.5); Lymphocytes % (A) 12 %; MCV 91.3 fL (80.0-100.0); Mean Platelet Volume 8.1; Monocytes # (A) 0.3 k/uL (0-1.0); Monocytes % (A) 4 %; Neutrophils # (A) 6.7 k/uL (1.3-7.7); Neutrophils % (A) 83 %; Platelet Count 206 k/uL (150-450); RBC 3.18 m/uL (4.30-5.90); RDW 14.3 % (11.5-15.5); WBC 8.1 k/uL (3.8-10.6)
[2018-04-15] MEDS: SODIUM CHLORIDE 0.9% 1,000 ML IV SCH (04:32)
[2018-04-15 04:46] LABS: Calcium 8.1 mg/dL (8.4-10.2); Magnesium 1.7 mg/dL (1.6-2.3); Phosphorus 1.3 mg/dL (2.5-4.5); Potassium 4.2 mmol/L (3.5-5.1)
--- NOTE | 2018-04-15 05:25 | PN ---
PROGRESS NOTE DATE OF SERVICE: 04/14/2018 PRESENTING COMPLAINT: Tired. INTERVAL HISTORY: This patient presented with an episode of confusion, possibly passing out at home, found to be in acute renal failure. Creatinine was 9.37 on presentation down to 4.42. Hemodialysis catheter was placed today. The patient was extubated yesterday on 04/13/2018. Blood pressure started running low today and patient is put back on Levophed drip. The patient is tolerating some diet. The patient's daughter and son-in- law are present in the room. The patient did state that he was drinking a bit more of alcohol previously. Does feel a bit tired and run down. REVIEW OF SYSTEMS: Done for constitutional, cardiovascular, GI, pulmonary; relevant findings as above. CURRENT MEDICATIONS: Current medications are reviewed that include DuoNeb, sodium bicarb, IV Solu-Cortef, Levophed drip, IV Zosyn. PHYSICAL EXAMINATION: On examination, temperature 97.7 pulse 95, respiration 23, blood pressure 105/58, pulse ox 94% on room air. GENERAL APPEARANCE: Sitting up, awake, tired. EYES: Pupils equal. Conjunctivae normal. HENT: External appearance of nose and ears normal. Oral cavity normal. NECK: JVD not raised. Mass not palpable. RESPIRATORY: Effort normal. LUNGS: Fair entry. CARDIOVASCULAR: First and second sounds normal. Minimal edema. ABDOMEN: Soft, nontender. PSYCHIATRY: Sitting up, awake, answering questions. INVESTIGATIONS: White count 10.3, hemoglobin 10.2. Sodium 127, potassium 3.5, BUN 20, creatinine 4.42. Abdominal ultrasound shows nonobstructing right kidney stone. Chest x-ray film personally reviewed by me shows possible infiltrate. ASSESSMENT: 1. Acute respiratory failure related to severe metabolic acidosis. 2. Possible aspiration pneumonia. The patient on empirical antibiotics. 3. Acute severe lactic acidosis for multiple reasons. 4. Acute kidney injury, nonoliguric. 5. Hypothermia, cause unknown. 6. Hyponatremia, possibly hypoosmolar. 7. Diabetes mellitus type 2 on oral hypoglycemia. 8. Peripheral neuropathy secondary to diabetes. 9. Depression, not otherwise specified. 10.Essential hypertension. 11.Asencio's esophagus. 12.Chronic alcoholic hepatitis. 13.Normocytic anemia, cause unknown. 14.Hypotensive shock requiring Levophed. PLAN: Continue with current medication and treatment plan including IV Solu-Cortef, IV Zosyn. The patient has got a dialysis catheter in place today. Care was discussed with the patient and the family. Follow with other consultants. ELEAZAR / VERONICA: [id number] /
[2018-04-15] MEDS ORDERED: Phosphorus Replacement Protoco 1 EACH MISC MISCELLANE PRN (05:45)
[2018-04-15] MEDS ORDERED: SODIUM PHOSPHATE 10 MMOL in SODIUM CHLORIDE 0.9% 100 ML IVPB SCH (05:45)
[2018-04-15] MEDS ORDERED: MAGNESIUM SULFATE-D5W PMX 1 GM in DEXTROSE/WATER 1 100ML.BAG IVPB ONE (05:45)
[2018-04-15] MEDS: SODIUM CHLORIDE 0.9% IV SCH ×4 (07:00→12:16)
[2018-04-15] MEDS: SODIUM GLYCEROPHOSPHATE IV SCH ×4 (07:00→12:16)
[2018-04-15 07:11] LABS: Glucose,Whole Blood 200 mg/dL (75-99)
[2018-04-15] MEDS: IPRATROPIUM-ALBUTEROL 3 ML NEB INHALATION SCH (07:45)
[2018-04-15] MEDS: INSULIN ASPART 100 UNIT/ML 1 ML 10 ML VIAL SQ SCH ×4 (07:57→22:11)
[2018-04-15] MEDS: THIAMINE 100 MG/ML 2 ML VIAL IVP SCH (08:03)
[2018-04-15] MEDS: PANTOPRAZOLE 40 MG/10 ML VIAL IV SCH (08:03)
[2018-04-15] MEDS: PIPERACILLIN-TAZOBACTAM 3.375 GM in SODIUM CHLORIDE 0.9% 100 ML IVPB SCH (08:04)
[2018-04-15] MEDS: ENOXAPARIN 30 MG/0.3 ML SYRINGE SQ SCH (08:05)
--- NOTE | 2018-04-15 08:55 | XR ---
EXAMINATION TYPE: XR chest 1V DATE OF EXAM: 04/15/2018 COMPARISON: 04/13/2018 INDICATION: Mechanical ventilation TECHNIQUE: Single frontal view of the chest is obtained. FINDINGS: The heart size is normal. The pulmonary vasculature is normal. There is minimal blunting left costophrenic angle. Right central venous catheter with the tip in the proximal right atrium is stable in position. The endotracheal tube and nasogastric tube is been removed. IMPRESSION: 1. Small left pleural effusion. 2. Right central venous catheter with tip in the right atrium stable in position
--- NOTE | 2018-04-15 09:56 | P.PN ---
Subjective Progress Note Date: 04/15/18 Principal diagnosis: Sepsis, renal failure Progress note dated 04/15/2018 This is a very pleasant 57-year-old male with a history of respiratory failure secondary to severe metabolic acidosis. The patient had dialysis yesterday. His chest x-ray looks good safer a small left-sided pleural effusion. Patient feels well. The patient is currently not receiving any supplemental oxygen. Patient's get a saline IV running at 50 mL an hour and the norepinephrine has been off since 3:00 in the morning. From my perspective, the patient be transferred out to the general medical floor. The patient was also thought to possibly have sepsis/septic shock although that is not been proven, severe have a lactic acidosis, acute kidney injury, alcohol abuse, and hypothermia. The patient was on hydrocortisone but that has been discontinued. Again, the patient's doing well and feeling well. He denies any shortness breath difficulty breathing coughing wheezing or phlegm production. Likewise, he denies any chest pain or chest discomfort nausea vomiting or diarrhea. Objective - Vital Signs Vital signs: Vital Signs Temp 97.8 F 04/15/18 08:00 Pulse 88 04/15/18 08:00 Resp 14 04/15/18 08:00 BP 108/80 04/15/18 08:00 Pulse Ox 97 04/15/18 08:00 Intake & Output 04/14/18 04/15/18 04/15/18 18:59 06:59 18:59 Intake Total 1976.666 938.244 306 Output Total 365 260 175 Balance 1611.666 678.244 131 Weight 101.8 kg 101.9 kg Intake: IV 1029 683 306 Dextrose 5% in Water 1, 100 000 ml @ 50 mls/hr IV . Q22H GREG with Sodium Bicarb (1 Meq/ml) 100 ml Rx#:[id number] Magnesium Sulfate-D5w Pmx 100 1 gm In Dextrose/Water 1 100ml.bag @ 100 mls/hr IVPB ONCE ONE Rx#: [id number] Piperacillin-Tazobactam 3 100 .375 gm In Sodium Chloride 0.9% 100 ml @ 25 mls/hr IVPB Q12HR GREG Rx #:[id number] Sodium Chloride 0.9% 1, 640 550 100 000 ml @ 50 mls/hr IV . Q20H GREG Rx#:[id number] Sodium Glycerophosphate 100 10 mmol In Sodium Chloride 0.9% 100 ml @ 50 mls/hr IV Q2H [facility] Rx#: [id number] Vancomycin 1,500 mg In 250 Sodium Chloride 0.9% 250 ml @ 125 mls/hr IVPB ONCE ONE Rx#:[id number] pressure bag 39 33 6 Intake, IV Titration 107.666 15.244 Amount Norepinephrine 16 mg In 107.666 15.244 Sodium Chloride 0.9% 250 ml @ Titrate IV .Q0M [facility] Rx#:[id number] Oral 840 240 Output: Urine 365 260 175 Other: Voiding Method Indwelling Catheter Indwelling Catheter ABP, PAP, CO, CI - Last Documented Arterial Blood Pressure 117/68 - Exam No acute distress, oriented 3. No supplemental oxygen noted. HEENT examination is grossly unremarkable. Mucous membranes are moist. No oral lesions. Neck supple. Full range of motion. No adenopathy thyromegaly or neck vein distention. Cardiovascular examination reveals regular rhythm rate. S1-S2 normal. No S3 or S4. No discernible murmur noted. Heart sounds are distant. Lungs reveal clear breath sounds. His breath sounds are equal bilaterally. No adventitious lung sounds including wheezes rhonchi or crackles. Abdomen soft bowel sounds are heard. No masses or tenderness. Extremities are intact. Mild edema noted. No cyanosis or clubbing. Skin is without rash or lesion. Neurologic examination is brief but nonfocal. - Labs CBC & Chem 7: 04/15/18 04:17 04/15/18 04:17 Labs: Abnormal Lab Results - Last 24 Hours (Table) 04/14/18 04/14/18 04/14/18 Range/Units 11:47 11:55 17:12 RBC (4.30-5.90) m/uL Hgb (13.0-17.5) gm/dL Hct (39.0-53.0) % Sodium (137-145) mmol/L Creatinine (0.66-1.25) mg/dL Glucose (74-99) mg/dL POC Glucose (mg/dL) 191 H 235 H (75-99) mg/dL Calcium (8.4-10.2) mg/dL Phosphorus (2.5-4.5) mg/dL U Random Total Protein 37 H (<12) mg/dL 1104/15/18 04/15/18 Range/Units 20:25 04:17 04:17 RBC 3.18 L (4.30-5.90) m/uL Hgb 9.9 L (13.0-17.5) gm/dL Hct 29.0 L (39.0-53.0) % Sodium 131 L (137-145) mmol/L Creatinine 3.55 H (0.66-1.25) mg/dL Glucose 206 H (74-99) mg/dL POC Glucose (mg/dL) 191 H (75-99) mg/dL Calcium 8.1 L (8.4-10.2) mg/dL Phosphorus 1.3 L (2.5-4.5) mg/dL U Random Total Protein (<12) mg/dL 04/15/18 Range/Units 06:58 RBC (4.30-5.90) m/uL Hgb (13.0-17.5) gm/dL Hct (39.0-53.0) % Sodium (137-145) mmol/L Creatinine (0.66-1.25) mg/dL Glucose (74-99) mg/dL POC Glucose (mg/dL) 200 H (75-99) mg/dL Calcium (8.4-10.2) mg/dL Phosphorus (2.5-4.5) mg/dL U Random Total Protein (<12) mg/dL Microbiology - Last 24 Hours (Table) 04/11/18 10:29 Blood Culture - Preliminary Blood No Growth after 72 hours 04/12/18 00:48 Gram Stain - Final Sputum Sputum Culture - Final 04/12/18 08:06 Blood Culture - Preliminary Blood No Growth after 48 hours Assessment and Plan Assessment: Assessment Acute respiratory failure requiring intubation and mechanical ventilation with subsequent extubation, secondary to profound metabolic acidosis. Routine ventilator management for respiratory failure, resolved History of severe anion gap metabolic acidosis, secondary to lactic acidemia Possible acute septic shock, resolved Acute kidney injury requiring hemodialysis History of chronic alcohol abuse History of hypertension History of diabetes History of chronic liver disease History of GI bleed History of Asencio's esophagus/gastritis History of alcoholic hepatitis History of diabetic neuropathy History of gout Plan: Plan dated 04/15/2018 The patient's labs x-rays a medications are all reviewed. The norepinephrine has been off since 3:00 in the morning. I don't believe the patient needs any additional IV fluids so the saline IV will be turned off. Chest x-ray is stable. Small left pleural effusion. White count 8.1. . Hemoglobin 9.9, hematocrit 29 and platelet count normal. Sodium 131 potassium 4.2 chloride is 98 CO2 27 BUN 19 creatinine 3.55. We will continue to follow make additional recommendations. Again labs x-rays a medications are reviewed. The patient is examined with the team present. The nurse was also present. Again the IV will be shut off. Possible transfer to the general medical floor later today. Continues to remain stable. Critical care time 33 minutes Time with Patient: Greater than 30
[2018-04-15 11:49] LABS: Glucose,Whole Blood 174 mg/dL (75-99)
[2018-04-15] MEDS: SODIUM CHLORIDE 0.9% 500 ML 500 ML IV SCH (12:19)
--- NOTE | 2018-04-15 12:23 | P.PN ---
Subjective Patient is seen in follow-up for acute kidney injury. His baseline creatinine is 1 and was elevated at 9.37 this admission. Patient was oliguric and subsequently started on hemodialysis. Currently off IV fluids. He is awake and alert. Oral intake is good. Denies chest pain or shortness of breath. Denies any prior history of kidney disease. Tolerated hemodialysis well yesterday. Urine output about 40 mL an hour. Vital signs are stable. General: The patient appeared well nourished and normally developed. HEENT: Head exam is unremarkable. Neck is without jugular venous distension. LUNGS: Lungs are clear to auscultation and percussion. Breath sounds decreased. HEART: Rate and Rhythm are regular. First and second heart sounds normal. No murmurs, rubs or gallops. ABDOMEN: Abdominal exam reveals normal bowel sounds. Non-tender and non- distended. No evidence of peritonitis. EXTREMITITES: No clubbing, cyanosis, or edema. Objective - Vital Signs Vital signs: Vital Signs Temp 97.7 F 04/15/18 12:00 Pulse 81 04/15/18 12:00 Resp 19 04/15/18 12:00 BP 116/87 04/15/18 11:00 Pulse Ox 95 04/15/18 12:00 Intake & Output 04/14/18 04/15/18 04/15/18 18:59 06:59 18:59 Intake Total 1976.666 938.244 798 Output Total 365 260 315 Balance 1611.666 678.244 483 Weight 101.8 kg 101.9 kg 101.9 kg Intake: IV 1029 683 558 Dextrose 5% in Water 1, 100 000 ml @ 50 mls/hr IV . Q22H [facility] with Sodium Bicarb (1 Meq/ml) 100 ml Rx#:[id number] Magnesium Sulfate-D5w Pmx 100 1 gm In Dextrose/Water 1 100ml.bag @ 100 mls/hr IVPB ONCE ONE Rx#: [id number] Piperacillin-Tazobactam 3 100 100 .375 gm In Sodium Chloride 0.9% 100 ml @ 25 mls/hr IVPB Q12HR [facility] Rx #:[id number] Sodium Chloride 0.9% 1, 640 550 120 000 ml @ 50 mls/hr IV . Q20H [facility] Rx#:[id number] Sodium Chloride 0.9% 500 20 ml 500 ml @ 20 mls/hr IV .Q24H [facility] Rx#:[id number] Sodium Glycerophosphate 200 10 mmol In Sodium Chloride 0.9% 100 ml @ 50 mls/hr IV Q2H [facility] Rx#: [id number] Vancomycin 1,500 mg In 250 Sodium Chloride 0.9% 250 ml @ 125 mls/hr IVPB ONCE ONE Rx#:[id number] pressure bag 39 33 18 Intake, IV Titration 107.666 15.244 Amount Norepinephrine 16 mg In 107.666 15.244 Sodium Chloride 0.9% 250 ml @ Titrate IV .Q0M [facility] Rx#:[id number] Oral 840 240 240 Output: Urine 365 260 315 Other: Voiding Method Indwelling Catheter Indwelling Catheter Indwelling Catheter ABP, PAP, CO, CI - Last Documented Arterial Blood Pressure 111/57 - Labs CBC & Chem 7: 04/15/18 04:17 04/15/18 04:17 Labs: Abnormal Lab Results - Last 24 Hours (Table) 04/14/18 04/14/18 04/14/18 Range/Units 11:47 11:55 17:12 RBC (4.30-5.90) m/uL Hgb (13.0-17.5) gm/dL Hct (39.0-53.0) % Sodium (137-145) mmol/L Creatinine (0.66-1.25) mg/dL Glucose (74-99) mg/dL POC Glucose (mg/dL) 191 H 235 H (75-99) mg/dL Calcium (8.4-10.2) mg/dL Phosphorus (2.5-4.5) mg/dL U Random Total Protein 37 H (<12) mg/dL 04/14/18 04/15/18 04/15/18 Range/Units 20:25 04:17 04:17 RBC 3.18 L (4.30-5.90) m/uL Hgb 9.9 L (13.0-17.5) gm/dL Hct 29.0 L (39.0-53.0) % Sodium 131 L (137-145) mmol/L Creatinine 3.55 H (0.66-1.25) mg/dL Glucose 206 H (74-99) mg/dL POC Glucose (mg/dL) 191 H (75-99) mg/dL Calcium 8.1 L (8.4-10.2) mg/dL Phosphorus 1.3 L (2.5-4.5) mg/dL U Random Total Protein (<12) mg/dL 04/15/18 04/15/18 Range/Units 06:58 11:45 RBC (4.30-5.90) m/uL Hgb (13.0-17.5) gm/dL Hct (39.0-53.0) % Sodium (137-145) mmol/L Creatinine (0.66-1.25) mg/dL Glucose (74-99) mg/dL POC Glucose (mg/dL) 200 H 174 H (75-99) mg/dL Calcium (8.4-10.2) mg/dL Phosphorus (2.5-4.5) mg/dL U Random Total Protein (<12) mg/dL Microbiology - Last 24 Hours (Table) 04/12/18 08:06 Blood Culture - Preliminary Blood No Growth after 72 hours 04/11/18 10:29 Blood Culture - Preliminary Blood No Growth after 72 hours 04/12/18 00:48 Gram Stain - Final Sputum Sputum Culture - Final Assessment and Plan Plan: Assessment: 1. Oliguric acute kidney injury secondary to hemodynamic ATN. Off Levophed at this time. Currently hemodialysis dependent. Baseline creatinine near 1. Patient's noted to have proteinuria as well as RBCs on UA. Hepatitis panel is negative. C3 level is low. No evidence of hydronephrosis noted on renal ultrasound. 2. Metabolic acidosis maintain on bicarb drip. Improved. Toxic alcohol levels noted to be negative. 3. Hyponatremia secondary to acute kidney injury. Better today. 4. History of alcoholism. Plan: Remains off all IV fluids. Encouraged oral intake. Avoid nephrotoxins. Vancomycin discontinued. Follow-up serologies. Schedule for kidney biopsy. Monitor renal function and urine output closely. Assess for renal placement therapy on day-to-day basis.
[2018-04-15 14:09] VITALS: BMI 30.4
[2018-04-15] MEDS: LORazepam 2 MG/ML INJ IV PRN (15:46)
[2018-04-15 17:12] LABS: Prothrombin Time 9.5 sec (9.0-12.0)
[2018-04-15 18:58] LABS: Glucose,Whole Blood 128 mg/dL (75-99)
[2018-04-15 21:05] LABS: Glucose,Whole Blood 143 mg/dL (75-99)
[2018-04-15] MEDS: SENNOSIDES 8.6 MG TAB PO SCH (22:43)
--- NOTE | 2018-04-15 23:23 | PN ---
PROGRESS NOTE DATE OF SERVICE: 04/15/2018. PRESENTING COMPLAINT: Tired. INTERVAL HISTORY: This patient presented with episode of confusion, passing out at home, found in acute renal failure. Creatinine has been coming down. The patient was extubated on 04/13/2018. The patient was on pressors previously. The patient is doing better. The Levophed was taken off earlier this morning. Urine output has been good. REVIEW OF SYSTEMS: Done for constitutional, cardiovascular, GI, pulmonary; relevant findings as above. CURRENT MEDICATIONS: Reviewed, that include Protonix, maintenance dose of IV fluids. Antibiotics were all discontinued. PHYSICAL EXAMINATION: Temperature 97.9 pulse 74, respirations 14, blood pressure 106/88, pulse 97% on room air. GENERAL APPEARANCE: Sitting up, awake. EYES: Pupils equal. Conjunctivae normal. HEENT: External appearance of nose and ears normal. Oral cavity normal. NECK: JVD not raised. Mass not palpable. Respiratory effort normal. LUNGS: Fair air entry. CARDIOVASCULAR: 1st and 2nd sounds. Minimal edema. ABDOMEN: Soft, nontender. Liver and spleen not palpable. PSYCHIATRY: Awake, answering questions appropriately. INVESTIGATIONS: White count 8.1, hemoglobin 9.9, potassium 4.2, BUN 19, creatinine 3.55. ASSESSMENT: 1. Acute respiratory failure related to severe metabolic acidosis. 2. Possible aspiration pneumonia. The patient had been on empirical antibiotics, now discontinued. 3. Acute severe lactic acidosis for multiple reasons. 4. Acute kidney injury, nonoliguric. Continues to improve. 5. Hypothermia, cause unknown, multifactorial. 6. Hyponatremia, possibly hypoosmolar. 7. Diabetes mellitus type 2, on oral hypoglycemic. 8. Peripheral neuropathy secondary to diabetes. 9. Depression, not otherwise specified. 10.Essential hypertension. 11.Asencio's esophagus. 12.Chronic alcoholic hepatitis. 13.Normocytic anemia, cause undetermined. 14.Hypertensive shock status post Levophed. PLAN: At this point, nephrology decided to proceed with kidney biopsy. This will be done by Interventional Radiology. The patient is off pressors, off antibiotics. Renal function continues to gradually improve. Dialysis has been held off for right now. Will follow. MMODL / IJN: [id number] /
[2018-04-16 07:37] LABS: Glucose,Whole Blood 157 mg/dL (75-99)
[2018-04-16] MEDS: INSULIN ASPART 100 UNIT/ML 1 ML 10 ML VIAL SQ SCH ×4 (07:57→21:41)
[2018-04-16] MEDS ORDERED: DESMOPRESSIN ACETATE 30 MCG in SODIUM CHLORIDE 0.9% 50 ML IVPB ONE (09:00)
[2018-04-16] MEDS: THIAMINE 100 MG/ML 2 ML VIAL IVP SCH (09:37)
[2018-04-16] MEDS: PANTOPRAZOLE 40 MG TABLET PO SCH (09:37)
[2018-04-16 09:40] LABS: Basophils % (A) 0 %; Eosinophils # (A) 0.1 k/uL (0-0.7); Eosinophils % (A) 1 %; HCT 33.2 % (39.0-53.0); HGB 11.4 gm/dL (13.0-17.5); Lymphocytes # (A) 1.1 k/uL (1.0-4.8); Lymphocytes % (A) 14 %; MCHC 34.3 g/dL (31.0-37.0); MCV 90.3 fL (80.0-100.0); Mean Platelet Volume 6.7; Monocytes # (A) 0.4 k/uL (0-1.0); Monocytes % (A) 5 %; Neutrophils # (A) 6.1 k/uL (1.3-7.7); Neutrophils % (A) 79 %; Platelet Count 227 k/uL (150-450); RBC 3.68 m/uL (4.30-5.90); RDW 13.9 % (11.5-15.5); WBC 7.8 k/uL (3.8-10.6)
[2018-04-16 09:51] LABS: Phosphorus 2.4 mg/dL (2.5-4.5); Potassium 3.9 mmol/L (3.5-5.1)
[2018-04-16 09:53] LABS: Calcium 8.7 mg/dL (8.4-10.2); Magnesium 1.8 mg/dL (1.6-2.3)
[2018-04-16] MEDS ORDERED: Phosphorus Replacement Protoco 1 EACH MISC MISCELLANE PRN (10:23)
--- NOTE | 2018-04-16 10:23 | P.PN ---
Subjective Patient is seen in follow-up for acute kidney injury. His baseline creatinine is 1 and was elevated at 9.37 this admission. Patient was oliguric and subsequently started on hemodialysis. Currently off IV fluids. He is awake and alert. Oral intake is good. Denies chest pain or shortness of breath. Denies any prior history of kidney disease. rine output has improved significantly, however creatinine is up to 4.43. Vital signs are stable. General: The patient appeared well nourished and normally developed. HEENT: Head exam is unremarkable. Neck is without jugular venous distension. LUNGS: Lungs are clear to auscultation and percussion. Breath sounds decreased. HEART: Rate and Rhythm are regular. First and second heart sounds normal. No murmurs, rubs or gallops. ABDOMEN: Abdominal exam reveals normal bowel sounds. Non-tender and non- distended. No evidence of peritonitis. EXTREMITITES: No clubbing, cyanosis, or edema. Objective - Vital Signs Vital signs: Vital Signs Temp 97 F L 04/16/18 07:43 Pulse 71 04/16/18 09:25 Resp 18 04/16/18 09:25 BP 132/86 04/16/18 07:43 Pulse Ox 97 04/16/18 07:43 Intake & Output 04/15/18 04/16/18 04/16/18 18:59 06:59 18:59 Intake Total 927 240 Output Total 865 2000 Balance 62 -1760 Weight 101.9 kg 102.512 kg Intake: IV 687 20 Magnesium Sulfate-D5w Pmx 100 1 gm In Dextrose/Water 1 100ml.bag @ 100 mls/hr IVPB ONCE ONE Rx#: [id number] Piperacillin-Tazobactam 3 100 .375 gm In Sodium Chloride 0.9% 100 ml @ 25 mls/hr IVPB Q12HR [facility] Rx #:[id number] Sodium Chloride 0.9% 1, 120 000 ml @ 50 mls/hr IV . Q20H [facility] Rx#:[id number] Sodium Chloride 0.9% 500 140 20 ml 500 ml @ 20 mls/hr IV .Q24H [facility] Rx#:[id number] Sodium Glycerophosphate 200 10 mmol In Sodium Chloride 0.9% 100 ml @ 50 mls/hr IV Q2H [facility] Rx#: [id number] pressure bag 27 Oral 240 220 Output: Urine 865 2000 Other: Voiding Method Indwelling Catheter Indwelling Catheter Indwelling Catheter # Bowel Movements 1 1 ABP, PAP, CO, CI - Last Documented Arterial Blood Pressure 101/54 - Labs CBC & Chem 7: 04/16/18 09:09 04/16/18 09:09 Labs: Abnormal Lab Results - Last 24 Hours (Table) 04/15/18 04/15/18 04/15/18 Range/Units 04:17 11:45 17:44 RBC (4.30-5.90) m/uL Hgb (13.0-17.5) gm/dL Hct (39.0-53.0) % Sodium (137-145) mmol/L BUN (9-20) mg/dL Creatinine (0.66-1.25) mg/dL Glucose (74-99) mg/dL POC Glucose (mg/dL) 174 H 128 H (75-99) mg/dL Phosphorus (2.5-4.5) mg/dL Total Protein (PEP) 4.0 L (6.2-8.2) g/dL 04/15/18 04/16/18 04/16/18 Range/Units 21:03 07:34 09:09 RBC 3.68 L (4.30-5.90) m/uL Hgb 11.4 L (13.0-17.5) gm/dL Hct 33.2 L (39.0-53.0) % Sodium (137-145) mmol/L BUN (9-20) mg/dL Creatinine (0.66-1.25) mg/dL Glucose (74-99) mg/dL POC Glucose (mg/dL) 143 H 157 H (75-99) mg/dL Phosphorus (2.5-4.5) mg/dL Total Protein (PEP) (6.2-8.2) g/dL 04/16/18 Range/Units 09:09 RBC (4.30-5.90) m/uL Hgb (13.0-17.5) gm/dL Hct (39.0-53.0) % Sodium 134 L (137-145) mmol/L BUN 25 H (9-20) mg/dL Creatinine 4.43 H (0.66-1.25) mg/dL Glucose 177 H (74-99) mg/dL POC Glucose (mg/dL) (75-99) mg/dL Phosphorus 2.4 L (2.5-4.5) mg/dL Total Protein (PEP) (6.2-8.2) g/dL Microbiology - Last 24 Hours (Table) 04/11/18 10:29 Blood Culture - Preliminary Blood No Growth after 96 hours 04/12/18 08:06 Blood Culture - Preliminary Blood No Growth after 72 hours Assessment and Plan Plan: Assessment: 1. Oliguric, now nonoliguric, acute kidney injury secondary to hemodynamic ATN. Off Levophed at this time. Currently hemodialysis dependent. Baseline creatinine near 1. Patient's noted to have proteinuria as well as RBCs on UA. Hepatitis panel is negative. C3 level is low. Urine eosinophils negative. No evidence of hydronephrosis noted on renal ultrasound. 2. Metabolic acidosis maintain on bicarb drip. Improved. Toxic alcohol levels noted to be negative. 3. Hyponatremia secondary to acute kidney injury. Better today. 4. History of alcoholism. 5. Hypophosphatemia from IV bicarb leading to intracellular shifting. Plan: Remains off all IV fluids. Encouraged oral intake. Avoid nephrotoxins. Vancomycin discontinued. Follow-up serologies. Scheduled for kidney biopsy today - I will give him a dose of DDAVP prior to biopsy. Monitor renal function and urine output closely. Assess for renal placement therapy on day-to-day basis - due to worsening creatinine, I will plan for hemodialysis today. Discontinue Celeste catheter and monitor serial postvoid residuals for urinary retention. Strict I's and O's. 20 mmol of K-Phos IV today.
[2018-04-16] MEDS ORDERED: HYDROmorphone 1 MG/ML 1 ML SYRINGE IVP STA (10:36)
--- NOTE | 2018-04-16 10:52 | P.PN ---
Subjective Progress Note Date: 04/16/18 Principal diagnosis: Acute kidney injury Progress note dated 04/15/2018 This is a very pleasant 57-year-old male with a history of respiratory failure secondary to severe metabolic acidosis. The patient had dialysis yesterday. His chest x-ray looks good safer a small left-sided pleural effusion. Patient feels well. The patient is currently not receiving any supplemental oxygen. Patient's get a saline IV running at 50 mL an hour and the norepinephrine has been off since 3:00 in the morning. From my perspective, the patient be transferred out to the general medical floor. The patient was also thought to possibly have sepsis/septic shock although that is not been proven, severe have a lactic acidosis, acute kidney injury, alcohol abuse, and hypothermia. The patient was on hydrocortisone but that has been discontinued. Again, the patient's doing well and feeling well. He denies any shortness breath difficulty breathing coughing wheezing or phlegm production. Likewise, he denies any chest pain or chest discomfort nausea vomiting or diarrhea. On 04/16/2018 patient seen in follow-up on medical surgical floor. He is awake and alert, oriented 3, in no acute distress, no specific complaints, no acute events overnight, room air pulse ox is 97%. Lung sounds are clear, diminished at the bases. Patient is afebrile. Cultures remain negative thus far. Patient is in -1698 fluid balance, producing large amount of urine. Today's lab work has been reviewed, WBC 7.8, hemoglobin is 11.4, sodium is 134, BUN is 25, creatinine is 4.4. Patient is scheduled for a kidney biopsy today. Objective - Vital Signs Vital signs: Vital Signs Temp 97 F L 04/16/18 07:43 Pulse 68 04/16/18 10:30 Resp 16 04/16/18 10:30 BP 120/80 04/16/18 10:30 Pulse Ox 96 04/16/18 10:30 Intake & Output 04/15/18 04/16/18 04/16/18 18:59 06:59 18:59 Intake Total 927 240 240 Output Total 865 2000 Balance 62 -1760 240 Weight 101.9 kg 102.512 kg Intake: IV 687 20 Magnesium Sulfate-D5w Pmx 100 1 gm In Dextrose/Water 1 100ml.bag @ 100 mls/hr IVPB ONCE ONE Rx#: [id number] Piperacillin-Tazobactam 3 100 .375 gm In Sodium Chloride 0.9% 100 ml @ 25 mls/hr IVPB Q12HR [facility] Rx #:[id number] Sodium Chloride 0.9% 1, 120 000 ml @ 50 mls/hr IV . Q20H [facility] Rx#:[id number] Sodium Chloride 0.9% 500 140 20 ml 500 ml @ 20 mls/hr IV .Q24H [facility] Rx#:[id number] Sodium Glycerophosphate 200 10 mmol In Sodium Chloride 0.9% 100 ml @ 50 mls/hr IV Q2H [facility] Rx#: [id number] pressure bag 27 Oral 240 220 240 Output: Urine 865 2000 Other: Voiding Method Indwelling Catheter Indwelling Catheter Indwelling Catheter # Bowel Movements 1 1 ABP, PAP, CO, CI - Last Documented Arterial Blood Pressure 101/54 - Exam No acute distress, oriented 3. No supplemental oxygen noted. HEENT examination is grossly unremarkable. Mucous membranes are moist. No oral lesions. Neck supple. Full range of motion. No adenopathy thyromegaly or neck vein distention. Cardiovascular examination reveals regular rhythm rate. S1-S2 normal. No S3 or S4. No discernible murmur noted. Heart sounds are distant. Lungs reveal clear breath sounds. His breath sounds are equal bilaterally. No adventitious lung sounds including wheezes rhonchi or crackles. Abdomen soft bowel sounds are heard. No masses or tenderness. Extremities are intact. Mild edema noted. No cyanosis or clubbing. Skin is without rash or lesion. Neurologic examination is brief but nonfocal. - Labs CBC & Chem 7: 04/16/18 09:09 04/16/18 09:09 Labs: Abnormal Lab Results - Last 24 Hours (Table) 04/15/18 04/15/18 04/15/18 Range/Units 04:17 11:45 17:44 RBC (4.30-5.90) m/uL Hgb (13.0-17.5) gm/dL Hct (39.0-53.0) % Sodium (137-145) mmol/L BUN (9-20) mg/dL Creatinine (0.66-1.25) mg/dL Glucose (74-99) mg/dL POC Glucose (mg/dL) 174 H 128 H (75-99) mg/dL Phosphorus (2.5-4.5) mg/dL Total Protein (PEP) 4.0 L (6.2-8.2) g/dL 04/15/18 04/16/18 04/16/18 Range/Units 21:03 07:34 09:09 RBC 3.68 L (4.30-5.90) m/uL Hgb 11.4 L (13.0-17.5) gm/dL Hct 33.2 L (39.0-53.0) % Sodium (137-145) mmol/L BUN (9-20) mg/dL Creatinine (0.66-1.25) mg/dL Glucose (74-99) mg/dL POC Glucose (mg/dL) 143 H 157 H (75-99) mg/dL Phosphorus (2.5-4.5) mg/dL Total Protein (PEP) (6.2-8.2) g/dL 04/16/18 Range/Units 09:09 RBC (4.30-5.90) m/uL Hgb (13.0-17.5) gm/dL Hct (39.0-53.0) % Sodium 134 L (137-145) mmol/L BUN 25 H (9-20) mg/dL Creatinine 4.43 H (0.66-1.25) mg/dL Glucose 177 H (74-99) mg/dL POC Glucose (mg/dL) (75-99) mg/dL Phosphorus 2.4 L (2.5-4.5) mg/dL Total Protein (PEP) (6.2-8.2) g/dL Microbiology - Last 24 Hours (Table) 04/12/18 08:06 Blood Culture - Preliminary Blood No Growth after 96 hours 04/11/18 10:29 Blood Culture - Preliminary Blood No Growth after 96 hours Assessment and Plan Plan: Acute respiratory failure requiring intubation and mechanical ventilation with subsequent extubation, secondary to profound metabolic acidosis. Routine ventilator management for respiratory failure, resolved History of severe anion gap metabolic acidosis, secondary to lactic acidemia Possible acute septic shock, resolved Acute kidney injury requiring hemodialysis History of chronic alcohol abuse History of hypertension History of diabetes History of chronic liver disease History of GI bleed History of Asencio's esophagus/gastritis History of alcoholic hepatitis History of diabetic neuropathy History of gout Plan: Continue current medical treatment, patient is hemodynamically stable, he is nonoliguric. Nephrology is following, patient is scheduled for a kidney biopsy today, from pulmonary perspective patient remains stable, no difficulty breathing, no chest pain, lung sounds are clear, he is on room air. No specific complaints, no acute events overnight. We'll follow on as-needed basis. I performed a history & physical examination of the patient and discussed their management with my nurse practitioner, Kimmy Villaseñor. I reviewed the nurse practitioner's note and agree with the documented findings and plan of care. Lung sounds are clear. The findings and the impression was discussed with the patient. I attest to the documentation by the nurse practitioner. Time with Patient: Less than 30
[2018-04-16 12:10] LABS: Glucose,Whole Blood 109 mg/dL (75-99)
[2018-04-16] MEDS: POTASSIUM PHOSPHATE 10 MMOL in SODIUM CHLORIDE 0.9% 250 ML IV SCH ×2 (12:19→15:44)
[2018-04-16] MEDS: SODIUM CHLORIDE 0.9% 500 ML 500 ML IV SCH (12:20)
[2018-04-16 12:55] LABS: Albumin 2.28 g/dL (3.80-4.90); Gamma Globulin 0.38 g/dL (0.70-1.50)
--- NOTE | 2018-04-16 13:29 | CT ---
EXAMINATION TYPE: CT biopsy renal RT DATE OF EXAM: 04/16/2018 COMPARISON: NONE HISTORY: Renal failure CT DLP: 2667 mGycm The procedure was explained to the patient. The risks, complications, benefits, and alternatives wer e discussed and any questions were answered. Informed consent was obtained. Patient was placed pron e on the CT table and prepped and draped in the usual sterile fashion. Utilizing CT guidance, an 18 gauge core biopsy needle access into the left renal cortex was achieved and three 18 gauge core samples were obtained. The patient was stable throughout the procedure and r emained stable upon discharge. IMPRESSION: Successful 18 gauge core biopsy of the kidney function.
--- NOTE | 2018-04-16 16:05 | ED ---
Medical Decision Making - Medical Decision Making 57 male, patient was intubated secondary to acidotic and altered mental status, airway protection and respiratory failure, this is no documenting intubation procedure - Lab Data Result diagrams: 04/16/18 09:09 04/16/18 09:09 Lab Results 04/11/18 04/11/18 04/11/18 Range/Units 10:29 10:29 10:29 WBC 25.6 H (3.8-10.6) k/uL RBC 4.16 L (4.30-5.90) m/uL Hgb 12.5 L (13.0-17.5) gm/dL Hct 38.8 L (39.0-53.0) % MCV 93.3 (80.0-100.0) fL MCH 30.0 (25.0-35.0) pg MCHC 32.1 (31.0-37.0) g/dL RDW 13.2 (11.5-15.5) % Plt Count 382 (150-450) k/uL Neutrophils % 83 % Lymphocytes % 13 % Monocytes % 3 % Eosinophils % 0 % Basophils % 0 % Neutrophils # 21.2 H (1.3-7.7) k/uL Lymphocytes # 3.2 (1.0-4.8) k/uL Monocytes # 0.8 (0-1.0) k/uL Eosinophils # 0.0 (0-0.7) k/uL Basophils # 0.1 (0-0.2) k/uL Manual Slide Review Performed PT (9.0-12.0) sec INR (<1.2) APTT (22.0-30.0) sec Sample Site ABG pH (7.35-7.45) ABG pCO2 (35-45) mmHg ABG pO2 (83-108) mmHg ABG HCO3 (21-25) mmol/L ABG Total CO2 (19-24) mmol/L ABG O2 Saturation (94-97) % ABG Base Excess mmol/L Tyler Test FiO2 % Sodium (137-145) mmol/L Potassium (3.5-5.1) mmol/L Chloride (98-107) mmol/L Carbon Dioxide (22-30) mmol/L Anion Gap mmol/L BUN (9-20) mg/dL Creatinine (0.66-1.25) mg/dL Est GFR (CKD-EPI)AfAm (>60 ml/min/1.73 sqM) Est GFR (CKD-EPI)NonAf (>60 ml/min/1.73 sqM) Glucose (74-99) mg/dL POC Glucose (mg/dL) (75-99) mg/dL POC Glu Owner/Operator ID Estimated Ave Glu mg/dL Hemoglobin A1c (4.0-6.0) % Lactic Ac Sepsis Rflx Plasma Lactic Acid Marvin 22.5 H* (0.7-2.0) mmol/L Calcium (8.4-10.2) mg/dL Total Bilirubin (0.2-1.3) mg/dL AST (17-59) U/L ALT (21-72) U/L Alkaline Phosphatase (38-126) U/L Ammonia 71 H (<30) umol/L Total Creatine Kinase 50 L (55-170) U/L CK-MB (CK-2) 1.4 (0.0-2.4) ng/mL CK-MB (CK-2) Rel Index 2.8 Troponin I 0.019 (0.000-0.034) ng/mL Total Protein (6.3-8.2) g/dL Albumin (3.5-5.0) g/dL Serum Alcohol mg/dL 04/11/18 04/11/18 04/11/18 Range/Units 10:29 10:29 10:29 WBC (3.8-10.6) k/uL RBC (4.30-5.90) m/uL Hgb (13.0-17.5) gm/dL Hct (39.0-53.0) % MCV (80.0-100.0) fL MCH (25.0-35.0) pg MCHC (31.0-37.0) g/dL RDW (11.5-15.5) % Plt Count (150-450) k/uL Neutrophils % % Lymphocytes % % Monocytes % % Eosinophils % % Basophils % % Neutrophils # (1.3-7.7) k/uL Lymphocytes # (1.0-4.8) k/uL Monocytes # (0-1.0) k/uL Eosinophils # (0-0.7) k/uL Basophils # (0-0.2) k/uL Manual Slide Review PT 11.0 (9.0-12.0) sec INR 1.1 (<1.2) APTT 33.0 H (22.0-30.0) sec Sample Site ABG pH (7.35-7.45) ABG pCO2 (35-45) mmHg ABG pO2 (83-108) mmHg ABG HCO3 (21-25) mmol/L ABG Total CO2 (19-24) mmol/L ABG O2 Saturation (94-97) % ABG Base Excess mmol/L Tyler Test FiO2 % Sodium 120 L (137-145) mmol/L Potassium 3.4 L (3.5-5.1) mmol/L Chloride 72 L* (98-107) mmol/L Carbon Dioxide <5 L* (22-30) mmol/L Anion Gap mmol/L BUN 56 H (9-20) mg/dL Creatinine 9.37 H* (0.66-1.25) mg/dL Est GFR (CKD-EPI)AfAm 6 (>60 ml/min/1.73 sqM) Est GFR (CKD-EPI)NonAf 6 (>60 ml/min/1.73 sqM) Glucose 222 H (74-99) mg/dL POC Glucose (mg/dL) (75-99) mg/dL POC Glu Owner/Operator ID Estimated Ave Glu mg/dL 151 Hemoglobin A1c 6.9 H (4.0-6.0) % Lactic Ac Sepsis Rflx Plasma Lactic Acid Marvin (0.7-2.0) mmol/L Calcium 8.9 (8.4-10.2) mg/dL Total Bilirubin 0.5 (0.2-1.3) mg/dL AST 58 (17-59) U/L ALT 56 (21-72) U/L Alkaline Phosphatase 60 (38-126) U/L Ammonia (<30) umol/L Total Creatine Kinase (55-170) U/L CK-MB (CK-2) (0.0-2.4) ng/mL CK-MB (CK-2) Rel Index Troponin I (0.000-0.034) ng/mL Total Protein 6.2 L (6.3-8.2) g/dL Albumin 3.9 (3.5-5.0) g/dL Serum Alcohol <10 mg/dL 11/04/11/18 04/11/18 Range/Units 11:16 11:55 12:42 WBC (3.8-10.6) k/uL RBC (4.30-5.90) m/uL Hgb (13.0-17.5) gm/dL Hct (39.0-53.0) % MCV (80.0-100.0) fL MCH (25.0-35.0) pg MCHC (31.0-37.0) g/dL RDW (11.5-15.5) % Plt Count (150-450) k/uL Neutrophils % % Lymphocytes % % Monocytes % % Eosinophils % % Basophils % % Neutrophils # (1.3-7.7) k/uL Lymphocytes # (1.0-4.8) k/uL Monocytes # (0-1.0) k/uL Eosinophils # (0-0.7) k/uL Basophils # (0-0.2) k/uL Manual Slide Review PT (9.0-12.0) sec INR (<1.2) APTT (22.0-30.0) sec Sample Site rbrach ABG pH 7.01 L* (7.35-7.45) ABG pCO2 18 L* (35-45) mmHg ABG pO2 >400 H (83-108) mmHg ABG HCO3 5 L* (21-25) mmol/L ABG Total CO2 5 L (19-24) mmol/L ABG O2 Saturation 100.0 H (94-97) % ABG Base Excess -26.7 mmol/L Tyler Test Yes FiO2 100 % Sodium (137-145) mmol/L Potassium (3.5-5.1) mmol/L Chloride (98-107) mmol/L Carbon Dioxide (22-30) mmol/L Anion Gap mmol/L BUN (9-20) mg/dL Creatinine (0.66-1.25) mg/dL Est GFR (CKD-EPI)AfAm (>60 ml/min/1.73 sqM) Est GFR (CKD-EPI)NonAf (>60 ml/min/1.73 sqM) Glucose (74-99) mg/dL POC Glucose (mg/dL) 250 H (75-99) mg/dL POC Glu Owner/Operator ID Jorge Kirkland Estimated Ave Glu mg/dL Hemoglobin A1c (4.0-6.0) % Lactic Ac Sepsis Rflx Y Plasma Lactic Acid Marvin (0.7-2.0) mmol/L Calcium (8.4-10.2) mg/dL Total Bilirubin (0.2-1.3) mg/dL AST (17-59) U/L ALT (21-72) U/L Alkaline Phosphatase (38-126) U/L Ammonia (<30) umol/L Total Creatine Kinase (55-170) U/L CK-MB (CK-2) (0.0-2.4) ng/mL CK-MB (CK-2) Rel Index Troponin I (0.000-0.034) ng/mL Total Protein (6.3-8.2) g/dL Albumin (3.5-5.0) g/dL Serum Alcohol mg/dL Disposition Clinical Impression: Altered mental status, Delirium due to general medical condition, Lactic acidosis, Acute renal failure, Alcohol abuse, Hyperglycemia, Acute respiratory failure, Drug overdose, Hypovolemic shock Disposition: ADMITTED IP TO THIS HOSP Condition: Critical Is patient prescribed a controlled substance at d/c from ED?: No Procedures - Intubation Time Out Performed: Yes Sedative: Versed Paralytic: Succinylcholine Laryngoscope: Annabel Size: 4 ET Tube Size: 7.5 ET Tube Uncuffed: No Tube Secured Depth (cm): 24 Tube Secured Location: teeth Tube Placement Confirmation: visualized tube passing through cords, equal breath sounds bilaterally, no breath sounds over epigastrium Patient Tolerated Procedure: well Intubation Complications: none
[2018-04-16 17:10] LABS: Glucose,Whole Blood 200 mg/dL (75-99)
[2018-04-16] MEDS: LORazepam 2 MG/ML INJ IV PRN (20:10)
[2018-04-16 21:18] LABS: Glucose,Whole Blood 195 mg/dL (75-99)
[2018-04-16] MEDS: SENNOSIDES 8.6 MG TAB PO SCH (21:42)
--- NOTE | 2018-04-16 21:51 | PN ---
PROGRESS NOTE DATE OF SERVICE: 04/16/2018. PRESENTING COMPLAINT: Tired. INTERVAL HISTORY: This patient presented with increasing confusion, passing found to be in acute renal failure. Creatinine has been slowly coming down. The patient was extubated on April 13, 2018. Had been on pressors. The patient was moved to the medical floor. Did have a right-sided renal biopsy today. Making urine. Did walk out to the hallway, feeling better. REVIEW OF SYSTEMS: Done for constitutional, cardiovascular, GI, pulmonary and relevant findings as above. CURRENT MEDICATIONS: Reviewed include saline. PHYSICAL EXAMINATION: VITAL SIGNS: Temperature 97.8, pulse 74, respiratory 18, blood pressure 107/74, pulse ox 98% on room air. GENERAL APPEARANCE: Sitting on bed, comfortable. EYES: Pupils equal. Conjunctivae normal. HEENT: External appearance of nose and ears normal. Oral cavity normal. NECK: JVD not raised. Mass not palpable. RESPIRATORY: Effort normal. LUNGS: Fair entry. CARDIOVASCULAR: First and second sounds normal. Minimal edema. ABDOMEN: Soft, nontender. Liver and spleen not palpable. PSYCHIATRY: Alert and oriented x3. Mood and affect normal. INVESTIGATIONS: White count 7.8, hemoglobin 11.4, potassium 3.9, BUN 25, creatinine 4.43. ASSESSMENT: 1. Acute respiratory failure related to severe metabolic acidosis. The patient was on ventilator support, now extubated. 2. Possible aspiration pneumonia, status post completing antibiotics. 3. Acute severe lactic acidosis for multiple reasons. 4. Acute kidney injury nonoliguric, slow to respond, status post kidney biopsy. 5. Hypothermia, multifactorial. 6. Hyponatremia possibly hypoosmolar. 7. Diabetes mellitus type 2 on oral hypoglycemic. 8. Peripheral neuropathy secondary to diabetes. 9. Depression, not otherwise specified. 10.Essential hypertension. 11.Asencio's esophagus. 12.Chronic alcoholic hepatitis. 13.Normocytic anemia cause undetermined. 14.Hypotensive shock, status post Levophed. PLAN: The patient is status post renal biopsy today. Continue current medication and treatment plan. Patient is making decent urine. Encouraged to ambulate. Follow with Nephrology. MMODL / IJN: [id number] /
[2018-04-17 07:59] LABS: Glucose,Whole Blood 179 mg/dL (75-99)
[2018-04-17] MEDS: INSULIN ASPART 100 UNIT/ML 1 ML 10 ML VIAL SQ SCH ×4 (08:22→21:15)
[2018-04-17] MEDS: PANTOPRAZOLE 40 MG TABLET PO SCH (08:22)
[2018-04-17] MEDS: THIAMINE 100 MG/ML 2 ML VIAL IVP SCH (08:23)
--- NOTE | 2018-04-17 08:31 | P.PN ---
Subjective Patient is seen in follow-up for acute kidney injury. His baseline creatinine is 1 and was elevated at 9.37 this admission. Patient was oliguric and subsequently started on hemodialysis. Currently off IV fluids. He is awake and alert. Oral intake is good. Denies chest pain or shortness of breath. Denies any prior history of kidney disease. Urine output has improved significantly, however creatinine worsened without dialysis. He underwent a kidney biopsy in April 16. Overall feels well. Vital signs are stable. General: The patient appeared well nourished and normally developed. HEENT: Head exam is unremarkable. Neck is without jugular venous distension. LUNGS: Lungs are clear to auscultation and percussion. Breath sounds decreased. HEART: Rate and Rhythm are regular. First and second heart sounds normal. No murmurs, rubs or gallops. ABDOMEN: Abdominal exam reveals normal bowel sounds. Non-tender and non- distended. No evidence of peritonitis. EXTREMITITES: 1+ edema. Objective - Vital Signs Vital signs: Vital Signs Temp 98.4 F 04/17/18 08:00 Pulse 76 04/17/18 08:00 Resp 16 04/17/18 08:00 BP 116/74 04/17/18 08:00 Pulse Ox 98 04/17/18 08:00 Intake & Output 04/16/18 04/17/18 04/17/18 18:59 06:59 18:59 Intake Total 480 Output Total 1598 200 Balance -1118 -200 Weight 98.7 kg Intake: Oral 480 Output: Urine 1598 200 Other: Voiding Method Indwelling Catheter Toilet Urinal # Voids 0 3 # Bowel Movements 0 ABP, PAP, CO, CI - Last Documented Arterial Blood Pressure 101/54 - Labs CBC & Chem 7: 04/16/18 09:09 04/16/18 09:09 Labs: Abnormal Lab Results - Last 24 Hours (Table) 04/15/18 04/16/18 04/16/18 Range/Units 04:17 09:09 09:09 RBC 3.68 L (4.30-5.90) m/uL Hgb 11.4 L (13.0-17.5) gm/dL Hct 33.2 L (39.0-53.0) % Sodium 134 L (137-145) mmol/L BUN 25 H (9-20) mg/dL Creatinine 4.43 H (0.66-1.25) mg/dL Glucose 177 H (74-99) mg/dL POC Glucose (mg/dL) (75-99) mg/dL Phosphorus 2.4 L (2.5-4.5) mg/dL Albumin (PEP) 2.28 L (3.80-4.90) g/dL Beta Globulins 0.46 L (0.60-1.30) g/dL Gamma Globulins 0.38 L (0.70-1.50) g/dL 04/16/18 04/16/18 04/16/18 Range/Units 11:52 17:07 21:17 RBC (4.30-5.90) m/uL Hgb (13.0-17.5) gm/dL Hct (39.0-53.0) % Sodium (137-145) mmol/L BUN (9-20) mg/dL Creatinine (0.66-1.25) mg/dL Glucose (74-99) mg/dL POC Glucose (mg/dL) 109 H 200 H 195 H (75-99) mg/dL Phosphorus (2.5-4.5) mg/dL Albumin (PEP) (3.80-4.90) g/dL Beta Globulins (0.60-1.30) g/dL Gamma Globulins (0.70-1.50) g/dL 04/17/18 Range/Units 07:29 RBC (4.30-5.90) m/uL Hgb (13.0-17.5) gm/dL Hct (39.0-53.0) % Sodium (137-145) mmol/L BUN (9-20) mg/dL Creatinine (0.66-1.25) mg/dL Glucose (74-99) mg/dL POC Glucose (mg/dL) 179 H (75-99) mg/dL Phosphorus (2.5-4.5) mg/dL Albumin (PEP) (3.80-4.90) g/dL Beta Globulins (0.60-1.30) g/dL Gamma Globulins (0.70-1.50) g/dL Microbiology - Last 24 Hours (Table) 04/11/18 10:29 Blood Culture - Preliminary Blood No Growth after 120 hours 11/24/18 08:06 Blood Culture - Preliminary Blood No Growth after 96 hours Assessment and Plan Plan: Assessment: 1. Oliguric, now nonoliguric, acute kidney injury secondary to hemodynamic ATN. Off Levophed at this time. Currently hemodialysis dependent. Baseline creatinine near 1. Patient's noted to have proteinuria as well as RBCs on UA. Hepatitis panel is negative. C3 level is low. Urine eosinophils negative. No evidence of hydronephrosis noted on renal ultrasound. 2. Metabolic acidosis maintain on bicarb drip. Improved. Toxic alcohol levels noted to be negative. 3. Hyponatremia secondary to acute kidney injury. Improved. 4. History of alcoholism. 5. Hypophosphatemia from IV bicarb leading to intracellular shifting. Plan: Remains off all IV fluids. Encouraged oral intake. Avoid nephrotoxins. Vancomycin discontinued. Follow-up serologies. Await kidney biopsy results. Monitor renal function and urine output closely. Assess for renal placement therapy on day-to-day basis - hold dialysis today. Strict I's and O's. If renal function worse tomorrow, he will need a permacath placement and outpatient dialysis set up.
[2018-04-17 11:22] LABS: Calcium 8.6 mg/dL (8.4-10.2); Magnesium 1.5 mg/dL (1.6-2.3); Phosphorus 2.8 mg/dL (2.5-4.5); Potassium 3.7 mmol/L (3.5-5.1)
[2018-04-17 12:00] LABS: Glucose,Whole Blood 129 mg/dL (75-99)
[2018-04-17] MEDS: ENOXAPARIN 30 MG/0.3 ML SYRINGE SQ SCH (12:12)
[2018-04-17] MEDS: SODIUM CHLORIDE 0.9% 500 ML 500 ML IV SCH (12:13)
[2018-04-17 17:30] LABS: Glucose,Whole Blood 156 mg/dL (75-99)
[2018-04-17] MEDS: SENNOSIDES 8.6 MG TAB PO SCH (19:47)
[2018-04-17 20:56] LABS: Glucose,Whole Blood 106 mg/dL (75-99)
[2018-04-17] MEDS ORDERED: ACETAMINOPHEN TAB 325 MG TAB PO PRN (23:20)
--- NOTE | 2018-04-18 00:01 | PN ---
PROGRESS NOTE DATE OF SERVICE: 04/17/2018 PRESENTING COMPLAINT: Tired. INTERVAL HISTORY: This patient presented with acute confusion; passed out at home. Found to be in acute renal failure. The patient has had 3 dialysis. Also had a kidney biopsy done yesterday. Overall doing better. Making some urine. Tolerating his diet. Has been out of bed. REVIEW OF SYSTEMS: Done for constitutional, cardiovascular, GI, pulmonary; relevant findings as above. CURRENT MEDICATIONS: Reviewed. PHYSICAL EXAMINATION: Temperature 98.6, pulse 103, respiration 20, blood pressure 134/90, pulse ox 91% on room air. GENERAL APPEARANCE: Sitting up on bed, comfortable. EYES: Pupils equal. Conjunctivae normal. NECK: JVD not raised. Mass not palpable. RESPIRATORY: Effort normal. Lungs are clear. CARDIOVASCULAR: First and second sounds normal. Minimal edema. ABDOMEN: Soft, non-tender. Liver and spleen not palpable. PSYCHIATRY: Alert and oriented x3. Mood and affect normal. INVESTIGATIONS: Potassium 3.7, BUN 19, creatinine 3. ASSESSMENT: 1. Acute respiratory failure related to severe metabolic acidosis. The patient is on ventilator support. 2. Possible aspiration pneumonia, status post completing antibiotics. 3. Acute severe lactic acidosis for multiple reasons. 4. Acute kidney injury, nonoliguric. The patient is status post kidney biopsy, on hemodialysis. 5. Hypothermia, multifactorial. 6. Hyponatremia, possibly hypoosmolar. 7. Diabetes mellitus, type 2, on oral hypoglycemic. 8. Peripheral neuropathy secondary to diabetes. 9. Depression not otherwise specified. 10.Essential hypertension. 11.Asencio's esophagus. 12.Chronic alcoholic hepatitis. 13.Normocytic anemia, cause undetermined. 14.Hypotensive shock, status post Levophed. I discussed with Dr. Funez. Depending on the renal function, may get more hemodialyzed. Looking at going home shortly. Care was discussed with the patient. MMODL / IJN: [id number] /
[2018-04-18 07:37] LABS: Glucose,Whole Blood 104 mg/dL (75-99)
[2018-04-18] MEDS: INSULIN ASPART 100 UNIT/ML 1 ML 10 ML VIAL SQ SCH ×4 (07:59→21:00)
[2018-04-18] MEDS: ENOXAPARIN 30 MG/0.3 ML SYRINGE SQ SCH (08:06)
[2018-04-18] MEDS: PANTOPRAZOLE 40 MG TABLET PO SCH (08:06)
[2018-04-18] MEDS: MAGNESIUM OXIDE 400 MG TAB PO SCH (08:07)
[2018-04-18] MEDS: THIAMINE 100 MG/ML 2 ML VIAL IVP SCH (08:10)
--- NOTE | 2018-04-18 09:24 | P.PN ---
Subjective Patient is seen in follow-up for acute kidney injury. His baseline creatinine is 1 and was elevated at 9.37 this admission. Patient was oliguric and subsequently started on hemodialysis. Currently off IV fluids. He is awake and alert. Oral intake is good. Denies chest pain or shortness of breath. Denies any prior history of kidney disease. Urine output has improved significantly, however creatinine worsened without dialysis. He underwent a kidney biopsy in April 16 which revealed acute tubular injury with mild to moderate interstitial fibrosis. Overall feels well. Vital signs are stable. General: The patient appeared well nourished and normally developed. HEENT: Head exam is unremarkable. Neck is without jugular venous distension. LUNGS: Lungs are clear to auscultation and percussion. Breath sounds decreased. HEART: Rate and Rhythm are regular. First and second heart sounds normal. No murmurs, rubs or gallops. ABDOMEN: Abdominal exam reveals normal bowel sounds. Non-tender and non- distended. No evidence of peritonitis. EXTREMITITES: 1+ edema. Objective - Vital Signs Vital signs: Vital Signs Temp 97.9 F 04/18/18 07:40 Pulse 70 04/18/18 07:40 Resp 18 04/18/18 07:40 BP 147/86 04/18/18 07:40 Pulse Ox 99 04/18/18 07:40 Intake & Output 04/17/18 04/18/18 04/18/18 18:59 06:59 18:59 Intake Total 240 Balance 240 Weight 103.5 kg Intake: Oral 240 Other: Voiding Method Toilet Toilet # Voids 3 2 ABP, PAP, CO, CI - Last Documented Arterial Blood Pressure 101/54 - Labs CBC & Chem 7: 04/16/18 09:09 04/17/18 10:42 Labs: Abnormal Lab Results - Last 24 Hours (Table) 04/17/18 04/17/18 04/17/18 Range/Units 10:42 11:57 17:27 Sodium 136 L (137-145) mmol/L Carbon Dioxide 31 H (22-30) mmol/L Creatinine 3.00 H (0.66-1.25) mg/dL Glucose 61 L (74-99) mg/dL POC Glucose (mg/dL) 129 H 156 H (75-99) mg/dL Magnesium 1.5 L (1.6-2.3) mg/dL 04/17/18 04/18/18 Range/Units 20:55 07:23 Sodium (137-145) mmol/L Carbon Dioxide (22-30) mmol/L Creatinine (0.66-1.25) mg/dL Glucose (74-99) mg/dL POC Glucose (mg/dL) 106 H 104 H (75-99) mg/dL Magnesium (1.6-2.3) mg/dL Microbiology - Last 24 Hours (Table) 04/11/18 10:29 Blood Culture - Final Blood No Growth after 144 hours 04/12/18 08:06 Blood Culture - Preliminary Blood No Growth after 120 hours Assessment and Plan Plan: Assessment: 1. Oliguric, now nonoliguric, acute kidney injury secondary to hemodynamic ATN. Off Levophed at this time. Currently hemodialysis dependent. Baseline creatinine near 1. Patient's noted to have proteinuria as well as RBCs on UA. Hepatitis panel is negative. C3 level is low. Urine eosinophils negative. No evidence of hydronephrosis noted on renal ultrasound. Renal biopsy done April 08 revealed acute tubular injury with mild to moderate interstitial fibrosis. 2. Metabolic acidosis s/p bicarb drip. Improved. Toxic alcohol levels noted to be negative. 3. Hyponatremia secondary to acute kidney injury. Improved. 4. History of alcoholism. 5. Hypophosphatemia from IV bicarb leading to intracellular shifting. Improved post replacement. Plan: Remains off all IV fluids. Encouraged oral intake. Avoid nephrotoxins. Vancomycin discontinued. Monitor renal function and urine output closely. Assess for renal placement therapy on day-to-day basis. Follow-up morning labs. If renal function worse compared to yesterday, will continue with dialysis and get a permacath placed. Expect renal recovery over the next few days.
[2018-04-18] MEDS ORDERED: MAGNESIUM SULFATE-D5W PMX 1 GM in DEXTROSE/WATER 1 100ML.BAG IVPB ONE (09:30)
[2018-04-18 10:12] LABS: Phosphorus 3.3 mg/dL (2.5-4.5); Potassium 3.6 mmol/L (3.5-5.1)
[2018-04-18] MEDS ORDERED: POTASSIUM CHLORIDE ER 20 MEQ TAB.ER PO STA (10:43)
[2018-04-18] MEDS: SODIUM CHLORIDE 0.9% 500 ML 500 ML IV SCH (11:01)
[2018-04-18 11:53] LABS: Glucose,Whole Blood 140 mg/dL (75-99)
--- NOTE | 2018-04-18 15:11 | PCN ---
PROCEDURE NOTE This patient had a right femoral catheter for renal failure. I was called in for removal of the dialysis catheter. The patient was seen in his room. Right groin was prepped and draped in usual sterile manner. His stitches were removed and the catheter was removed. Pressure was held for 5 minutes. Dressing was applied. Patient tolerated the procedure well. ELEAZAR / VERONICA: [id number] /
[2018-04-18 17:18] LABS: Glucose,Whole Blood 141 mg/dL (75-99)
[2018-04-18 20:42] LABS: Glucose,Whole Blood 135 mg/dL (75-99)
[2018-04-18] MEDS: SENNOSIDES 8.6 MG TAB PO SCH (21:01)
--- NOTE | 2018-04-19 01:08 | PN ---
PROGRESS NOTE DATE OF SERVICE: April 18, 2018. PRESENTING COMPLAINT: Tired. INTERVAL HISTORY: Patient presented with acute confusion, passed out at home, found to be in acute renal failure, renal CT biopsy come back showing ATN. The patient has had a few dialysis. Plan is for the dialysis catheter to come out, when I saw the patient this afternoon. Continues to do well, up and about. Kidney function is improving. REVIEW OF SYSTEMS: Done for constitutional, cardiovascular, GI, pulmonary; relevant findings as above. MEDICATIONS: Current medications reviewed. PHYSICAL EXAMINATION: VITAL SIGNS: Temperature 96.7, pulse 85, respiration 16, blood pressure 130/90. Pulse ox 97% on room air. GENERAL APPEARANCE: Sitting up, comfortable. EYES: Pupils equal. Conjunctivae normal. NECK: JVD not raised. Mass not palpable. RESPIRATORY: Effort normal. LUNGS are clear. CARDIOVASCULAR: 1st and 2nd sounds normal. No edema. ABDOMEN: Soft, nontender. Liver and spleen not palpable. Right groin dialysis catheter. PSYCHIATRY: Alert and oriented x3. Mood and affect normal. INVESTIGATIONS: Potassium 3.6, BUN 16, creatinine 2.65. ASSESSMENT: 1. Acute respiratory failure related to severe metabolic acidosis, status post ventilator support. 2. Aspiration pneumonia, status post completed antibiotics. 3. Acute severe lactic acidosis, status post. 4. Acute kidney injury acute tubular necrosis, improving, status post dialysis. 5. Hypothermia, multifactorial. 6. Hyponatremia possibly hyperosmolar. 7. Diabetes mellitus type 2 on oral hypoglycemic. 8. Peripheral neuropathy secondary to diabetes. 9. Depression, not otherwise specified. 10.Essential hypertension. 11.Asencio's esophagus. 12.Chronic alcoholic hepatitis. 13.Normocytic anemia cause undetermined. 14.Hypotensive shock status post Levophed. PLAN: Overall patient doing better. Plan later is to have dialysis catheter removed. The patient continues to improve. MMODL / IJN: [id number] /
[2018-04-19 01:43] VITALS: RESP 18
[2018-04-19 07:33] VITALS: BP 141/89; PULSE 75; TEMP 98.3
[2018-04-19 07:37] LABS: Glucose,Whole Blood 141 mg/dL (75-99)
[2018-04-19] MEDS: PANTOPRAZOLE 40 MG TABLET PO SCH (08:15)
[2018-04-19] MEDS: THIAMINE 100 MG/ML 2 ML VIAL IVP SCH (08:15)
[2018-04-19] MEDS: ENOXAPARIN 30 MG/0.3 ML SYRINGE SQ SCH (08:15)
[2018-04-19] MEDS: MAGNESIUM OXIDE 400 MG TAB PO SCH (08:15)
[2018-04-19] MEDS: INSULIN ASPART 100 UNIT/ML 1 ML 10 ML VIAL SQ SCH ×2 (08:16→12:43)
[2018-04-19 09:30] LABS: Calcium 8.2 mg/dL (8.4-10.2); Potassium 3.6 mmol/L (3.5-5.1)
[2018-04-19 12:40] LABS: Glucose,Whole Blood 102 mg/dL (75-99)
[2018-04-19] MEDS ORDERED: TAMSULOSIN 0.4 MG CAP.ER.24H PO SCH (18:30)
--- NOTE | 2018-04-21 06:47 | DS ---
DISCHARGE SUMMARY DATE OF ADMISSION: 04/11/2018 DATE OF DISCHARGE: 04/19/2018 FINAL DIAGNOSES: 1. Acute kidney injury/acute renal failure from acute tubular necrosis, present on admission. 2. Acute respiratory failure related to severe metabolic acidosis leading to ventilator support. 3. Aspiration pneumonia, status post completing antibiotics. 4. Acute severe lactic acidosis. 5. Hypothermia, multifactorial. 6. Hyponatremia possibly hypoosmolar. 7. Diabetes mellitus type 2 on oral hypoglycemic. 8. Peripheral neuropathy secondary to diabetes. 9. Depression, not otherwise specified. 10.Essential hypertension. 11.Asencio's esophagus. 12.Chronic alcoholic hepatitis. 13.Normocytic anemia, cause undetermined. 14.Hypotensive shock. Patient was on pressors including Levophed. HOSPITAL COURSE: This patient passed out at home, found to be in acute renal failure. Came in with creatinine of 9.7. The patient did get hemodialyzed about 3 to 4 times. Dialysis catheter was removed the day before discharge. Creatinine has started to come down. Patient is making urine. Last creatinine on the day of discharge was 2.34. Patient is tolerating a diet, up and about. CONSULTATION: Dr. Robi Harvey from Vascular Surgery; Dr. Funez and associates from Nephrology; Dr. Marshall from Critical Care. PHYSICAL EXAMINATION: On examination, temperature 98.3 pulse75, respiration 18, blood pressure 141/89, pulse ox 98% on room air. LUNGS: Fair entry. CARDIOVASCULAR: First and second sounds normal. LABS: Potassium 3.6, BUN 15, creatinine 2.34. DISCHARGE MEDICATIONS: 1. Prilosec 20 mg a.c. b.i.d. 2. Lexapro 20 mg b.i.d. 3. Neurontin 100 mg p.o. t.i.d. 4. Lopressor 25 mg p.o. b.i.d. 5. Flomax 0.4 mg before supper. 6. Glucophage 500 mg p.o. a.c. b.i.d. Follow up with Dr. Barragan in 3 days. Follow up with Dr. Funez in 1 week. BMP in 3 days. MMODL / IJN: [id number] /
== END 2018-04-19 15:10 | disposition home or self-care (01) | DRG 208 ==
LOC: EC 09:41 → 2SICU 13:08 → 4MS4W 04-15 21:14
PROVIDERS: ADMIT Hospitalist; ATTEND Hospitalist
PROC: 5A1945Z Respiratory Ventilation, 24-96 Consecutive Hours (ICD-10-PCS; principal; 2018-04-11)
PROC: 0BH17EZ Insertion of Endotracheal Airway into Trachea, Via Natural or Artificial Opening (ICD-10-PCS; 2018-04-11)
PROC: 02H633Z Insertion of Infusion Device into Right Atrium, Percutaneous Approach (ICD-10-PCS; 2018-04-11)
PROC: 0D9670Z Drainage of Stomach with Drainage Device, Via Natural or Artificial Opening (ICD-10-PCS; 2018-04-11)
PROC: 03HY32Z Insertion of Monitoring Device into Upper Artery, Percutaneous Approach (ICD-10-PCS; 2018-04-12)
PROC: 4A133B1 Monitoring of Arterial Pressure, Peripheral, Percutaneous Approach (ICD-10-PCS; 2018-04-12)
PROC: 4A133J1 Monitoring of Arterial Pulse, Peripheral, Percutaneous Approach (ICD-10-PCS; 2018-04-12)
PROC: 06HY33Z Insertion of Infusion Device into Lower Vein, Percutaneous Approach (ICD-10-PCS; 2018-04-12)
PROC: 3E0G76Z Introduction of Nutritional Substance into Upper GI, Via Natural or Artificial Opening (ICD-10-PCS; 2018-04-12)
PROC: 5A1D70Z Performance of Urinary Filtration, Intermittent, Less than 6 Hours Per Day (ICD-10-PCS; 2018-04-12)
PROC: 06HY33Z Insertion of Infusion Device into Lower Vein, Percutaneous Approach (ICD-10-PCS; 2018-04-14)
PROC: 5A1D70Z Performance of Urinary Filtration, Intermittent, Less than 6 Hours Per Day (ICD-10-PCS; 2018-04-14)
PROC: 5A1D70Z Performance of Urinary Filtration, Intermittent, Less than 6 Hours Per Day (ICD-10-PCS; 2018-04-14)
PROC: 0TB03ZX Excision of Right Kidney, Percutaneous Approach, Diagnostic (ICD-10-PCS; 2018-04-16)
PROC: 5A1D70Z Performance of Urinary Filtration, Intermittent, Less than 6 Hours Per Day (ICD-10-PCS; 2018-04-16)
PROC: 06PYX3Z Removal of Infusion Device from Lower Vein, External Approach (ICD-10-PCS; 2018-04-18)
DX: J96.00 Acute respiratory failure, unspecified whether with hypoxia or hypercapnia (principal); R57.1 Hypovolemic shock; N17.0 Acute kidney failure with tubular necrosis; J69.0 Pneumonitis due to inhalation of food and vomit; F05 Delirium due to known physiological condition; E87.2 Acidosis; E87.1 Hypo-osmolality and hyponatremia; J90 Pleural effusion, not elsewhere classified; T68.XXXA Hypothermia, initial encounter; K70.10 Alcoholic hepatitis without ascites; E11.42 Type 2 diabetes mellitus with diabetic polyneuropathy; E83.39 Other disorders of phosphorus metabolism; E11.65 Type 2 diabetes mellitus with hyperglycemia; I10 Essential (primary) hypertension; E87.6 Hypokalemia; D64.9 Anemia, unspecified; K76.9 Liver disease, unspecified; M10.9 Gout, unspecified; K21.9 Gastro-esophageal reflux disease without esophagitis; G89.29 Other chronic pain; F32.9 Major depressive disorder, single episode, unspecified; M19.90 Unspecified osteoarthritis, unspecified site; M54.5 Low back pain; F10.20 Alcohol dependence, uncomplicated; L98.9 Disorder of the skin and subcutaneous tissue, unspecified; Y90.0 Blood alcohol level of less than 20 mg/100 ml; F17.200 Nicotine dependence, unspecified, uncomplicated; Z71.6 Tobacco abuse counseling; Z79.84 Long term (current) use of oral hypoglycemic drugs; Z79.899 Other long term (current) drug therapy; Z87.19 Personal history of other diseases of the digestive system; Z87.440 Personal history of urinary (tract) infections; Z88.5 Allergy status to narcotic agent; Z83.3 Family history of diabetes mellitus; Z80.0 Family history of malignant neoplasm of digestive organs; Z82.0 Family history of epilepsy and other diseases of the nervous system; Z82.1 Family history of blindness and visual loss; Z82.69 Family history of other diseases of the musculoskeletal system and connective tissue; Z99.2 Dependence on renal dialysis
CPT/HCPCS: 31500; 36415; 36556; 36600; 70450; 71045; 76770; 77012; 80048; 80053; 80202; 80306; 80320; 81001; 82140; 82533; 82550; 82553; 82570; 82805; 83036; 83605; 83735; 83930; 83935; 84100; 84132; 84156; 84165; 84439; 84443; 84484; 84600; 85025; 85610; 85730; 86038; 86160; 86255; 86334; 86335; 86704; 86706; 86850; 86900; 86901; 87040; 87070; 87086; 87205; 87324; 87340; 90935; 93005; 94002; 94003; 94640; 94760; 96361; 96365; 96366; 96368; 96375; 96376; 99291; 99292

== ENCOUNTER → 2022-10-18 | Outpatient (CLI) | payer MEDICARE ==
--- NOTE | 2022-10-18 08:15 | US ---
EXAMINATION TYPE: US liver DATE OF EXAM: 10/18/2022 COMPARISON: None CLINICAL INDICATION: Male, 61 years old with history of R74.01 ELEV LIVER TRANSAMINASE LEVELS; Abnorm al labs. TECHNIQUE: Multiple sonographic images of the right upper quadrant are obtained. FINDINGS: EXAM MEASUREMENTS: Liver Length: 17.0 cm Gallbladder Wall: 0.2 cm CBD: 0.5 cm Right Kidney: 9.9 x 5.1 x 4.5 cm Pancreas: Echogenic in appearance. Head and tail obscured by bowel gas. Liver: Heterogenous Gallbladder: Multiple mobile echogenic foci Evidence for sonographic Guerrero's sign: neg CBD: wnl Right Kidney: No hydronephrosis or masses seen IMPRESSION: 1. Heterogenous echotexture to liver correlate for hepatocellular disease. 2. Cholelithiasis
== END | disposition home or self-care (01) ==
LOC: RADUSWWP 07:08
PROVIDERS: ATTEND Family Medicine
DX: K80.20 Calculus of gallbladder without cholecystitis without obstruction (principal); R93.2 Abnormal findings on diagnostic imaging of liver and biliary tract; R74.01 Elevation of levels of liver transaminase levels
CPT/HCPCS: 76705

== ENCOUNTER → 2023-02-06 | Outpatient (CLI) | payer MEDICARE ==
[2023-02-06 11:23] LABS: Basophils # (A) 0.06 X 10*3/uL (0.00-0.10); Basophils % (A) 1.1 %; Eosinophils # (A) 0.14 X 10*3/uL (0.04-0.35); Eosinophils % (A) 2.5 %; HCT 36.3 % (39.6-50.0); HGB 11.8 d/dL (13.0-17.0); Lymphocytes # (A) 1.47 X 10*3/uL (0.90-5.00); Lymphocytes % (A) 26.3 %; MCH 30.3 pg (27.0-32.0); MCHC 32.5 d/dL (32.0-37.0); MCV 93.1 FL (80.0-97.0); Mean Platelet Volume 9.6 FL (9.5-12.2); Monocytes # (A) 0.47 X 10*3/uL (0.20-1.00); Monocytes % (A) 8.4 %; NRBC Per 100 WBC 0 X 10*3/uL (0.00-0.01); Neutrophils # (A) 3.43 X 10*3/uL (1.80-7.70); Neutrophils % (A) 61.3 %; Platelet Count 194 X 10*3/uL (140-440); RDW 15.5 % (11.5-14.5); WBC 5.59 X 10*3/uL (4.50-10.00)
[2023-02-06 11:43] LABS: % Iron Saturation 28.18 (15.00-50.00); ALT 9 U/L (10-49); AST 18 U/L (14-35); Albumin 4.2 d/dL (3.8-4.9); Albumin/Globulin Ratio 2.33 Ratio (1.60-3.17); Alkaline Phosphatase 44 U/L (41-126); Calcium 10.2 mg/dL (8.7-10.3); Carbon Dioxide 25.9 mmol/L (21.6-31.8); Chloride 100 mmol/L (96-109); Ferritin 71.3 ng/mL (22.0-322.0); Globulin 1.8 d/dL (1.6-3.3); Glucose 133 mg/dL (70-110); Iron 82 UG/DL (65-175); Potassium 4.9 mmol/L (3.5-5.5); Sodium 136 mmol/L (135-145); Total Bilirubin 0.4 mg/dL (0.3-1.2); Total Iron Binding Capacity 291 UG/DL (228-460)
[2023-02-06 12:07] LABS: Ceruloplasmin 16.4 mg/dL (20.0-60.0)
[2023-02-06 12:32] LABS: Hepatitis B Surface Antigen Nonreactive; Hepatitis C IgG Antibody Nonreactive
[2023-02-07 08:52] LABS: Albumin 4.2 d/dL (3.8-4.9); Protein, Total 6.1 d/dL (6.2-8.2)
== END | disposition home or self-care (01) ==
LOC: LABWHC1 07:19
PROVIDERS: ATTEND Internal Medicine Gastroenterology
DX: R74.8 Abnormal levels of other serum enzymes (principal)
CPT/HCPCS: 36415; 80053; 82103; 82390; 82728; 83516; 83540; 83550; 84165; 85025; 86038; 86803; 87340